=== PATIENT | female | born 1945 | race Asian ===

== ENCOUNTER 2016-09-10 16:55 | Emergency (ER) | payer OTHER, MEDICARE ==
[2016-09-10] MEDS ORDERED: ACETAMINOPHEN 325 MG TABLET PO STA (17:27)
[2016-09-10] MEDS ORDERED: ACETAMINOPHEN 325 MG TABLET PO ONE (17:28)
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
[2016-09-10] MEDS ORDERED: BACITRACIN OINT TOP ONE (18:09)
--- NOTE | 2016-09-10 18:31 | XRAY Preliminary Report ---
Exam: XR Shoulder 3 View LT IMPRESSION: No acute fracture or dislocation. [id number] degenerative joint disease as above. [facility] SITE ID: [id number]
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
--- NOTE | 2016-09-10 18:39 | CT Preliminary Report ---
Exam: CT Cervical Spine W/O IMPRESSION: 1. No evidence for acute fracture. 2. Degenerative changes mild to severe. See above. [facility] SITE ID: [id number]
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
[2016-09-10 19:05] VITALS: BP 119/68
== END 2016-09-10 19:05 | disposition home or self-care (01) ==
LOC: ED 16:55
DX: S16.1XXA Strain of muscle, fascia and tendon at neck level, initial encounter (principal); V43.62XA Car passenger injured in collision with other type car in traffic accident, initial encounter; Y92.411 Interstate highway as the place of occurrence of the external cause; S40.012A Contusion of left shoulder, initial encounter; I10 Essential (primary) hypertension; E11.9 Type 2 diabetes mellitus without complications; Z79.84 Long term (current) use of oral hypoglycemic drugs
CPT/HCPCS: 72125; 73030; 99283; A9270

== ENCOUNTER 2016-11-21 14:53 | Outpatient (CLI) | payer MEDICARE, OTHER ==
[2016-11-21 19:15] LABS: BASOPHILS % (AUTO) 0.7 %; EOSINOPHILS # (AUTO) 0.1 10^3/uL (0.0-0.7); EOSINOPHILS % (AUTO) 1.3 %; HCT - HEMATOCRIT 39.8 % (37.0-47.0); HGB - HEMOGLOBIN 13.6 g/dL (12.0-16.0); LYMPHOCYTES # (AUTO) 2.3 10^3/uL (1.5-3.5); MEAN CORPUSCULAR HEMOGLOBIN 31.1 pg (27.0-31.0); MEAN CORPUSCULAR HGB CONC 34.1 g/dL (32.0-36.0); MEAN CORPUSCULAR VOLUME 91.4 fL (81.0-99.0); MONOCYTES # (AUTO) 0.4 10^3/uL (0.0-1.0); NEUTROPHILS # (AUTO) 2.3 10^3/uL (1.5-6.6); RED BLOOD COUNT 4.36 10^6/uL (4.20-5.40); UNCORRECTED WHITE BLOOD COUNT 5.2 x10^3/uL; WHITE BLOOD COUNT 5.2 x10^3/uL (4.8-10.8)
[2016-11-21 19:30] LABS: ALBUMIN/GLOBULIN RATIO 1.4 (1.0-2.2); BILIRUBIN,TOTAL 0.9 mg/dL (0.2-1.0); BUN - BLOOD UREA NITROGEN 16 mg/dL (6-20); CALCIUM 9.4 mg/dL (8.5-10.3); CARBON DIOXIDE - CO2 29 mmol/L (21-32); CHLORIDE 102 mmol/L (101-111); CHOL/HDL RATIO 3.6 (<4.4); CHOLESTEROL 214 mg/dL; CREATININE 0.9 mg/dL (0.4-1.0); GFR - MDRD 61 (>89); GLUCOSE 274 mg/dL (70-100); HDL CHOLESTEROL 59 mg/dL; SODIUM 137 mmol/L (135-145); TOTAL PROTEIN 6.6 g/dL (6.7-8.2); TRIGLYCERIDES 173 mg/dL; VLDL CHOLESTEROL 35 mg/dL
[2016-11-21 19:41] LABS: POTASSIUM 3.9 mmol/L (3.5-5.0)
[2016-11-21 20:03] LABS: HEMOGLOBIN A1C 1.11 g/dL
== END 2016-11-21 14:54 | disposition home or self-care (01) ==
LOC: LAB.N 14:53
PROVIDERS: ATTEND Nurse Practitioner Gerontology
DX: E11.9 Type 2 diabetes mellitus without complications (principal); I10 Essential (primary) hypertension
CPT/HCPCS: 36415; 80053; 80061; 83036; 85025

== ENCOUNTER 2018-01-30 15:45 | Outpatient (CLI) | payer OTHER, MEDICARE | END 2018-01-30 15:46 | disposition critical access hospital (66) | LOC: EMS 15:45 | PROVIDERS: ATTEND Surgery | DX: S09.90XA Unspecified injury of head, initial encounter (principal); M54.2 Cervicalgia; V48.5XXA Car driver injured in noncollision transport accident in traffic accident, initial encounter; Y92.410 Unspecified street and highway as the place of occurrence of the external cause | CPT/HCPCS: A0425; A0429 ==

== ENCOUNTER 2018-01-30 16:19 | Emergency (ER) | payer OTHER, MEDICARE ==
[2018-01-30] MEDS ORDERED: ACETAMINOPHEN 325 MG TABLET PO STA (16:26)
[2018-01-30] MEDS ORDERED: IBUPROFEN 600 MG TABLET PO STA (16:26)
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
[2018-01-30 17:59] VITALS: BP 135/74
== END 2018-01-30 17:58 | disposition home or self-care (01) ==
LOC: EDUNIT# → ED 16:19
DX: S00.03XA Contusion of scalp, initial encounter (principal); S16.1XXA Strain of muscle, fascia and tendon at neck level, initial encounter; V49.9XXA Car occupant (driver) (passenger) injured in unspecified traffic accident, initial encounter; I10 Essential (primary) hypertension; E11.9 Type 2 diabetes mellitus without complications; Z79.84 Long term (current) use of oral hypoglycemic drugs
CPT/HCPCS: 70450; 72125; 99283; A9270

== ENCOUNTER 2018-03-11 08:00 | Outpatient (CLI) | payer MEDICARE ==
[2018-03-11 20:19] LABS: HB2 TOTAL 16.5 g/dL; HEMOGLOBIN A1C 1.46 g/dL; HEMOGLOBIN A1C % 10.2 % (4.6-6.2)
== END 2018-03-11 23:59 | disposition home or self-care (01) ==
LOC: LAB.N 08:00
PROVIDERS: ATTEND Nurse Practitioner Gerontology
DX: E11.9 Type 2 diabetes mellitus without complications (principal)
CPT/HCPCS: 36415; 83036

== ENCOUNTER 2018-09-25 13:59 | Inpatient (IN) | payer MEDICARE ==
[2018-09-25] MEDS ORDERED: SODIUM CHLORIDE 0.9% 1,000 ML IV ONE ×3 (14:35→15:52)
[2018-09-25] MEDS ORDERED: NALOXONE 0.4 MG/ML VIAL IVP STA (14:38)
[2018-09-25 14:46] LABS: BASOPHILS % (AUTO) 0.3 %; HGB - HEMOGLOBIN 15.2 g/dL (12.0-16.0); LYMPHOCYTES % (AUTO) 35.9 %; MEAN CORPUSCULAR HEMOGLOBIN 29.5 pg (27.0-31.0); MEAN CORPUSCULAR VOLUME 92.2 fL (81.0-99.0); MEAN PLATELET VOLUME 9.3 fL (7.9-10.8); MONOCYTES % (AUTO) 5.9 %; NEUTROPHILS % (AUTO) 57.2 %; PLT - PLATELET COUNT 236 10^3/uL (130-450); RED BLOOD COUNT 5.15 10^6/uL (4.20-5.40); RED CELL DISTRIBUTION WIDTH 13.8 % (12.0-15.0); WHITE BLOOD COUNT 2.9 x10^3/uL (4.8-10.8)
[2018-09-25] MEDS ORDERED: NALOXONE 0.4 MG/ML VIAL ONE (14:47)
[2018-09-25 14:55] LABS: ABNORMAL LYMPHS % (MANUAL) 0 %
[2018-09-25 15:03] LABS: ALBUMIN 3.4 g/dL (3.2-5.5); ALBUMIN/GLOBULIN RATIO 1.1 (1.0-2.2); BILIRUBIN,TOTAL 2.8 mg/dL (0.2-1.0); CALCIUM 7.6 mg/dL (8.5-10.3); CREATININE 3.4 mg/dL (0.4-1.0); TOTAL PROTEIN 6.5 g/dL (6.7-8.2)
[2018-09-25] MEDS ORDERED: IOVERSOL 320 100 ML VIAL IVP ONE (15:10)
[2018-09-25 15:22] LABS: BILIRUBIN,URINE NEGATIVE (NEGATIVE); GLUCOSE, URINE (UA) 100 mg/dL (NEGATIVE); KETONES,URINE (UA) 15 mg/dL (NEGATIVE); LEUKOCYTE ESTERASE, URINE SMALL (NEGATIVE); NITRITE,URINE POSITIVE (NEGATIVE); OCCULT BLOOD,URINE MODERATE (NEGATIVE); PH,URINE 5.5 PH (5.0-7.5); PROTEIN,URINE 30 mg/dL (NEGATIVE); UROBILINOGEN,URINE 0.2 (NORMAL) E.U./dL (NORMAL)
[2018-09-25 15:25] LABS: BACTERIA,URINE Many /HPF (None Seen); CLARITY,URINE SL. CLOUDY (CLEAR); RBC,URINE 0-5 /HPF (0-5); SQUAMOUS EPITHELIAL CELL,UR RARE Squamous (<= Few)
[2018-09-25] MEDS ORDERED: VANCOMYCIN INJ 1 GM in SODIUM CHLORIDE 0.9% 500 ML IV STA (15:38)
[2018-09-25] MEDS ORDERED: cefOXitin 2 GM in SODIUM CHLORIDE 0.9% MINIBAG 100 ML IV STA (15:39)
--- NOTE | 2018-09-25 15:40 | ED Physician Documentation ---
PD HPI ABD PAIN - Stated complaint Stated Complaint: ABD PX - Chief complaint Chief Complaint: Abd Pain - History obtained from History obtained from: Patient - History of Present Illness Timing - onset: Yesterday Timing - details: Gradual onset Quality: Pain Location: All over / everywhere Similar symptoms before: Has not had sx before Recently seen: Emergency Dept (at [facility] yesterday.) - Treatment prior to arrival Treatment prior to arrival: [place] - Additional information Additional information: The patient is a 73-year-old female with history of diabetes, who presents with generalized abdominal pain that started yesterday and has become significantly worse today. She was seen at [facility] emergency department yesterday with abdominal pain. Her laboratory results were unremarkable except for elevated blood sugar of 244. She underwent ultrasound of the right upper quadrant which was unremarkable. She was discharged with a diagnosis of probable gastritis versus esophagitis. Her pain has become worse today and she has taken 8 Vicodin tablets since yesterday. She denies vomiting today, but states that she did vomit once yesterday. She denies fever, cough, chest pain, or shortness of breath. She reports difficulty with urination. She denies history of similar symptoms in the past. Review of Systems Constitutional: denies: Fever Nose: denies: Congestion Cardiac: denies: Chest pain / pressure Respiratory: denies: Dyspnea, Cough GI: reports: Abdominal Pain, Nausea, Vomiting (yesterday but not today), Constipation. denies: Diarrhea : reports: Unable to Void Musculoskeletal: denies: Back pain Neurologic: reports: Generalized weakness PD PAST MEDICAL HISTORY - Past Medical History Cardiovascular: Hypertension Endocrine/Autoimmune: Type 2 diabetes - Past Surgical History Past Surgical History: No - Present Medications Home Medications: Ambulatory Orders Medication Instructions Recorded Confirmed Amlodipine Besylate [Norvasc] 10 mg PO DAILY 09/25/18 09/25/18 Canagliflozin [Invokana] 100 mg PO DAILY 09/25/18 09/25/18 Glipizide [Glucotrol] 10 mg PO DAILYWM 09/25/18 09/25/18 HYDROcod/ACETAM 5/325 [[place] 5/325] 1 - 2 tab PO Q6H PRN 09/25/18 09/25/18 Metformin HCl [Glucophage] 1,000 mg PO BIDWM 09/25/18 09/25/18 Omeprazole 20 mg PO QDAC 09/25/18 09/25/18 Ondansetron Odt [Zofran Odt] 4 mg PO Q6H PRN 09/25/18 09/25/18 - Allergies Allergies/Adverse Reactions: Allergies Allergy/AdvReac Type Severity Reaction Status Date / Time Penicillins Allergy Rash Verified 09/25/18 14:12 - Social History Does the pt smoke?: No Smoking Status: Never smoker Does the pt drink ETOH?: No Does the pt have substance abuse?: No - Immunizations Immunizations are current?: Yes - POLST Patient has POLST: No PD ED PE NORMAL - Vitals Vital signs reviewed: Yes (tachycardic) - General General: Well developed/nourished, Other (Drowsy [place] female who appears ill, moaning.) - HEENT HEENT: Atraumatic, Pharynx benign, Other (Pupils are 3 mm and equal bilaterally. Oropharynx is nonerythematous, buccal mucosa dry.) - Neck Neck: Supple, no meningeal sign, No JVD - Cardiac Cardiac: Other (Rapid rate, regular rhythm.) - Respiratory Respiratory: Clear bilaterally - Abdomen Abdomen: Other (Abdomen is distended and diffusely tender to palpation, with diffuse guarding.) - Back Back: No CVA TTP - Derm Derm: No rash - Extremities Extremities: No edema, No calf tenderness / cord - Neuro Neuro: Alert and oriented X 3, No motor deficit, No sensory deficit Results - Vitals Vitals: Vital Signs - 24 hr 09/25/18 09/25/18 09/25/18 14:07 14:30 15:00 Temperature 36.2 C L Heart Rate 118 H 93 97 Respiratory 18 23 26 H Rate Blood Pressure 99/45 L 80/57 L 91/50 L O2 Saturation 92 85 L 90 L 09/25/18 09/25/18 15:30 16:00 Temperature Heart Rate 96 Respiratory 25 H Rate Blood Pressure 88/63 L 113/63 O2 Saturation 92 Oxygen O2 Source Simple Mask - EKG (time done) 14:42 Rate: Rate (enter#) (100) Rhythm: Sinus tachycardia [place]: Normal Intervals: Normal IN QRS: Normal Ischemia: Normal ST segments Computer interpretation: Agree with computer - Labs Labs: Laboratory Tests 09/25/18 09/25/18 09/25/18 14:37 14:37 14:37 WBC 2.9 L RBC 5.15 Hgb 15.2 Hct 47.5 H MCV 92.2 MCH 29.5 MCHC 32.0 RDW 13.8 Plt Count 236 MPV 9.3 Neut # (Auto) Not Reportable Lymph # (Auto) Not Reportable [place] # (Auto) Not Reportable Eos # (Auto) Not Reportable Baso # (Auto) Not Reportable Absolute Nucleated RBC Not Reportable Total Counted 100 Band Neuts % (Manual) 14 H Abnorm Lymph % (Manual) 0 Metamyelocytes % 5 H Myelocytes % 3 H Nucleated RBC % Not Reportable Neutrophils # (Manual) 1.2 L Lymphocytes # (Manual) 1.2 L Monocytes # (Manual) 0.2 Eosinophils # (Manual) 0.0 Basophils # (Manual) 0.0 Differential Comment MANUAL DIFFERENTIAL WBC Morphology 1+ SMUDGE CELLS Platelet Estimate NORMAL (130-450,000) Platelet Morphology RARE GIANT PLATELETS RBC Morph Micro Appear NORMAL APPEARANCE Sodium 130 L Potassium 4.2 Chloride 94 L Carbon Dioxide 19 L Anion Gap 17.0 H BUN 38 H Creatinine 3.4 H Estimated GFR (MDRD) 13 L Glucose 269 H Lactic Acid Calcium 7.6 L Total Bilirubin 2.8 H AST 29 ALT 16 Alkaline Phosphatase 37 L Troponin I < 0.04 Total Protein 6.5 L Albumin 3.4 Globulin 3.1 Albumin/Globulin Ratio 1.1 Lipase 384 H 09/25/18 14:58 WBC RBC Hgb Hct MCV MCH MCHC RDW Plt Count MPV Neut # (Auto) Lymph # (Auto) [place] # (Auto) Eos # (Auto) Baso # (Auto) Absolute Nucleated RBC Total Counted Band Neuts % (Manual) Abnorm Lymph % (Manual) Metamyelocytes % Myelocytes % Nucleated RBC % Neutrophils # (Manual) Lymphocytes # (Manual) Monocytes # (Manual) Eosinophils # (Manual) Basophils # (Manual) Differential Comment WBC Morphology Platelet Estimate Platelet Morphology RBC Morph Micro Appear Sodium Potassium Chloride Carbon Dioxide Anion Gap BUN Creatinine Estimated GFR (MDRD) Glucose Lactic Acid 4.4 H* Calcium Total Bilirubin AST ALT Alkaline Phosphatase Troponin I Total Protein Albumin Globulin Albumin/Globulin Ratio Lipase - Rads (name of study) CT abd/pelvis Radiology: Prelim report reviewed, EMP read contemporaneously, See rad report (Gross free air and free fluid, appearance of surgical abdomen concerning for hollow viscus perforation. Location of perforation is potentially in the proximal jejunum based on the above observed) PD MEDICAL DECISION MAKING - ED course Complexity details: reviewed old records, reviewed results, re-evaluated patient, considered differential, d/w patient, d/w family, d/w exchange consultant ED course: The patient's presentation is significant for acute surgical abdomen with perforated bowel. The location of the perforation is not clear at this time. She appears septic with hypotension, with a blood pressure of 80/57 at its lowest. Her lactate level is elevated at 4.4. White count is low at 2.9. Her BUN and creatinine are elevated at 38 and 3.4. Lipase is elevated at 384, and bilirubin is 2.8. Blood cultures x2 were drawn and are pending. Because of the patient's drowsiness on initial presentation, with pinpoint pupils, and history of having taken 8 Vicodin since yesterday, Narcan 0.4 mg was administered IV. She did become more alert after Narcan administration. Subsequently, due to her abdominal pain, fentanyl 50 g was administered IV. Further treatment in the emergency department included administration of normal saline 3 L IV. A Baires catheter was inserted and there was only about 100 mL urine output. Vancomycin 1 g was administered IV and cefoxitin 2 g IV. Anesthesia was consulted for placement of central line. I discussed her condition with Dr. Urbina, on-call for general surgery, and she evaluated the patient in the emergency department and plans operative intervention. - Critical Care Time(min): 45 Time Includes: Direct patient care, Review records, Reassess patient, Document care, Coordinate care Data interpretation: Labs, Pulse ox - Sepsis Event Current Stage of Sepsis: Sepsis Initial Hypotension: SBP less than 90 mmHg Possible source of Sepsis: GI tract/intra-abdominal Mental/Cognitive Status: Alert/Oriented X3 Capillary refill: Less than 2 seconds Peripheral Pulse Strength: 2+ Slightly Diminished Peripheral Pulse Location: Radial Bedside ultrasound performed: Yes Departure - Departure Disposition: 66 [facility] DC/Xfer Clinical Impression: Perforated bowel Sepsis Qualifiers: Sepsis type: sepsis due to unspecified organism Qualified Code(s): A41.9 - Se psis, unspecified organism Condition: Critical Discharge Date/Time: 09/25/18 17:38
[2018-09-25 15:44] LABS: BAND NEUTROPHILS % (MANUAL) 14 %; BASOPHILS % (MANUAL) 1 %; LYMPHOCYTES # (MANUAL) 1.2 10^3/uL (1.5-3.5); LYMPHOCYTES % (MANUAL) 43 %; METAMYELOCYTES % (MANUAL) 5 %; MONOCYTES # (MANUAL) 0.2 10^3/uL (0.0-1.0); MYELOCYTES % (MANUAL) 3 %; NEUTROPHILS # (MANUAL) 1.2 10^3/uL (1.5-6.6); NEUTROPHILS % (MANUAL) 27 %
--- NOTE | 2018-09-25 15:44 | CT Report ---
Reason: ABDOMINAL PAIN Procedure Date: 09/25/2018 Accession Number: [id number] / [id number] Procedure: CT - Abdomen/Pelvis WO CPT Code: FULL RESULT: EXAM: CT ABDOMEN AND PELVIS (CT KUB) WITHOUT CONTRAST. EXAM DATE: 09/25/2018 03:30 PM. CLINICAL HISTORY: Abdominal pain. COMPARISONS: ABDOMEN/PELVIS W/O 03/09/2018 10:59 AM. TECHNIQUE: Routine axial helical CT imaging was performed through the abdomen and pelvis without IV contrast. Reconstructions: Coronal and sagittal. In accordance with CT protocol optimization, one or more of the following dose reduction techniques were utilized for this exam: automated exposure control, adjustment of mA and/or KV based on patient size, or use of iterative reconstructive technique. FINDINGS: Lung bases demonstrate bibasilar consolidation, small to moderate. There is large volume free air with moderate to large volume free fluid in abdomen and pelvis. Small locules of gas are seen tracking along fluid is subjectively thickened proximal jejunum. See image 117 series 3, image 67 series 6 and associated nearby bowel loops with thickening as seen on image 97 series 3, approximately 20 cm distal to the ligament of Treitz. Frothy appearance of fluid is seen in the pelvis in dependent and nondependent areas, presumed bowel content. Additional free air is trapped in the region of the gallbladder fossa and near the stomach as well as alongside the inferior margin of the left lobe of the liver. The liver, gallbladder, spleen, kidneys and adrenal glands as well as pancreas are grossly intact on noncontrast examination. No aggressive osseous lesion is detected. Prominent lymph nodes are seen throughout the mesentery. IMPRESSION: Gross free air and free fluid, appearance of surgical abdomen concerning for hollow viscus perforation. Location of perforation is potentially in the proximal jejunum based on the above observations. DON The call report notification system was initiated by Dr. Piotr Freedman at 03:43 PM on 09/25/2018. The above call report findings were discussed with Lance Cedeno by Dr. Piotr Freedman at 03:45 PM on 09/25/2018.
[2018-09-25 15:45] LABS: DIFFERENTIAL COMMENT MANUAL DIFFERENTIAL; PLATELET ESTIMATE, MANUAL NORMAL (130-450,000) (NORMAL); PLATELET MORPHOLOGY RARE GIANT PLATELETS (NORMAL); RBC MORPHOLOGY (MULTIPLE) NORMAL APPEARANCE (NORMAL)
[2018-09-25] MEDS ORDERED: fentaNYL 100 MCG/2 ML VIAL IVP STA (16:05)
--- NOTE | 2018-09-25 16:49 | ANESTHESIA ---
Pre-Anesthesia VS, & Labs - Diagnosis perforated bowel - Procedure exploratory laparotomy Vital Signs: Temp Pulse Resp BP Pulse Ox 36.2 C L 118 H 18 99/45 L 92 09/25/18 14:07 09/25/18 14:07 09/25/18 14:07 09/25/18 14:07 09/25/18 14:07 Height 5 ft 2 in Weight (kg) 72.575 kg Body Mass Index 29.2 - NPO Last Food Intake: 1500 she had rice - Is Patient ?: No - Lab Results Current Lab Results: Laboratory Tests 09/25/18 14:58: Lactic Acid 4.4 H* 09/25/18 14:37: Troponin I < 0.04 09/25/18 14:37: Sodium 130 L, Potassium 4.2, Chloride 94 L, Carbon Dioxide 19 L, Anion Gap 17.0 H, BUN 38 H, Creatinine 3.4 H, Estimated GFR (MDRD) 13 L, Glucose 269 H, Calcium 7.6 L, Total Bilirubin 2.8 H, AST 29, ALT 16, Alkaline Phosphatase 37 L, Total Protein 6.5 L, Albumin 3.4, Globulin 3.1, Albumin/Globulin Ratio 1.1, Lipase 384 H 09/25/18 14:37: WBC 2.9 L, RBC 5.15, Hgb 15.2, Hct 47.5 H, MCV 92.2, MCH 29.5, MCHC 32.0, RDW 13.8, Plt Count 236, MPV 9.3, Neut # (Auto) Not Reportable, Lymph # (Auto) Not Reportable, [facility] # (Auto) Not Reportable, Eos # (Auto) Not Reportable, Baso # (Auto) Not Reportable, Absolute Nucleated RBC Not Reportable, Total Counted 100, Band Neuts % (Manual) 14 H, Abnorm Lymph % (Manual) 0, Metamyelocytes % 5 H, Myelocytes % 3 H, Nucleated RBC % Not Reportable, Neutrophils # (Manual) 1.2 L, Lymphocytes # (Manual) 1.2 L, Monocytes # (Manual) 0.2, Eosinophils # (Manual) 0.0, Basophils # (Manual) 0.0, Differential Comment MANUAL DIFFERENTIAL, WBC Morphology 1+ SMUDGE CELLS, Platelet Estimate NORMAL (1 30-450,000), Platelet Morphology RARE GIANT PLATELETS, RBC Morph Micro Appear NORMAL APPEARANCE Fish Bones: 09/25/18 14:37 09/25/18 14:37 Home Medications and Allergies Active Medications Vancomycin HCl 1 gm/ Sodium (Chloride) 500 mls @ 250 mls/hr IV ONCE STA Stop: 09/25/18 17:37 Last Admin: 09/25/18 16:16 Dose: 250 mls/hr metFORMIN [Glucophage] 05/08/14 Allergies/Adverse Reactions: Allergies Allergy/AdvReac Type Severity Reaction Status Date / Time Penicillins Allergy Rash Verified 09/25/18 14:12 Anes History & Medical History - Anesthetic History Anesthesia Complications: reports: No previous complications - Medical History Cardiovascular: reports: Hypertension Pulmonary: reports: None Gastrointestinal: reports: Other (perforated bowel) Urinary: reports: None Neuro: reports: None Musculoskeletal: reports: None Endocrine/Autoimmune: reports: Type 2 diabetes Blood Disorders: reports: None Skin: reports: None Smoking Status: Never smoker Psychosocial: reports: No issues indicated Exam General: Severe distress Dental: WNL Mouth Openin Fingerbreadth Neck Mobility: Normal Mallampati classification: II Thyromental Distance: greater than 6 cm Respiratory: Lungs clear, Normal breath sounds, No respiratory distress, No accessory muscle use Cardiovascular: Regular rate (tachy), Normal S1, Normal S2, No murmurs Mental/Cognitive Status: Lethargic Plan Anesthesia Type: General, Other (Central line and arterial line) Consent for Procedure(s) Verified and Reviewed: Yes Code Status: Attempt Resuscitation ASA classification: 4-Incapacitating disease Is this case an emergency?: Yes
--- NOTE | 2018-09-25 16:57 | HISTORY & PHYSICAL EXAMINATION ---
Chief Complaint - Chief Complaint Chief Complaint: Severe abdominal pain History of Present Illness - Admitted From Admitted From:: Emergency Department - History Obtained From Records Reviewed: ED Record History obtained from: and Friend Exam Limitations: Patient in severe distress - History of Present Illness HPI Comment/Other: Marah is a 73 year old lady employed by a local [employer]. Family reports that she was taken to the [facility] emergency room yesterday afternoon at approximately 1:00 with severe abdominal pain.She was seen and evaluated there and found to have a normal ultrasound and essentially normal and reassuring labs. She was discharged from that facility with some pain medication and other medications which will be identified later. The family reports that she was in severe pain all evening and only slept about 2 hours.The pain has gotten progressively more severe over the day.She is accompanied by both a close friend and her .The friend reports that they gave her her medication as they were directed to but when her pain became too severe to handle, they decided to bring her to the emergency room.In the emergency department here she was found to be hypotensive and tachycardic consistent with sepsis.A CT scan of the abdomen and pelvis revealed free air and free fluid. The radiologist felt that the perforation was somewhere in the region of the pr oximal jejunum. History - Past Medical History Cardiovascular: reports: Hypertension Respiratory: reports: None Endocrine/Autoimmune: reports: Type 2 diabetes GI: reports: Other (perforated bowel) PIE BAKER: reports: Other (Denies) MRSA Hx?: No - Family & Social History Family History: Other family: Alive and Well (Daughter is alive and well.) Living arrangement: At home Living Situation: With spouse/s.o. - POLST Patient has POLST: No Meds/Allgy - Home Medications Home Medications: Ambulatory Orders Medication Instructions Recorded Confirmed metFORMIN [Glucophage] 05/08/14 05/08/14 Ibuprofen [Motrin] 600 mg PO TID #30 tab 01/30/18 Methocarbamol [Robaxin] 500 mg PO Q6H PRN #25 tablet 01/30/18 Hydrocodone/Acetaminophen 1 - 2 each PO Q6H PRN #14 tablet 03/09/18 [Hydrocodon-Acetaminophen 5-325] - Allergies Allergies/Adverse Reactions: Allergies Allergy/AdvReac Type Severity Reaction Status Date / Time Penicillins Allergy Rash Verified 06/26/19 14:12 Review of Systems - Constitutional Constitutional: reports: Fatigue, Chills, Malaise, Weakness, Poor appetite, Diaphoresis, Night sweats - Eyes Eyes: denies: Pain - Ears, Nose & Throat Ears, Nose & Throat: reports: Vertigo. denies: Ear pain, Tinnitus, Hoarseness - Cardiovascular Cariovascular: reports: Palpitations, Lightheadedness. denies: Irregular heart rate - Respiratory Respiratory: reports: SOB at rest - Gastrointestinal Gastrointestinal: reports: Abdominal pain, Abdominal distention, Nausea - Musculoskeletal Musculoskeletal: reports: Back pain Exam - Vital Signs Vital Signs: Vital Signs x48h Temp Pulse Resp BP Pulse Ox 09/25/18 14:07 36.2 C L 118 H 18 99/45 L 92 - Physical Exam General Appearance: positive: Severe distress Eyes Bilateral: positive: Normal inspection, PERRL, EOMI ENT: positive: ENT inspection nml Neck: positive: Nml inspection, No JVD, Trachea midline Respiratory: positive: Chest non-tender, Breath sounds nml Cardiovascular: positive: Regular rate & rhythm, Tachycardia Abdomen: positive: Tenderness, Guarding, Rebound, Abnml bowel sounds, Other (No bowel sounds) Back: positive: Nml inspection Skin: positive: Diaphoresis, Pallor Neurologic/Psychiatric: positive: Oriented x3, CN's nml (2-12) Sepsis Event Note (H) - Evaluation Current Stage of Sepsis: Septic shock Possible source of Sepsis: positive: GI tract/intra-abdominal Sepsis Associated Organ Dysfunction: Acute renal injury - Sepsis Criteria Sepsis Criteria: Recorded Heart Rate greater than 90 bpm, Recorded Respiratory Rate greater than 20, WBC count greater than 12,000 or less than 4000, MAP less than 65 mmHg, Metabolic: lactate > 2 mmol/L, Hepatic: Bilirubin greater than 2mg/dl Conclusion/Plan - Problem List (1) Perforated bowel Conclusion/Plan: Go directly to the operating room for exploratory laparotomy with likely bowel resection and possible ostomy.I discussed with the patient, her , her friend, and her daughter that she is gravely ill.She will require admission to the intensive care unit in the postoperative period and careful management of her septic state.I have discussed the risks and benefits of exploratory laparotomy with indicated procedures in the patient, her , her daughter, and her friend have all expressed a desire to have this procedure. (2) Sepsis Qualifiers: Sepsis type: sepsis due to unspecified organism Qualified Code(s): A41.9 - Sepsis, unspecified organism - Lab Results Fish Bones: 09/25/18 14:37 09/25/18 14:37 - Diagnostic Imaging Results Diagnostic Imaging Results: positive: Final report reviewed, Read contemporaneously Diagnostic Imaging Results Comments: IMPRESSION: Gross free air and free fluid, appearance of surgical abdomen concerning for hollow viscus perforation. Location of perforation is potentially in the proximal jejunum based on the above observations.
--- NOTE | 2018-09-25 17:02 | XRAY Report ---
Reason: Central line placement Procedure Date: 09/25/2018 Accession Number: [id number] / [id number] Procedure: XR - Chest for Line Placement CPT Code: FULL RESULT: EXAM: CHEST RADIOGRAPHY EXAM DATE: 09/25/2018 04:50 PM. CLINICAL HISTORY: Central line placement. COMPARISON: XR CHEST PA AND LAT 04/24/2011 4:09 PM. TECHNIQUE: 1 view. FINDINGS: Lungs/Pleura: Suboptimal degree of inspiration. Elevation of right hemidiaphragm. Extensive streaky atelectasis versus infiltrate in both lungs. No consolidation, definite effusion, or pneumothorax. Mediastinum: Mild cardiomegaly. Tortuous and ectatic aorta. Other: Right central line tip near cavoatrial junction about 5.7 cm below level of jude. IMPRESSION: Central line tip near cavoatrial junction. RADIA
[2018-09-25] MEDS ORDERED: LACTATED RINGERS 1,000 ML IV ONE ×2 (17:52→19:30)
[2018-09-25] MEDS ORDERED: fentaNYL 100 MCG/2 ML VIAL IVP ONE (18:00)
[2018-09-25] MEDS ORDERED: SUCCINYLCHOLINE 200 MG/10 ML VIAL IVP ONE (18:00)
[2018-09-25] MEDS ORDERED: PROPOFOL 200 MG/20 ML VIAL IVP ONE (18:00)
[2018-09-25] MEDS ORDERED: LIDOCAINE-MPF 2% 5 ML VIAL IM ONE (18:00)
[2018-09-25] MEDS ORDERED: ROCURONIUM 50 MG/5 ML VIAL IVP ONE (18:00)
[2018-09-25] MEDS ORDERED: PHENYLEPHRINE 50 MG/5 ML VIAL IV ONE (18:00)
[2018-09-25] MEDS ORDERED: VASOPRESSIN 20 UNIT/ML VIAL IVP ONE (18:00)
[2018-09-25] MEDS ORDERED: ONDANSETRON 4 MG/2 ML VIAL IVP PRN (19:16)
--- NOTE | 2018-09-25 19:49 | OPERATIVE REPORT ---
Operative Report - General Admit Date: 09/25/18 Procedure Date: 09/25/18 Planned Procedure: Exploratory laparotomy with possible bowel resection or ostomy Pre-Op Diagnosis: Perforated viscus with sepsis Procedure Performed: Exploratory laparotomyWith repair of pyloric channel ulcer and Venkat patch Post Op Diagnosis: Same - Procedure Note Primary Surgeon: Carlitos Anesthesia Provider: KIERAN Singh Anesthesia Technique: General ET tube Estimated Blood Loss (mL): 150 Drain/Tube Type: Demetrius Anne drain (1 in the gallbladder fossa on the right and a second in the sub-phrenic space on the left) Findings: 1. 1 to 1.5 cm perforated pyloric channel ulcer. 2. 3 L of succus entericus within the abdominal cavity Complications: None apparent - Other Other Information/Narrative: After obtaining informed consent, the patient is brought to the operating room and placed in the supine position on the operating table. Following successful induction of general endotracheal anesthesia, appropriate padding of all bony prominences, and placement of appropriate monitors, the abdomen is prepped and draped in the standard surgical fashion. A timeout was held per SCOAP protocol. We began by making a midline incision and carrying it down through the skin and subcutaneous tissue to reveal the fascia below. The fascia was entered under direct vision and we immediately encountered a large volume of succus entericus. This was aspirated from the abdominal cavity and was determined to be approximately 3 L in total volume.We began examination of the abdominal cavity. The jejunum was felt to be the most likely site of perforation based on the CT scan. The entire small bowel was examined from the ligament of Treitz to the ileocecal valve with no significant abnormality appreciated. We extended our incision proximally and immediately identified a anteriorly perforated pyloric channel ulcer. The ulcer was approximately0.5 cm in greatest dimension.A portio n of the mucosa was trimmed and retained for specimen.The ulcer itself was then addressed by opening the pylorus longitudinallyAnd closing it vertically.The muscle fibers of the pylorus itself were carefully divided.It was then closed in 2 layers with 2-0 silk suture.A patch of omentum was carefully mobilized from the gastrocolic ligament and placed over the repair.This was sewn into place as a Venkat patch.The abdomen was then irrigated with 4 L of warm saline solution and aspirated free of all fluid and particulate matter.A 20 [place] ZULAY drain was brought out through the right lateral abdominal wall and placed in the subhepatic space posterior and anterior to the repair. The drain was not placed directly over the repair.A second ZULAY drain was brought out through the left abdominal wall and placed in the left subphrenic space as there has been a large volume of succus and fibrinous exudate in this region.The wound was checked once again for hemostasis.A small piece of Surgicel was placed over a 0.5 cm liver laceration to ensure hemostasis.I believe this occurred at the time of retraction.The wound was checked once again for hemostasis. The fascia was closed with a running 0 looped PDS sutureThe wound was checked once again for hemostasis. The fascia was closed with a running oh looped PDS sutureAll sponge, needle, and instrument counts were correct at the conclusion of the ca se. The patient was taken directly from the operating room to the intensive care unit for continued recovery and support.
[2018-09-25] MEDS ORDERED: SODIUM CHLORIDE 0.9% 1,000 ML IV SCH (20:00)
--- NOTE | 2018-09-25 20:19 | CONSULTATION NOTE ---
Referring Provider Name of Referring Provider:: Dr. Urbina Consult Date: 09/25/18 Chief Complaint - Chief Complaint Chief Complaint: Severe abdominal pain History of Present Illness - Admitted From Admitted From:: ED - History Obtained From Records Reviewed: Yes History obtained from: OR/ICU staff and Primary referring gen surgeon Exam Limitations: Patient sedated and ventilated - History of Present Illness HPI Comment/Other: Marah is a 73 year old femle with PMhx significant for type 2 DM (NIDDM) who is on MFM, Invokana and glipizide, GERD/PUD on PPI, HTN on Norvasc, she is employed by a local [employer]. Family reports that she was t orestes to the [facility] emergency room yesterday afternoon at approximately 1:00 with severe abdominal pain.She was seen and evaluated there and found to have a normal ultrasound and essentially normal and reassuring labs. She was discharged from that facility with some pain medication and other medications which will be identified later. The family reports that she was in severe pain all evening and only slept about 2 hours.The pain has gotten progressively more severe over the day.She is accompanied by both a close friend and her .The friend reports that they gave her her medication as they were directed to but when her pain became too severe to handle, they decided to bring her to the emergency room.In the emergency department here she was found to be hypotensive and tachycardic consistent with sepsis. A CT scan of the abdomen and pelvis revealed free air and free fluid. The radiologist felt that the perforation was somewhere in the region of the proximal jejunum. Hospitalist service was consulted for critical care management of septic/distributive shock secondary to perforated pyloric ulcer s/p exploratory laparotomy with pyloric channel repair and plcmt of lisa patch POD#0, now has ZULAY drains and has received approximately almost 5L of aggressive IVF resuscitat ion, on pressor support with weaning levophed from 18 mcg/hr to 8 mcg now, UO steadily improving from 100 cc>160 cc in last couple hrs, has PCN allergy and is on IV merrem from anaerobic and broad coverage. Currently MAP>90 with BP 100/[facility] with settings of PEEP 5, 80% Fio2, RR 20, and PS 10, RT to draw an ABG. TONEY seen in the setting of septic shock with baseline range 0.7-0.9, Cr 3.4 with LA 4.4 on admission. Bandemia of 14% seen with no drops in H/H, WBC 2.9, Tbili 2.8, lipase 384, w/ no transaminases elevation, on LR and NS to switch to PPN with D5NS with ISS on NPO/TPN protocol and will implement sedation protocol with propofol gtt. Ucx, blood cultures drawn, CVP and a-line present and appear C/D/I as well as surgical site, ZULAY drain with blood serous fluid. Lung exam with bilteral rhonchi no rales or wheezing, and abd appears non-tense with no distention but absent BS. 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 - POLST Patient has POLST: No Meds/Allgy - Home Medications Home Medications: Ambulatory Orders Medication Instructions Recorded Confirmed Amlodipine Besylate [Norvasc] 10 mg PO DAILY 09/25/18 09/25/18 Canagliflozin [Invokana] 100 mg PO DAILY 09/25/18 09/25/18 Glipizide [Glucotrol] 10 mg PO DAILYWM 09/25/18 09/25/18 HYDROcod/ACETAM 5/325 [[place] 5/325] 1 - 2 tab PO Q6H PRN 09/25/18 09/25/18 Metformin HCl [Glucophage] 1,000 mg PO BIDWM 09/25/18 09/25/18 Omeprazole 20 mg PO QDAC 09/25/18 09/25/18 Ondansetron Odt [Zofran Odt] 4 mg PO Q6H PRN 09/25/18 09/25/18 - Allergies Allergies/Adverse Reactions: Allergies Allergy/AdvReac Type Severity Reaction Status Date / Time Penicillins Allergy Rash Verified 09/25/18 14:12 Review of Systems - All Other Systems All Other Systems: reports: Reviewed and negative Exam - Vital Signs Reviewed Vital Signs: Yes Vital Signs: Vital Signs x48h Temp Pulse Resp BP Pulse Ox 09/25/18 17:00 36.6 C 103 H 25 H 111/69 92 09/25/18 16:30 98 27 H 121/63 93 09/25/18 16:00 96 25 H 113/63 92 09/25/18 15:30 88/63 L 09/25/18 15:00 97 26 H 91/50 L 90 L 09/25/18 14:30 93 23 80/57 L 85 L 09/25/18 14:07 36.2 C L 118 H 18 99/45 L 92 - Physical Exam General Appearance: positive: No acute distress, Other (Currently inbtubated, seadted and MV) Eyes Bilateral: positive: Conjunctivae nml ENT: positive: No signs of dehydration Neck: positive: Nml inspection, Thyroid nml, No JVD, Trachea midline. negative: Carotid bruit Respiratory: positive: Chest non-tender, No respiratory distress, Breath sounds nml, Rhonchi. negative: Wheezes, Rales Cardiovascular: positive: Regular rate & rhythm, No murmur, No gallop, T achycardia. negative: JVD present Peripheral Pulses: positive: 2+ Abdomen: positive: No distention, Abnml bowel sounds. negative: Bruit Skin: positive: Color nml, No rash, Warm Extremities: positive: Nml appearance, No pedal edema Neurologic/Psychiatric: positive: Other (Unable to assess due to intubated, sedated and MV status) Babinski Reflex: Right: Absent, Left: Absent Conclusion/Plan - Diagnosis Diagnosis: 1. Acute perforated pyloric ulcer s/p exploratory Lap with repair PO D#0. 2. Acute hypoxemic Resp failure with associated Left basilar pleural effusion sec to septic shock. 3. Septic Shock with early distributive shock and MODS secondary to #1. 4. Acute kidney Injury sec to septic/distributive shock. 5. Metabolic acidosis sec to TONEY from septic shock with associated oliguria. 6. Hyperglycemia in NIDDM, type 2 DM. 7. Electrolyte disturbance; hypocalcemia, hypontremia. 8. Bandemia secondary to septic shock. 9. hx GERD/PUD on IV PPI. 10. Hx HTN, currently hypotensive sec to septic shock. 11. Advanced care planning. Code Status: FULL code - Plan Plan: Hospitalist service was consulted for critical care management of septic/distributive shock secondary to perforated pyloric ulcer s/p exploratory laparotomy with pyloric channel repair and plcmt of lisa patch POD#0, now has ZULAY drains and has received approximately almost 5L of aggressive IVF resuscitation, on pressor support with weaning levophed from 18 mcg/hr to 8 mcg now, UO steadily improving from 100 cc>160 cc in last couple hrs, has PCN allergy and is on IV merrem from anaerobic and broad coverage. Currently MAP>90 with BP 100/50 tachy at [address] [facility] Vent with settings of PEEP 5, 80% Fio2, RR 20, and PS 10, RT to draw an ABG. TONEY seen in the setting of septic shock with baseline range 0.7-0.9, Cr 3.4 with LA 4.4 on admission. Bandemia of 14% seen with no drops in H/H, WBC 2.9, Tbili 2.8, lipase 384, w/ no transaminases elevation, on LR and NS to switch to PPN with D5NS with ISS on NPO/TPN protocol and will implement sedation protocol with propofol gtt. Ucx, blood cultures drawn, CVP and a-line present and appear C/D/I as well as surgical site, ZULAY drain with blood serous fluid. Lung exam with bilateral rhonchi no rales or wheezing, and abd appears non-tense with no distention but absent BS. Would continue with critical care mgmt with "early goal directed Tx" with levophed gtt to maintain MAP>65, Sedation with propofol due to its shorter half life and RASS assessment, cover empirically with Merrem as she has PCN allergy, mitigate and mminimize post-op complications, CXR to eval for atelectasis, draw blood cultures, UA with reflex cx if T>100.4, current cultures pending. Perfuse kidneys with IVF's, avoid nephrotoxic agents, renal adjust meds in TONEY seco to septic shock, as well as shock type biliary evidence with hyperbilirubinemia and elevated lipase to continue monitoring with daily CMP/CBC, bandemia marked see in septic shock. LA trending to prognosticate severity of septic/early distributive shock, correct underlying electrolytes. PPN for now with NIDDM utilizing ISS NPO/TPN protocol, bowel rest, NPO, pain mgmt with IV dilaudid. MV parameters with wean as deemed appropriate with serial ABG's. Patient's ABG shows metabolic acidosis, serum ketones neg, However ph reflecting persistent acidemia, with bicarb 17 (on ABGx3), s/p 1 dose of 50 meq bicarb, would initiate a bicarb gtt. Hyponatremia was corrected however hypocalcemia present with low corrected calcium level as well as ionized calcium levels; PTH and Vit D ordered, on ICU replacement protocol. Will increase FiO2 100% and increase PEEP as well as decrease RR per respiratory in the setting of persistent acidemia and hypoxemia. Concern for ARDS in the setting of septic shock and possible alveolar infiltration with left side pleural effusion albeit it small was not seen on initial post-op CXR. BNP elevated, CXR in am, ECHO ordered to eval EF, cardiac tamponade, pericardial effusion, MWA or RVD or strain. Total CC time: 35 min. - Lab Results Fish Bones: 09/26/18 04:00 09/26/18 04:00 - Diagnostic Imaging Results Diagnostic Imaging Results: positive: Final report reviewed (CXR ET above clavicle (prelim read)) - EKG Results EKG Interpreted Independently: No - Other Other Results/Comments: Total CC time 35 min
[2018-09-25] MEDS: PROPOFOL 1000 MG/100 ML 100 ML IV SCH (20:30)
[2018-09-25] MEDS: MEROPENEM 500 MG in SODIUM CHLORIDE 0.9% MINIBAG 100 ML IV SCH (20:33)
[2018-09-25 21:01] LABS: VBG PH 7.166 (7.31-7.41)
[2018-09-25 21:11] LABS: HB2 TOTAL 13.6 g/dL; HEMOGLOBIN A1C 0.76 g/dL; HEMOGLOBIN A1C % 7.3 % (4.6-6.2)
[2018-09-25] MEDS: INSULIN REGULAR HUMAN 100 UNIT/1 ML 10 ML MDV SUBQ SCH (21:45)
[2018-09-25] MEDS: DEXTROSE 5%-0.9% NACL 1,000 ML IV SCH (21:45)
[2018-09-25] MEDS: PANTOPRAZOLE 40 MG VIAL IVP SCH (21:46)
[2018-09-25] MEDS: SODIUM CHLORIDE FLUSH 0.9% 10 ML SYRINGE IVP SCH (21:46)
[2018-09-25] MEDS: SODIUM CHLORIDE FLUSH 0.9% 10 ML SYRINGE IVP PRN (21:46)
[2018-09-25 22:22] LABS: ABG BASE EXCESS -10.3 mmol/L (-2.0-3.0); ABG HCO3 16.7 mmol/L (22.0-26.0); ABG OXYGEN SATURATION 91 % (94-98); ABG PCO2 40 mmHg (34-45); ABG PH 7.23 (7.35-7.45); ABG PO2 61 mmHg (80-100); ABG TCO2 17.9 MMOL/L (21.0-29.0); ALLEN TEST POSITIVE
--- NOTE | 2018-09-25 22:22 | XRAY Report ---
Reason: ET tube placement Procedure Date: 09/25/2018 Accession Number: [id number] / [id number] Procedure: XR - Chest 1 View X-Ray CPT Code: 85177 FULL RESULT: EXAM: CHEST RADIOGRAPHY EXAM DATE: 09/25/2018 08:13 PM. CLINICAL HISTORY: ET tube placement. COMPARISON: CHEST FOR LINE PLACEMENT 09/25/2018 4:35 PM. TECHNIQUE: 1 view. FINDINGS: Lungs/Pleura: Small left effusion. Bibasilar lung opacification as before. No pneumothorax. Mediastinum: Contours are stable Other: Right IJ line tip terminates at the cavoatrial junction. Endotracheal tube 4.1 cm above the jude. Enteric tube curled within the stomach fundus. IMPRESSION: Endotracheal tube 4.1 as of the jude. Bibasilar lung opacification and small left effusion as before. RADIA
[2018-09-25 23:08] LABS: ABG BASE EXCESS -10.4 mmol/L (-2.0-3.0); ABG PCO2 43 mmHg (34-45); ABG PH 7.22 (7.35-7.45); ABG PO2 69 mmHg (80-100); ABG TCO2 18.3 MMOL/L (21.0-29.0)
[2018-09-25 23:09] LABS: ABG OXYGEN SATURATION 93 % (94-98); ALLEN TEST POSITIVE
[2018-09-25] MEDS: SODIUM CHLORIDE 0.9% 1,000 ML IV PRN (23:12)
--- NOTE | 2018-09-25 23:19 | XRAY Report ---
Reason: Post adjustment ET tube placement Procedure Date: 09/25/2018 Accession Number: [id number] / [id number] Procedure: XR - Chest for Line Placement CPT Code: FULL RESULT: EXAM: CHEST RADIOGRAPHY EXAM DATE: 09/25/2018 09:35 PM. CLINICAL HISTORY: Post adjustment ET tube placement. COMPARISON: CHEST 1 VIEW 09/25/2018 7:57 PM. TECHNIQUE: 1 view. FINDINGS IMPRESSION: Endotracheal tube is now 2.3 cm above the jude. Other support lines and tubes are stable. Lung aeration is unchanged. RADIA
[2018-09-26] MEDS: INSULIN REGULAR HUMAN 100 UNIT/1 ML 10 ML MDV SUBQ SCH ×4 (00:10→18:38)
[2018-09-26] MEDS ORDERED: SODIUM BICARBONATE ABBOJECT 50 MEQ/50 ML SYRINGE IVP SCH ×2 (00:15→00:30)
[2018-09-26] MEDS ORDERED: DEXTROSE 5% 250 ML IV ONE (00:49)
[2018-09-26] MEDS: SODIUM CHLORIDE 0.9% 1,000 ML IV PRN (02:50)
[2018-09-26 04:20] LABS: ABG PCO2 41 mmHg (34-45); ABG PH 7.24 (7.35-7.45); ABG PO2 98 mmHg (80-100); ABG TCO2 18.3 MMOL/L (21.0-29.0)
[2018-09-26 04:21] LABS: ABG BASE EXCESS -9.8 mmol/L (-2.0-3.0); ABG OXYGEN SATURATION 97 % (94-98); ALLEN TEST POSITIVE
[2018-09-26 04:23] LABS: BASOPHILS % (AUTO) 0.3 %; HGB - HEMOGLOBIN 13.1 g/dL (12.0-16.0); LYMPHOCYTES % (AUTO) 22.6 %; MEAN CORPUSCULAR HEMOGLOBIN 30.2 pg (27.0-31.0); MEAN CORPUSCULAR HGB CONC 32.6 g/dL (32.0-36.0); MEAN CORPUSCULAR VOLUME 92.6 fL (81.0-99.0); MEAN PLATELET VOLUME 9.8 fL (7.9-10.8); MONOCYTES % (AUTO) 5.2 %; NEUTROPHILS % (AUTO) 66.7 %; PLT - PLATELET COUNT 193 10^3/uL (130-450); RED BLOOD COUNT 4.34 10^6/uL (4.20-5.40); RED CELL DISTRIBUTION WIDTH 14.3 % (12.0-15.0); WHITE BLOOD COUNT 2.9 x10^3/uL (4.8-10.8)
[2018-09-26 04:27] LABS: ABNORMAL LYMPHS % (MANUAL) 0 %
[2018-09-26] MEDS: MEROPENEM 500 MG in SODIUM CHLORIDE 0.9% MINIBAG 100 ML IV SCH ×3 (04:28→20:13)
[2018-09-26 04:41] LABS: ALBUMIN/GLOBULIN RATIO 0.9 (1.0-2.2); CREATININE 2.2 mg/dL (0.4-1.0); MAGNESIUM 2.4 mg/dL (1.7-2.8); TOTAL PROTEIN 4.3 g/dL (6.7-8.2)
[2018-09-26 04:42] LABS: CALCIUM 6.1 mg/dL (8.5-10.3)
[2018-09-26 04:44] LABS: BAND NEUTROPHILS % (MANUAL) 28 %; DIFFERENTIAL COMMENT MANUAL DIFFERENTIAL; LYMPHOCYTES # (MANUAL) 0.9 10^3/uL (1.5-3.5); LYMPHOCYTES % (MANUAL) 32 %; METAMYELOCYTES % (MANUAL) 3 %; MONOCYTES # (MANUAL) 0.2 10^3/uL (0.0-1.0); MYELOCYTES % (MANUAL) 1 %; NEUTROPHILS # (MANUAL) 1.7 10^3/uL (1.5-6.6); NEUTROPHILS % (MANUAL) 29 %; PLATELET ESTIMATE, MANUAL NORMAL (130-450,000) (NORMAL); RBC MORPHOLOGY (MULTIPLE) NORMAL APPEARANCE (NORMAL)
[2018-09-26 05:22] LABS: VBG PH 7.22 (7.31-7.41)
[2018-09-26] MEDS ORDERED: SODIUM BICARBONATE 8.4% 50 MEQ/50 ML VIAL ONE (05:22)
[2018-09-26] MEDS: SODIUM CHLORIDE FLUSH 0.9% 10 ML SYRINGE IVP PRN ×4 (05:22→21:44)
[2018-09-26] MEDS: SODIUM BICARBONATE 150 MEQ in DEXTROSE 5% 1,000 ML IV SCH ×2 (05:33→17:19)
[2018-09-26] MEDS ORDERED: DEXTROSE 5% 1,000 ML IV ONE (05:37)
[2018-09-26] MEDS: PROPOFOL 1000 MG/100 ML 100 ML IV SCH ×3 (05:45→22:27)
--- NOTE | 2018-09-26 08:00 | PROVIDER PROGRESS NOTE ---
Subjective - Prog Note Date Prog Note Date: 09/26/18 Prog Note Time: 16:33 - Subjective Subjective: Overnight, since being out of the OR, she is required a Levophed drip, and 1500 cc boluses. She is also been placed on a bicarb drip. Echocardiogram is cu rrently being done to evaluate for right ventricular strain in the face of the patient who is developed ARDS. Current Medications - Current Medications Current Medications: Active Medications Enoxaparin Sodium (Lovenox) 30 mg SUBQ DAILY ZULLY Hydromorphone HCl (Dilaudid Rivet [employer] Gas 20mg/100ml) 20 mg IV PRN PRN; Protocol PRN Reason: Abdominal Pain Meropenem 500 mg/ Sodium (Chloride) 100 mls @ 200 mls/hr IV Q8H ZULLY Last Infusion: 09/26/18 05:00 Dose: Infused Propofol (Diprivan) 100 mls @ 4.355 mls/hr IV .[id number] ZULLY; Protocol Last Titration: 09/26/18 07:30 Dose: 25 mcg/kg/min, 10.886 mls/hr Dextrose/Sodium Chloride (D5ns) 1,000 mls @ 100 mls/hr IV .Q10H ZULLY Last Infusion: 09/26/18 07:33 Dose: 100 mls/hr Sodium Chloride (Normal Saline 0.9%) 1,000 mls @ 500 mls/hr IV .Q2H PRN PRN Reason: MAINTAIN MAP>65 Last Infusion: 09/26/18 05:00 Dose: Infused Norepinephrine Bitartrate 8 mg (/ Dextrose) 250 mls @ 15 mls/hr IV .[id number] ZULLY; Protocol Last Titration: 09/26/18 07:45 Dose: 25.5 mcg/min, 47.81 mls/hr Sodium Bicarbonate 150 meq/ (Dextrose) 1,150 mls @ 100 mls/hr IV .[id number] ZULLY Last Infusion: 09/26/18 07:00 Dose: 100 mls/hr Calcium Gluconate 2,000 mg/ (Sodium Chloride) 120 mls @ 480 mls/hr IV ONCE ONE; Protocol Stop: 09/26/18 09:08 Insulin Human Regular (Novolin R) 1 - 9 unit SUBQ Q6HR ZULLY; Protocol Last Admin: 09/26/18 05:47 Dose: 3 unit Lorazepam (Ativan Inj (Vial)) 0.5 mg IVP Q2H PRN PRN Reason: Anxiety Ondansetron HCl (Zofran Inj) 4 mg IVP Q6HR PRN PRN Reason: Nausea / Vomiting Pantoprazole Sodium (Protonix) 40 mg IVP BID [facility] Last Admin: 09/25/18 21:46 Dose: 40 mg Sodium Bicarbonate () 50 meq IVP ONCE ZULLY Stop: 09/28/18 00:31 Last Admin: 09/26/18 00:48 Dose: 50 meq Sodium Chloride (Normal Saline Flush 0.9%) 10 ml IVP 0100,0900,1700 ZULLY Last Admin: 09/25/18 21:46 Dose: 10 ml Sodium Chloride (Normal Saline Flush 0.9%) 10 ml IVP PRN PRN PRN Reason: NEEDED PER PROVIDER ORDERS Last Admin: 09/26/18 06:58 Dose: 30 ml Amlodipine Besylate [Norvasc] 10 mg PO DAILY 09/25/18 Canagliflozin [Invokana] 100 mg PO DAILY 09/25/18 Glipizide [Glucotrol] 10 mg PO DAILYWM 09/25/18 HYDROcod/ACETAM 5/325 [Nichols 5/325] 1 - 2 tab PO Q6H PRN 09/25/18 Metformin HCl [Glucophage] 1,000 mg PO BIDWM 09/25/18 Omeprazole 20 mg PO QDAC 09/25/18 Ondansetron Odt [Zofran Odt] 4 mg PO Q6H PRN 09/25/18 Objective - Vital Signs/Intake & Output Reviewed Vital Signs: Yes Vital Signs: Vital Signs Pulse Pulse Resp BP Pulse Ox 09/26/18 07:00 113 H 23 80/55 L 99 09/26/18 06:00 114 H 22 85/61 L 99 09/26/18 05:40 111 H 09/26/18 05:00 109 H 19 98/65 99 Intake & Output: Intake & Output 09/23/18 09/24/18 09/25/18 09/26/18 23:59 23:59 23:59 23:59 Intake Total 3405.676 3583.383 Output Total 206 310 Balance 3199.676 3273.383 - Objective General Appearance: positive: No acute distress, Other (5'2" , 86.5 kg [place] female, intubated, on propofol, dialudid [employer], using her abdominal muscles and acessory chest wall to breathe) Eyes Bilateral: positive: PERRL (pinpoint, reactive) Neck: negative: Stiff neck, Carotid bruit Respiratory: positive: Chest non-tender, Rales, Rhonchi, Other (Is on SIMV, rate of 20. Tidal volume 450. Pressure support 10, PEEP of 10 now reduced to 5. Pulmonary pressures 19-21). negative: Wheezes Cardiovascular: positive: Regular rate & rhythm, Tachycardia. negative: Gallop/S4, Friction rub Abdomen: positive: Other (Distended after surgery, no bowel sounds) Skin: positive: Other (Cool arms and legs to touch) Extremities: positive: Pedal edema (Anasarca) Neurologic/Psychiatric: positive: Other (Opens eyes to voice, has spontaneous for limb movement on her own and withdrawal to pain, not able to verbalize. [place] Coma Scale 8) - Lab Results Fish Bones: 09/26/18 04:00 09/26/18 16:03 Other Labs: Lab Results x24hrs 09/26/18 09/26/18 09/26/18 Range/Units 05:27 05:15 05:15 WBC (4.8-10.8) x10^3/uL RBC (4.20-5.40) 10^6/uL Hgb (12.0-16.0) g/dL Hct (37.0-47.0) % MCV (81.0-99.0) fL MCH (27.0-31.0) pg MCHC (32.0-36.0) g/dL RDW (12.0-15.0) % Plt Count (130-450) 10^3/uL MPV (7.9-10.8) fL Neut # (Auto) Lymph # (Auto) Shannon # (Auto) Eos # (Auto) Baso # (Auto) Absolute Nucleated RBC Total Counted Band Neuts % (Manual) (0 - 10) % Abnorm Lymph % (Manual) % Metamyelocytes % ( - 0) % Myelocytes % ( - 0) % Nucleated RBC % Neutrophils # (Manual) (1.5-6.6) 10^3/uL Lymphocytes # (Manual) (1.5-3.5) 10^3/uL Monocytes # (Manual) (0.0-1.0) 10^3/uL Eosinophils # (Manual) (0-0.7) 10^3/uL Basophils # (Manual) (0-0.1) 10^3/uL Differential Comment WBC Morphology (NORMAL) Platelet Estimate (NORMAL) Platelet Morphology (NORMAL) RBC Morph Micro Appear (NORMAL) Bld Gas Analysis Time Sample Site ABG pH (7.35-7.45) ABG pCO2 (34-45) mmHg ABG pO2 (80-100) mmHg ABG HCO3 (22.0-26.0) mmol/L ABG Total CO2 (21.0-29.0) MMOL/L ABG O2 Saturation (94-98) % ABG Base Excess (-2.0-3.0) mmol/L Karlo Test VBG pH 7.220 L (7.31-7.41) Ionized Calcium 0.90 L (1.15-1.33) mmol/L Respiration Rate b/min O2 Delivery Device Vent Mode FiO2 Tidal Volume mL PEEP cmH2O Pressure Support Vent cmH2O Sodium (135-145) mmol/L Potassium (3.5-5.0) mmol/L Chloride (101-111) mmol/L Carbon Dioxide (21-32) mmol/L Anion Gap (6-13) BUN (6-20) mg/dL Creatinine (0.4-1.0) mg/dL Estimated GFR (MDRD) (>89) Glucose (70-100) mg/dL POC Whole Bld Glucose 193 H (70 - 100) mg/dL Glycated Hemoglobin (4.6-6.2) % Estim Average Glucose (70-100) Lactic Acid (0.5-2.2) mmol/L Calcium (8.5-10.3) mg/dL Magnesium (1.7-2.8) mg/dL Total Bilirubin (0.2-1.0) mg/dL AST (10-42) IU/L ALT (10-60) IU/L Alkaline Phosphatase (42-121) IU/L Troponin I (<0.49) ng/mL B-Natriuretic Peptide (5-100) pg/mL Total Protein (6.7-8.2) g/dL Albumin (3.2-5.5) g/dL Globulin (2.1-4.2) g/dL Albumin/Globulin Ratio (1.0-2.2) Lipase (22-51) U/L PTH Intact 644 H (12-88) pg/mL Urine Color Urine Clarity (CLEAR) Urine pH (5.0-7.5) PH Ur Specific Sullivan (1.002-1.030) Urine Protein (NEGATIVE) mg/dL Urine Glucose (UA) (NEGATIVE) mg/dL Urine Ketones (NEGATIVE) mg/dL Urine Occult Blood (NEGATIVE) Urine Nitrite (NEGATIVE) Urine Bilirubin (NEGATIVE) Urine Urobilinogen (NORMAL) E.U./dL Ur Leukocyte Esterase (NEGATIVE) Urine RBC (0-5) /HPF Urine WBC (0-5) /HPF Ur Squamous Epith Cells (<= Few) Urine Bacteria (None Seen) /HPF Ur Microscopic Review Urine Culture Comments Nasal Screen MRSA (PCR) (NEGATIVE) Serum Ketones (NEGATIVE) 09/26/18 09/26/18 09/26/18 Range/Units 04:07 04:00 04:00 WBC (4.8-10.8) x10^3/uL RBC (4.20-5.40) 10^6/uL Hgb (12.0-16.0) g/dL Hct (37.0-47.0) % MCV (81.0-99.0) fL MCH (27.0-31.0) pg MCHC (32.0-36.0) g/dL RDW (12.0-15.0) % Plt Count (130-450) 10^3/uL MPV (7.9-10.8) fL Neut # (Auto) Lymph # (Auto) Shannon # (Auto) Eos # (Auto) Baso # (Auto) Absolute Nucleated RBC Total Counted Band Neuts % (Manual) (0 - 10) % Abnorm Lymph % (Manual) % Metamyelocytes % ( - 0) % Myelocytes % ( - 0) % Nucleated RBC % Neutrophils # (Manual) (1.5-6.6) 10^3/uL Lymphocytes # (Manual) (1.5-3.5) 10^3/uL Monocytes # (Manual) (0.0-1.0) 10^3/uL Eosinophils # (Manual) (0-0.7) 10^3/uL Basophils # (Manual) (0-0.1) 10^3/uL Differential Comment WBC Morphology (NORMAL) Platelet Estimate (NORMAL) Platelet Morphology (NORMAL) RBC Morph Micro Appear (NORMAL) Bld Gas Analysis Time 0415 Sample Site LEFT RADIAL ABG pH 7.24 L (7.35-7.45) ABG pCO2 41 (34-45) mmHg ABG pO2 98 (80-100) mmHg ABG HCO3 17.0 L (22.0-26.0) mmol/L ABG Total CO2 18.3 L (21.0-29.0) MMOL/L ABG O2 Saturation 97 (94-98) % ABG Base Excess -9.8 L (-2.0-3.0) mmol/L Karlo Test POSITIVE VBG pH (7.31-7.41) Ionized Calcium (1.15-1.33) mmol/L Respiration Rate 16 b/min O2 Delivery Device VENTILATOR Vent Mode SIMV FiO2 100.00 Tidal Volume 400 mL PEEP 8 cmH2O Pressure Support Vent 10 cmH2O Sodium (135-145) mmol/L Potassium (3.5-5.0) mmol/L Chloride (101-111) mmol/L Carbon Dioxide (21-32) mmol/L Anion Gap (6-13) BUN (6-20) mg/dL Creatinine (0.4-1.0) mg/dL Estimated GFR (MDRD) (>89) Glucose (70-100) mg/dL POC Whole Bld Glucose (70 - 100) mg/dL Glycated Hemoglobin (4.6-6.2) % Estim Average Glucose (70-100) Lactic Acid 3.0 H* (0.5-2.2) mmol/L Calcium (8.5-10.3) mg/dL Magnesium (1.7-2.8) mg/dL Total Bilirubin (0.2-1.0) mg/dL AST (10-42) IU/L ALT (10-60) IU/L Alkaline Phosphatase (42-121) IU/L Troponin I (<0.49) ng/mL B-Natriuretic Peptide 1149 H (5-100) pg/mL Total Protein (6.7-8.2) g/dL Albumin (3.2-5.5) g/dL Globulin (2.1-4.2) g/dL Albumin/Globulin Ratio (1.0-2.2) Lipase (22-51) U/L PTH Intact (12-88) pg/mL Urine Color Urine Clarity (CLEAR) Urine pH (5.0-7.5) PH Ur Specific Sullivan (1.002-1.030) Urine Protein (NEGATIVE) mg/dL Urine Glucose (UA) (NEGATIVE) mg/dL Urine Ketones (NEGATIVE) mg/dL Urine Occult Blood (NEGATIVE) Urine Nitrite (NEGATIVE) Urine Bilirubin (NEGATIVE) Urine Urobilinogen (NORMAL) E.U./dL Ur Leukocyte Esterase (NEGATIVE) Urine RBC (0-5) /HPF Urine WBC (0-5) /HPF Ur Squamous Epith Cells (<= Few) Urine Bacteria (None Seen) /HPF Ur Microscopic Review Urine Culture Comments Nasal Screen MRSA (PCR) (NEGATIVE) Serum Ketones (NEGATIVE) 09/26/18 09/26/18 09/26/18 Range/Units 04:00 04:00 00:00 WBC 2.9 L (4.8-10.8) x10^3/uL RBC 4.34 (4.20-5.40) 10^6/uL Hgb 13.1 (12.0-16.0) g/dL Hct 40.2 (37.0-47.0) % MCV 92.6 (81.0-99.0) fL MCH 30.2 (27.0-31.0) pg MCHC 32.6 (32.0-36.0) g/dL RDW 14.3 (12.0-15.0) % Plt Count 193 (130-450) 10^3/uL MPV 9.8 (7.9-10.8) fL Neut # (Auto) Not Reportable Lymph # (Auto) Not Reportable Shannon # (Auto) Not Reportable Eos # (Auto) Not Reportable Baso # (Auto) Not Reportable Absolute Nucleated RBC Not Reportable Total Counted 100 Band Neuts % (Manual) 28 H (0 - 10) % Abnorm Lymph % (Manual) 0 % Metamyelocytes % 3 H ( - 0) % Myelocytes % 1 H ( - 0) % Nucleated RBC % Not Reportable Neutrophils # (Manual) 1.7 (1.5-6.6) 10^3/uL Lymphocytes # (Manual) 0.9 L (1.5-3.5) 10^3/uL Monocytes # (Manual) 0.2 (0.0-1.0) 10^3/uL Eosinophils # (Manual) 0.0 (0-0.7) 10^3/uL Basophils # (Manual) 0.0 (0-0.1) 10^3/uL Differential Comment MANUAL DIFFERENTIAL WBC Morphology (NORMAL) Platelet Estimate NORMAL (130-450,000) (NORMAL) Platelet Morphology (NORMAL) RBC Morph Micro Appear NORMAL APPEARANCE (NORMAL) Bld Gas Analysis Time Sample Site ABG pH (7.35-7.45) ABG pCO2 (34-45) mmHg ABG pO2 (80-100) mmHg ABG HCO3 (22.0-26.0) mmol/L ABG Total CO2 (21.0-29.0) MMOL/L ABG O2 Saturation (94-98) % ABG Base Excess (-2.0-3.0) mmol/L Karlo Test VBG pH (7.31-7.41) Ionized Calcium (1.15-1.33) mmol/L Respiration Rate b/min O2 Delivery Device Vent Mode FiO2 Tidal Volume mL PEEP cmH2O Pressure Support Vent cmH2O Sodium 136 (135-145) mmol/L Potassium 4.8 (3.5-5.0) mmol/L Chloride 110 (101-111) mmol/L Carbon Dioxide 17 L (21-32) mmol/L Anion Gap 9.0 (6-13) BUN 38 H (6-20) mg/dL Creatinine 2.2 H (0.4-1.0) mg/dL Estimated GFR (MDRD) 22 L (>89) Glucose 239 H (70-100) mg/dL POC Whole Bld Glucose 227 H (70 - 100) mg/dL Glycated Hemoglobin (4.6-6.2) % Estim Average Glucose (70-100) Lactic Acid (0.5-2.2) mmol/L Calcium 6.1 L* (8.5-10.3) mg/dL Magnesium 2.4 (1.7-2.8) mg/dL Total Bilirubin 2.0 H (0.2-1.0) mg/dL AST 42 (10-42) IU/L ALT 25 (10-60) IU/L Alkaline Phosphatase 32 L (42-121) IU/L Troponin I (<0.49) ng/mL B-Natriuretic Peptide (5-100) pg/mL Total Protein 4.3 L (6.7-8.2) g/dL Albumin 2.0 L (3.2-5.5) g/dL Globulin 2.3 (2.1-4.2) g/dL Albumin/Globulin Ratio 0.9 L (1.0-2.2) Lipase (22-51) U/L PTH Intact (12-88) pg/mL Urine Color Urine Clarity (CLEAR) Urine pH (5.0-7.5) PH Ur Specific Sullivan (1.002-1.030) Urine Protein (NEGATIVE) mg/dL Urine Glucose (UA) (NEGATIVE) mg/dL Urine Ketones (NEGATIVE) mg/dL Urine Occult Blood (NEGATIVE) Urine Nitrite (NEGATIVE) Urine Bilirubin (NEGATIVE) Urine Urobilinogen (NORMAL) E.U./dL Ur Leukocyte Esterase (NEGATIVE) Urine RBC (0-5) /HPF Urine WBC (0-5) /HPF Ur Squamous Epith Cells (<= Few) Urine Bacteria (None Seen) /HPF Ur Microscopic Review Urine Culture Comments Nasal Screen MRSA (PCR) (NEGATIVE) Serum Ketones (NEGATIVE) 09/25/18 09/25/18 09/25/18 Range/Units Unknown 23:00 22:15 WBC (4.8-10.8) x10^3/uL RBC (4.20-5.40) 10^6/uL Hgb (12.0-16.0) g/dL Hct (37.0-47.0) % MCV (81.0-99.0) fL MCH (27.0-31.0) pg MCHC (32.0-36.0) g/dL RDW (12.0-15.0) % Plt Count (130-450) 10^3/uL MPV (7.9-10.8) fL Neut # (Auto) Lymph # (Auto) Shannon # (Auto) Eos # (Auto) Baso # (Auto) Absolute Nucleated RBC Total Counted Band Neuts % (Manual) (0 - 10) % Abnorm Lymph % (Manual) % Metamyelocytes % ( - 0) % Myelocytes % ( - 0) % Nucleated RBC % Neutrophils # (Manual) (1.5-6.6) 10^3/uL Lymphocytes # (Manual) (1.5-3.5) 10^3/uL Monocytes # (Manual) (0.0-1.0) 10^3/uL Eosinophils # (Manual) (0-0.7) 10^3/uL Basophils # (Manual) (0-0.1) 10^3/uL Differential Comment WBC Morphology (NORMAL) Platelet Estimate (NORMAL) Platelet Morphology (NORMAL) RBC Morph Micro Appear (NORMAL) Bld Gas Analysis Time 2307 2223 Sample Site LEFT RADIAL LEFT RADIAL ABG pH 7.22 L 7.23 L (7.35-7.45) ABG pCO2 43 40 (34-45) mmHg ABG pO2 69 L 61 L (80-100) mmHg ABG HCO3 17.0 L 16.7 L (22.0-26.0) mmol/L ABG Total CO2 18.3 L 17.9 L (21.0-29.0) MMOL/L ABG O2 Saturation 93 L 91 L (94-98) % ABG Base Excess -10.4 L -10.3 L (-2.0-3.0) mmol/L Karlo Test POSITIVE POSITIVE VBG pH (7.31-7.41) Ionized Calcium (1.15-1.33) mmol/L Respiration Rate 16 20 b/min O2 Delivery Device VENTILATOR VENTILATOR Vent Mode SIMV SIMV FiO2 100.00 80.00 Tidal Volume 400 400 mL PEEP 5 5 cmH2O Pressure Support Vent 10 10 cmH2O Sodium (135-145) mmol/L Potassium (3.5-5.0) mmol/L Chloride (101-111) mmol/L Carbon Dioxide (21-32) mmol/L Anion Gap (6-13) BUN (6-20) mg/dL Creatinine (0.4-1.0) mg/dL Estimated GFR (MDRD) (>89) Glucose (70-100) mg/dL POC Whole Bld Glucose (70 - 100) mg/dL Glycated Hemoglobin (4.6-6.2) % Estim Average Glucose (70-100) Lactic Acid (0.5-2.2) mmol/L Calcium (8.5-10.3) mg/dL Magnesium (1.7-2.8) mg/dL Total Bilirubin (0.2-1.0) mg/dL AST (10-42) IU/L ALT (10-60) IU/L Alkaline Phosphatase (42-121) IU/L Troponin I (<0.49) ng/mL B-Natriuretic Peptide (5-100) pg/mL Total Protein (6.7-8.2) g/dL Albumin (3.2-5.5) g/dL Globulin (2.1-4.2) g/dL Albumin/Globulin Ratio (1.0-2.2) Lipase (22-51) U/L PTH Intact (12-88) pg/mL Urine Color LT. YELLOW Urine Clarity SL. CLOUDY (CLEAR) Urine pH 5.5 (5.0-7.5) PH Ur Specific Sullivan 1.025 (1.002-1.030) Urine Protein 30 H (NEGATIVE) mg/dL Urine Glucose (UA) 100 H (NEGATIVE) mg/dL Urine Ketones 15 H (NEGATIVE) mg/dL Urine Occult Blood MODERATE H (NEGATIVE) Urine Nitrite POSITIVE H (NEGATIVE) Urine Bilirubin NEGATIVE (NEGATIVE) Urine Urobilinogen 0.2 (NORMAL) (NORMAL) E.U./dL Ur Leukocyte Esterase SMALL H (NEGATIVE) Urine RBC 0-5 (0-5) /HPF Urine WBC 4-5 (0-5) /HPF Ur Squamous Epith Cells RARE Squamous (<= Few) Urine Bacteria Many H (None Seen) /HPF Ur Microscopic Review INDICATED Urine Culture Comments INDICATED Nasal Screen MRSA (PCR) (NEGATIVE) Serum Ketones (NEGATIVE) 09/25/18 09/25/18 09/25/18 Range/Units 21:05 20:43 20:25 WBC (4.8-10.8) x10^3/uL RBC (4.20-5.40) 10^6/uL Hgb (12.0-16.0) g/dL Hct (37.0-47.0) % MCV (81.0-99.0) fL MCH (27.0-31.0) pg MCHC (32.0-36.0) g/dL RDW (12.0-15.0) % Plt Count (130-450) 10^3/uL MPV (7.9-10.8) fL Neut # (Auto) Lymph # (Auto) Shannon # (Auto) Eos # (Auto) Baso # (Auto) Absolute Nucleated RBC Total Counted Band Neuts % (Manual) (0 - 10) % Abnorm Lymph % (Manual) % Metamyelocytes % ( - 0) % Myelocytes % ( - 0) % Nucleated RBC % Neutrophils # (Manual) (1.5-6.6) 10^3/uL Lymphocytes # (Manual) (1.5-3.5) 10^3/uL Monocytes # (Manual) (0.0-1.0) 10^3/uL Eosinophils # (Manual) (0-0.7) 10^3/uL Basophils # (Manual) (0-0.1) 10^3/uL Differential Comment WBC Morphology (NORMAL) Platelet Estimate (NORMAL) Platelet Morphology (NORMAL) RBC Morph Micro Appear (NORMAL) Bld Gas Analysis Time Sample Site ABG pH (7.35-7.45) ABG pCO2 (34-45) mmHg ABG pO2 (80-100) mmHg ABG HCO3 (22.0-26.0) mmol/L ABG Total CO2 (21.0-29.0) MMOL/L ABG O2 Saturation (94-98) % ABG Base Excess (-2.0-3.0) mmol/L Karlo Test VBG pH 7.166 L (7.31-7.41) Ionized Calcium 0.94 L (1.15-1.33) mmol/L Respiration Rate b/min O2 Delivery Device Vent Mode FiO2 Tidal Volume mL PEEP cmH2O Pressure Support Vent cmH2O Sodium (135-145) mmol/L Potassium (3.5-5.0) mmol/L Chloride (101-111) mmol/L Carbon Dioxide (21-32) mmol/L Anion Gap (6-13) BUN (6-20) mg/dL Creatinine (0.4-1.0) mg/dL Estimated GFR (MDRD) (>89) Glucose (70-100) mg/dL POC Whole Bld Glucose 183 H (70 - 100) mg/dL Glycated Hemoglobin (4.6-6.2) % Estim Average Glucose (70-100) Lactic Acid (0.5-2.2) mmol/L Calcium (8.5-10.3) mg/dL Magnesium (1.7-2.8) mg/dL Total Bilirubin (0.2-1.0) mg/dL AST (10-42) IU/L ALT (10-60) IU/L Alkaline Phosphatase (42-121) IU/L Troponin I (<0.49) ng/mL B-Natriuretic Peptide (5-100) pg/mL Total Protein (6.7-8.2) g/dL Albumin (3.2-5.5) g/dL Globulin (2.1-4.2) g/dL Albumin/Globulin Ratio (1.0-2.2) Lipase (22-51) U/L PTH Intact (12-88) pg/mL Urine Color Urine Clarity (CLEAR) Urine pH (5.0-7.5) PH Ur Specific Sullivan (1.002-1.030) Urine Protein (NEGATIVE) mg/dL Urine Glucose (UA) (NEGATIVE) mg/dL Urine Ketones (NEGATIVE) mg/dL Urine Occult Blood (NEGATIVE) Urine Nitrite (NEGATIVE) Urine Bilirubin (NEGATIVE) Urine Urobilinogen (NORMAL) E.U./dL Ur Leukocyte Esterase (NEGATIVE) Urine RBC (0-5) /HPF Urine WBC (0-5) /HPF Ur Squamous Epith Cells (<= Few) Urine Bacteria (None Seen) /HPF Ur Microscopic Review Urine Culture Comments Nasal Screen MRSA (PCR) (NEGATIVE) Serum Ketones NEGATIVE (NEGATIVE) 09/25/18 09/25/18 09/25/18 Range/Units 20:25 20:25 20:17 WBC (4.8-10.8) x10^3/uL RBC (4.20-5.40) 10^6/uL Hgb (12.0-16.0) g/dL Hct (37.0-47.0) % MCV (81.0-99.0) fL MCH (27.0-31.0) pg MCHC (32.0-36.0) g/dL RDW (12.0-15.0) % Plt Count (130-450) 10^3/uL MPV (7.9-10.8) fL Neut # (Auto) Lymph # (Auto) Shannon # (Auto) Eos # (Auto) Baso # (Auto) Absolute Nucleated RBC Total Counted Band Neuts % (Manual) (0 - 10) % Abnorm Lymph % (Manual) % Metamyelocytes % ( - 0) % Myelocytes % ( - 0) % Nucleated RBC % Neutrophils # (Manual) (1.5-6.6) 10^3/uL Lymphocytes # (Manual) (1.5-3.5) 10^3/uL Monocytes # (Manual) (0.0-1.0) 10^3/uL Eosinophils # (Manual) (0-0.7) 10^3/uL Basophils # (Manual) (0-0.1) 10^3/uL Differential Comment WBC Morphology (NORMAL) Platelet Estimate (NORMAL) Platelet Morphology (NORMAL) RBC Morph Micro Appear (NORMAL) Bld Gas Analysis Time Sample Site ABG pH (7.35-7.45) ABG pCO2 (34-45) mmHg ABG pO2 (80-100) mmHg ABG HCO3 (22.0-26.0) mmol/L ABG Total CO2 (21.0-29.0) MMOL/L ABG O2 Saturation (94-98) % ABG Base Excess (-2.0-3.0) mmol/L Karlo Test VBG pH (7.31-7.41) Ionized Calcium (1.15-1.33) mmol/L Respiration Rate b/min O2 Delivery Device Vent Mode FiO2 Tidal Volume mL PEEP cmH2O Pressure Support Vent cmH2O Sodium (135-145) mmol/L Potassium (3.5-5.0) mmol/L Chloride (101-111) mmol/L Carbon Dioxide (21-32) mmol/L Anion Gap (6-13) BUN (6-20) mg/dL Creatinine (0.4-1.0) mg/dL Estimated GFR (MDRD) (>89) Glucose (70-100) mg/dL POC Whole Bld Glucose (70 - 100) mg/dL Glycated Hemoglobin 7.3 H (4.6-6.2) % Estim Average Glucose 163 H (70-100) Lactic Acid 2.4 H (0.5-2.2) mmol/L Calcium (8.5-10.3) mg/dL Magnesium (1.7-2.8) mg/dL Total Bilirubin (0.2-1.0) mg/dL AST (10-42) IU/L ALT (10-60) IU/L Alkaline Phosphatase (42-121) IU/L Troponin I (<0.49) ng/mL B-Natriuretic Peptide (5-100) pg/mL Total Protein (6.7-8.2) g/dL Albumin (3.2-5.5) g/dL Globulin (2.1-4.2) g/dL Albumin/Globulin Ratio (1.0-2.2) Lipase (22-51) U/L PTH Intact (12-88) pg/mL Urine Color Urine Clarity (CLEAR) Urine pH (5.0-7.5) PH Ur Specific Sullivan (1.002-1.030) Urine Protein (NEGATIVE) mg/dL Urine Glucose (UA) (NEGATIVE) mg/dL Urine Ketones (NEGATIVE) mg/dL Urine Occult Blood (NEGATIVE) Urine Nitrite (NEGATIVE) Urine Bilirubin (NEGATIVE) Urine Urobilinogen (NORMAL) E.U./dL Ur Leukocyte Esterase (NEGATIVE) Urine RBC (0-5) /HPF Urine WBC (0-5) /HPF Ur Squamous Epith Cells (<= Few) Urine Bacteria (None Seen) /HPF Ur Microscopic Review Urine Culture Comments Nasal Screen MRSA (PCR) NEGATIVE (NEGATIVE) Serum Ketones (NEGATIVE) 09/25/18 09/25/18 09/25/18 Range/Units 14:58 14:37 14:37 WBC (4.8-10.8) x10^3/uL RBC (4.20-5.40) 10^6/uL Hgb (12.0-16.0) g/dL Hct (37.0-47.0) % MCV (81.0-99.0) fL MCH (27.0-31.0) pg MCHC (32.0-36.0) g/dL RDW (12.0-15.0) % Plt Count (130-450) 10^3/uL MPV (7.9-10.8) fL Neut # (Auto) Lymph # (Auto) Shannon # (Auto) Eos # (Auto) Baso # (Auto) Absolute Nucleated RBC Total Counted Band Neuts % (Manual) (0 - 10) % Abnorm Lymph % (Manual) % Metamyelocytes % ( - 0) % Myelocytes % ( - 0) % Nucleated RBC % Neutrophils # (Manual) (1.5-6.6) 10^3/uL Lymphocytes # (Manual) (1.5-3.5) 10^3/uL Monocytes # (Manual) (0.0-1.0) 10^3/uL Eosinophils # (Manual) (0-0.7) 10^3/uL Basophils # (Manual) (0-0.1) 10^3/uL Differential Comment WBC Morphology (NORMAL) Platelet Estimate (NORMAL) Platelet Morphology (NORMAL) RBC Morph Micro Appear (NORMAL) Bld Gas Analysis Time Sample Site ABG pH (7.35-7.45) ABG pCO2 (34-45) mmHg ABG pO2 (80-100) mmHg ABG HCO3 (22.0-26.0) mmol/L ABG Total CO2 (21.0-29.0) MMOL/L ABG O2 Saturation (94-98) % ABG Base Excess (-2.0-3.0) mmol/L Karlo Test VBG pH (7.31-7.41) Ionized Calcium (1.15-1.33) mmol/L Respiration Rate b/min O2 Delivery Device Vent Mode FiO2 Tidal Volume mL PEEP cmH2O Pressure Support Vent cmH2O Sodium 130 L (135-145) mmol/L Potassium 4.2 (3.5-5.0) mmol/L Chloride 94 L (101-111) mmol/L Carbon Dioxide 19 L (21-32) mmol/L Anion Gap 17.0 H (6-13) BUN 38 H (6-20) mg/dL Creatinine 3.4 H (0.4-1.0) mg/dL Estimated GFR (MDRD) 13 L (>89) Glucose 269 H (70-100) mg/dL POC Whole Bld Glucose (70 - 100) mg/dL Glycated Hemoglobin (4.6-6.2) % Estim Average Glucose (70-100) Lactic Acid 4.4 H* (0.5-2.2) mmol/L Calcium 7.6 L (8.5-10.3) mg/dL Magnesium (1.7-2.8) mg/dL Total Bilirubin 2.8 H (0.2-1.0) mg/dL AST 29 (10-42) IU/L ALT 16 (10-60) IU/L Alkaline Phosphatase 37 L (42-121) IU/L Troponin I < 0.04 (<0.49) ng/mL B-Natriuretic Peptide (5-100) pg/mL Total Protein 6.5 L (6.7-8.2) g/dL Albumin 3.4 (3.2-5.5) g/dL Globulin 3.1 (2.1-4.2) g/dL Albumin/Globulin Ratio 1.1 (1.0-2.2) Lipase 384 H (22-51) U/L PTH Intact (12-88) pg/mL Urine Color Urine Clarity (CLEAR) Urine pH (5.0-7.5) PH Ur Specific Sullivan (1.002-1.030) Urine Protein (NEGATIVE) mg/dL Urine Glucose (UA) (NEGATIVE) mg/dL Urine Ketones (NEGATIVE) mg/dL Urine Occult Blood (NEGATIVE) Urine Nitrite (NEGATIVE) Urine Bilirubin (NEGATIVE) Urine Urobilinogen (NORMAL) E.U./dL Ur Leukocyte Esterase (NEGATIVE) Urine RBC (0-5) /HPF Urine WBC (0-5) /HPF Ur Squamous Epith Cells (<= Few) Urine Bacteria (None Seen) /HPF Ur Microscopic Review Urine Culture Comments Nasal Screen MRSA (PCR) (NEGATIVE) Serum Ketones (NEGATIVE) 09/25/18 Range/Units 14:37 WBC 2.9 L (4.8-10.8) x10^3/uL RBC 5.15 (4.20-5.40) 10^6/uL Hgb 15.2 (12.0-16.0) g/dL Hct 47.5 H (37.0-47.0) % MCV 92.2 (81.0-99.0) fL MCH 29.5 (27.0-31.0) pg MCHC 32.0 (32.0-36.0) g/dL RDW 13.8 (12.0-15.0) % Plt Count 236 (130-450) 10^3/uL MPV 9.3 (7.9-10.8) fL Neut # (Auto) Not Reportable Lymph # (Auto) Not Reportable Shannon # (Auto) Not Reportable Eos # (Auto) Not Reportable Baso # (Auto) Not Reportable Absolute Nucleated RBC Not Reportable Total Counted 100 Band Neuts % (Manual) 14 H (0 - 10) % Abnorm Lymph % (Manual) 0 % Metamyelocytes % 5 H ( - 0) % Myelocytes % 3 H ( - 0) % Nucleated RBC % Not Reportable Neutrophils # (Manual) 1.2 L (1.5-6.6) 10^3/uL Lymphocytes # (Manual) 1.2 L (1.5-3.5) 10^3/uL Monocytes # (Manual) 0.2 (0.0-1.0) 10^3/uL Eosinophils # (Manual) 0.0 (0-0.7) 10^3/uL Basophils # (Manual) 0.0 (0-0.1) 10^3/uL Differential Comment MANUAL DIFFERENTIAL WBC Morphology 1+ SMUDGE CELLS (NORMAL) Platelet Estimate NORMAL (130-450,000) (NORMAL) Platelet Morphology RARE GIANT PLATELETS (NORMAL) RBC Morph Micro Appear NORMAL APPEARANCE (NORMAL) Bld Gas Analysis Time Sample Site ABG pH (7.35-7.45) ABG pCO2 (34-45) mmHg ABG pO2 (80-100) mmHg ABG HCO3 (22.0-26.0) mmol/L ABG Total CO2 (21.0-29.0) MMOL/L ABG O2 Saturation (94-98) % ABG Base Excess (-2.0-3.0) mmol/L Karlo Test VBG pH (7.31-7.41) Ionized Calcium (1.15-1.33) mmol/L Respiration Rate b/min O2 Delivery Device Vent Mode FiO2 Tidal Volume mL PEEP cmH2O Pressure Support Vent cmH2O Sodium (135-145) mmol/L Potassium (3.5-5.0) mmol/L Chloride (101-111) mmol/L Carbon Dioxide (21-32) mmol/L Anion Gap (6-13) BUN (6-20) mg/dL Creatinine (0.4-1.0) mg/dL Estimated GFR (MDRD) (>89) Glucose (70-100) mg/dL POC Whole Bld Glucose (70 - 100) mg/dL Glycated Hemoglobin (4.6-6.2) % Estim Average Glucose (70-100) Lactic Acid (0.5-2.2) mmol/L Calcium (8.5-10.3) mg/dL Magnesium (1.7-2.8) mg/dL Total Bilirubin (0.2-1.0) mg/dL AST (10-42) IU/L ALT (10-60) IU/L Alkaline Phosphatase (42-121) IU/L Troponin I (<0.49) ng/mL B-Natriuretic Peptide (5-100) pg/mL Total Protein (6.7-8.2) g/dL Albumin (3.2-5.5) g/dL Globulin (2.1-4.2) g/dL Albumin/Globulin Ratio (1.0-2.2) Lipase (22-51) U/L PTH Intact (12-88) pg/mL Urine Color Urine Clarity (CLEAR) Urine pH (5.0-7.5) PH Ur Specific Sullivan (1.002-1.030) Urine Protein (NEGATIVE) mg/dL Urine Glucose (UA) (NEGATIVE) mg/dL Urine Ketones (NEGATIVE) mg/dL Urine Occult Blood (NEGATIVE) Urine Nitrite (NEGATIVE) Urine Bilirubin (NEGATIVE) Urine Urobilinogen (NORMAL) E.U./dL Ur Leukocyte Esterase (NEGATIVE) Urine RBC (0-5) /HPF Urine WBC (0-5) /HPF Ur Squamous Epith Cells (<= Few) Urine Bacteria (None Seen) /HPF Ur Microscopic Review Urine Culture Comments Nasal Screen MRSA (PCR) (NEGATIVE) Serum Ketones (NEGATIVE) Sepsis Event Note (H) - Evaluation Current Stage of Sepsis: Septic shock Possible source of Sepsis: positive: GI tract/intra-abdominal - Sepsis Criteria Sepsis Criteria: Recorded Heart Rate greater than 90 bpm, Recorded Respiratory Rate greater than 20, WBC count greater than 12,000 or less than 4000, MAP less than 65 mmHg, Metabolic: lactate > 2 mmol/L, Hepatic: Bilirubin greater than 2mg/dl Assessment/Plan - Problem List (1) Septic shock Impression: hypotension, acute kidney failure, oliguria> requiring pressors. Source of shock is perforated viscus on 09/25 of several hours duration before having to go to the OR. Plan: I have consulted with [facility] air grinder service. They would like us to reduce her propofol to help with the hypotension. They would also like us to add vasopressin to her Levophed Continue antibiotics but broaden them to antifungal coverage (2) Acute respiratory failure with hypoxemia Impression: Vent settings and pressure settings reviewed. Again, he would like us to broaden her antibiotics to include antifungal therapy. He would like us to switch her to assist control or volume control. In the morning try a pressure support PEEP trial and try extubation. (3) Gastric ulcer with perforation Impression: Present on admission. Patient presented with 1 day of abdominal pain. Seen in outside facility where ultrasound was negative. Sent home. Return to our emergency room and identified as having an acute abdomen. Taken emergently to the operating room with a repair of a Venkat patch. Purulent material found in belly with washout. Plan: Protein pump inhibitor to continue at 40 mg twice daily Protonix Postoperative surgical management per surgery Because of site of perforation, air grinder recommends addition of caspofungin in addition to meropenem. He also recommends adding vancomycin. That will be done. Qualifiers: Gastric ulcer chronicity: acute Qualified Code(s): K25.1 - Acute gastric ulcer with perforation (4) Type 2 diabetes mellitus with hyperglycemia, without long-term current use of insulin Impression: Glucose September 25: 183 Today 227, 193, 287 Plan:On sliding scale Novolin R. Will add 5 of Lantus at night to make sure glucose stays close to below 150 as possible. (5) Lactic acidosis Impression: Due to sepsis. Patient is also on metformin. This may be contributing to her metabolic derangement. Lactic acid 3 this morning. She has been placed on a bicarb drip. Plan: Trending lactic levels (6) Hypocalcemia Impression: still low at 16:00. Will give more calcium gluconate (7) Oliguria Impression: due to renal failure from sepsis and organ failure. Creatine has improved. Will continue to follow. Right now expect large amoutns of 3rd spacing from the fluid boluses and the IVF we are giving to her.
--- NOTE | 2018-09-26 08:16 | ANESTHESIA PROCEDURE NOTE ---
Anesth Central Line Template - Central Line Central Line Preparation: Consent Obtained, Time out completed, Ultrasound used, Sterile prep and drape Central line location: Right IJ Central line type: Triple lumen Central line catheter tip site resides: Cavoatrial junction Central line aftercare: Chlorhexidine disc placed, Secured, Placement confirmed, No pneumothorax, No complications, Pt tolerated well Other Info/Details: Procedure note from 09/25/18 [id number]: Called to ED for placement of central line for septic patient with visceral perforation. Informed consent obtained. Patient was placed in trendelenburg and right neck was prepped with chlorohexadine. Timeout completed. Sterile gown, gloves and mask were utilized. Patient was draped with full body drape. 1% lidocaine was used to localize the skin. A 17G needle was used to access the right IJ under ultrasound guidance. The wire was advanced with ease, dilated and a triple lumen catheter was placed over the wire. The wire was removed. Line was sutured in place and chest xray obtained. Patient tolerated the procedure and remains in critical condition.
[2018-09-26] MEDS ORDERED: CALCIUM GLUCONATE 2,000 MG in SODIUM CHLORIDE 0.9% 100ML 100 ML IV ONE ×5 (08:54→22:32)
[2018-09-26] MEDS: DEXTROSE 5%-0.9% NACL 1,000 ML IV SCH ×2 (09:16→23:24)
[2018-09-26] MEDS: ENOXAPARIN 30 MG/0.3 ML SYRINGE SUBQ SCH (09:39)
[2018-09-26] MEDS: PANTOPRAZOLE 40 MG VIAL IVP SCH ×2 (09:40→20:53)
--- NOTE | 2018-09-26 09:40 | XRAY Report ---
Reason: ARDS with septic shock Procedure Date: 09/26/2018 Accession Number: [id number] / [id number] Procedure: XR - Chest 1 View X-Ray CPT Code: 67489 FULL RESULT: EXAM: CHEST RADIOGRAPHY EXAM DATE: 09/26/2018 08:25 AM. CLINICAL HISTORY: ARDS with septic shock. COMPARISON: CHEST FOR LINE PLACEMENT 09/25/2018 8:27 PM. TECHNIQUE: 1 view. FINDINGS: Lungs/Pleura: Increasing dense opacification of the left lower hemithorax presumably due to a combination of pleural effusion and consolidation. Linear density in the mid right lung likely represents a combination of subsegmental atelectasis and a small quantity of fluid in the fissure. Hazy opacification at the right lung base is felt to represent a combination of volume loss and pleural fluid given elevation of the diaphragm. Mediastinum: Apparent cardiomegaly, exacerbated by AP portable technique. Mild calcifications of the aortic arch with apparent leftward shift of the mediastinum felt to be at least partially due to rotation. Other: A right IJ approach central venous catheter with its tip in the region of the superior cavoatrial junction based on AP projection. Enteric tube is with sidehole and tip below the diaphragm, appropriate position. Endotracheal tube is below the thoracic inlet and above the jude by approximately 3.7 cm, appropriate position. IMPRESSION: Interval increase in pleural effusions. Interval volume loss with suggestion of potential component of atelectasis, possibly low tidal volume strategy. RADIA
--- NOTE | 2018-09-26 10:01 | PROVIDER PROGRESS NOTE ---
Subjective - Prog Note Date Prog Note Date: 09/26/18 Prog Note Time: 09:56 - Subjective Subjective: POD 1: Patient still ventilated (SIMV, 100% O2), acidotic, requiring pressors and aggressive fluid management to maintain BP. Urine output adequate per ICU nurse. Survived surgery which required IV levophed and boluses of phenylephrine and vasopressin. Now being assessed for possible ARDS.Hospitalists managing patient closely. Will continue to follow and provide input if asked. Objective - Vital Signs/Intake & Output Vital Signs: Vital Signs x48h Temp Pulse Pulse Resp BP Pulse Ox 09/26/18 09:00 111 H 21 103/70 99 09/26/18 08:22 113 H 09/26/18 08:00 36.7 C 114 H 18 90/75 100 09/26/18 07:00 113 H 23 80/55 L 99 09/26/18 06:00 114 H 22 85/61 L 99 09/26/18 05:40 111 H 09/26/18 05:00 109 H 19 98/65 99 09/26/18 04:00 36.8 C 105 H 19 96/64 99 09/26/18 03:30 105 H 09/26/18 03:00 101 H 21 86/64 L 100 09/26/18 02:00 105 H 21 87/63 L 98 Intake & Output: Intake & Output 09/23/18 09/24/18 09/25/18 09/26/18 23:59 23:59 23:59 23:59 Intake Total 3405.676 3696.749 Output Total 206 365 Balance 3199.676 3331.749 - Lab Results Fish Bones: 09/26/18 04:00 09/26/18 04:00 Other Labs: Lab Results x24hrs 09/26/18 09/26/18 09/26/18 Range/Units 05:27 05:15 05:15 WBC (4.8-10.8) x10^3/uL RBC (4.20-5.40) 10^6/uL Hgb (12.0-16.0) g/dL Hct (37.0-47.0) % MCV (81.0-99.0) fL MCH (27.0-31.0) pg MCHC (32.0-36.0) g/dL RDW (12.0-15.0) % Plt Count (130-450) 10^3/uL MPV (7.9-10.8) fL Neut # (Auto) Lymph # (Auto) Merrick # (Auto) Eos # (Auto) Baso # (Auto) Absolute Nucleated RBC Total Counted Band Neuts % (Manual) (0 - 10) % Abnorm Lymph % (Manual) % Metamyelocytes % ( - 0) % Myelocytes % ( - 0) % Nucleated RBC % Neutrophils # (Manual) (1.5-6.6) 10^3/uL Lymphocytes # (Manual) (1.5-3.5) 10^3/uL Monocytes # (Manual) (0.0-1.0) 10^3/uL Eosinophils # (Manual) (0-0.7) 10^3/uL Basophils # (Manual) (0-0.1) 10^3/uL Differential Comment WBC Morphology (NORMAL) Platelet Estimate (NORMAL) Platelet Morphology (NORMAL) RBC Morph Micro Appear (NORMAL) Bld Gas Analysis Time Sample Site ABG pH (7.35-7.45) ABG pCO2 (34-45) mmHg ABG pO2 (80-100) mmHg ABG HCO3 (22.0-26.0) mmol/L ABG Total CO2 (21.0-29.0) MMOL/L ABG O2 Saturation (94-98) % ABG Base Excess (-2.0-3.0) mmol/L Karol Test VBG pH 7.220 L (7.31-7.41) Ionized Calcium 0.90 L (1.15-1.33) mmol/L Respiration Rate b/min O2 Delivery Device Vent Mode FiO2 Tidal Volume mL PEEP cmH2O Pressure Support Vent cmH2O Sodium (135-145) mmol/L Potassium (3.5-5.0) mmol/L Chloride (101-111) mmol/L Carbon Dioxide (21-32) mmol/L Anion Gap (6-13) BUN (6-20) mg/dL Creatinine (0.4-1.0) mg/dL Estimated GFR (MDRD) (>89) Glucose (70-100) mg/dL POC Whole Bld Glucose 193 H (70 - 100) mg/dL Glycated Hemoglobin (4.6-6.2) % Estim Average Glucose (70-100) Lactic Acid (0.5-2.2) mmol/L Calcium (8.5-10.3) mg/dL Magnesium (1.7-2.8) mg/dL Total Bilirubin (0.2-1.0) mg/dL AST (10-42) IU/L ALT (10-60) IU/L Alkaline Phosphatase (42-121) IU/L Troponin I (<0.49) ng/mL B-Natriuretic Peptide (5-100) pg/mL Total Protein (6.7-8.2) g/dL Albumin (3.2-5.5) g/dL Globulin (2.1-4.2) g/dL Albumin/Globulin Ratio (1.0-2.2) Lipase (22-51) U/L PTH Intact 644 H (12-88) pg/mL Urine Color Urine Clarity (CLEAR) Urine pH (5.0-7.5) PH Ur Specific [place] (1.002-1.030) Urine Protein (NEGATIVE) mg/dL Urine Glucose (UA) (NEGATIVE) mg/dL Urine Ketones (NEGATIVE) mg/dL Urine Occult Blood (NEGATIVE) Urine Nitrite (NEGATIVE) Urine Bilirubin (NEGATIVE) Urine Urobilinogen (NORMAL) E.U./dL Ur Leukocyte Esterase (NEGATIVE) Urine RBC (0-5) /HPF Urine WBC (0-5) /HPF Ur Squamous Epith Cells (<= Few) Urine Bacteria (None Seen) /HPF Ur Microscopic Review Urine Culture Comments Nasal Screen MRSA (PCR) (NEGATIVE) Serum Ketones (NEGATIVE) 09/26/18 09/26/18 09/26/18 Range/Units 04:07 04:00 04:00 WBC (4.8-10.8) x10^3/uL RBC (4.20-5.40) 10^6/uL Hgb (12.0-16.0) g/dL Hct (37.0-47.0) % MCV (81.0-99.0) fL MCH (27.0-31.0) pg MCHC (32.0-36.0) g/dL RDW (12.0-15.0) % Plt Count (130-450) 10^3/uL MPV (7.9-10.8) fL Neut # (Auto) Lymph # (Auto) Merrick # (Auto) Eos # (Auto) Baso # (Auto) Absolute Nucleated RBC Total Counted Band Neuts % (Manual) (0 - 10) % Abnorm Lymph % (Manual) % Metamyelocytes % ( - 0) % Myelocytes % ( - 0) % Nucleated RBC % Neutrophils # (Manual) (1.5-6.6) 10^3/uL Lymphocytes # (Manual) (1.5-3.5) 10^3/uL Monocytes # (Manual) (0.0-1.0) 10^3/uL Eosinophils # (Manual) (0-0.7) 10^3/uL Basophils # (Manual) (0-0.1) 10^3/uL Differential Comment WBC Morphology (NORMAL) Platelet Estimate (NORMAL) Platelet Morphology (NORMAL) RBC Morph Micro Appear (NORMAL) Bld Gas Analysis Time 0415 Sample Site LEFT RADIAL ABG pH 7.24 L (7.35-7.45) ABG pCO2 41 (34-45) mmHg ABG pO2 98 (80-100) mmHg ABG HCO3 17.0 L (22.0-26.0) mmol/L ABG Total CO2 18.3 L (21.0-29.0) MMOL/L ABG O2 Saturation 97 (94-98) % ABG Base Excess -9.8 L (-2.0-3.0) mmol/L Karlo Test POSITIVE VBG pH (7.31-7.41) Ionized Calcium (1.15-1.33) mmol/L Respiration Rate 16 b/min O2 Delivery Device VENTILATOR Vent Mode SIMV FiO2 100.00 Tidal Volume 400 mL PEEP 8 cmH2O Pressure Support Vent 10 cmH2O Sodium (135-145) mmol/L Potassium (3.5-5.0) mmol/L Chloride (101-111) mmol/L Carbon Dioxide (21-32) mmol/L Anion Gap (6-13) BUN (6-20) mg/dL Creatinine (0.4-1.0) mg/dL Estimated GFR (MDRD) (>89) Glucose (70-100) mg/dL POC Whole Bld Glucose (70 - 100) mg/dL Glycated Hemoglobin (4.6-6.2) % Estim Average Glucose (70-100) Lactic Acid 3.0 H* (0.5-2.2) mmol/L Calcium (8.5-10.3) mg/dL Magnesium (1.7-2.8) mg/dL Total Bilirubin (0.2-1.0) mg/dL AST (10-42) IU/L ALT (10-60) IU/L Alkaline Phosphatase (42-121) IU/L Troponin I (<0.49) ng/mL B-Natriuretic Peptide 1149 H (5-100) pg/mL Total Protein (6.7-8.2) g/dL Albumin (3.2-5.5) g/dL Globulin (2.1-4.2) g/dL Albumin/Globulin Ratio (1.0-2.2) Lipase (22-51) U/L PTH Intact (12-88) pg/mL Urine Color Urine Clarity (CLEAR) Urine pH (5.0-7.5) PH Ur Specific [place] (1.002-1.030) Urine Protein (NEGATIVE) mg/dL Urine Glucose (UA) (NEGATIVE) mg/dL Urine Ketones (NEGATIVE) mg/dL Urine Occult Blood (NEGATIVE) Urine Nitrite (NEGATIVE) Urine Bilirubin (NEGATIVE) Urine Urobilinogen (NORMAL) E.U./dL Ur Leukocyte Esterase (NEGATIVE) Urine RBC (0-5) /HPF Urine WBC (0-5) /HPF Ur Squamous Epith Cells (<= Few) Urine Bacteria (None Seen) /HPF Ur Microscopic Review Urine Culture Comments Nasal Screen MRSA (PCR) (NEGATIVE) Serum Ketones (NEGATIVE) 09/26/18 09/26/18 09/26/18 Range/Units 04:00 04:00 00:00 WBC 2.9 L (4.8-10.8) x10^3/uL RBC 4.34 (4.20-5.40) 10^6/uL Hgb 13.1 (12.0-16.0) g/dL Hct 40.2 (37.0-47.0) % MCV 92.6 (81.0-99.0) fL MCH 30.2 (27.0-31.0) pg MCHC 32.6 (32.0-36.0) g/dL RDW 14.3 (12.0-15.0) % Plt Count 193 (130-450) 10^3/uL MPV 9.8 (7.9-10.8) fL Neut # (Auto) Not Reportable Lymph # (Auto) Not Reportable Merrick # (Auto) Not Reportable Eos # (Auto) Not Reportable Baso # (Auto) Not Reportable Absolute Nucleated RBC Not Reportable Total Counted 100 Band Neuts % (Manual) 28 H (0 - 10) % Abnorm Lymph % (Manual) 0 % Metamyelocytes % 3 H ( - 0) % Myelocytes % 1 H ( - 0) % Nucleated RBC % Not Reportable Neutrophils # (Manual) 1.7 (1.5-6.6) 10^3/uL Lymphocytes # (Manual) 0.9 L (1.5-3.5) 10^3/uL Monocytes # (Manual) 0.2 (0.0-1.0) 10^3/uL Eosinophils # (Manual) 0.0 (0-0.7) 10^3/uL Basophils # (Manual) 0.0 (0-0.1) 10^3/uL Differential Comment MANUAL DIFFERENTIAL WBC Morphology (NORMAL) Platelet Estimate NORMAL (130-450,000) (NORMAL) Platelet Morphology (NORMAL) RBC Morph Micro Appear NORMAL APPEARANCE (NORMAL) Bld Gas Analysis Time Sample Site ABG pH (7.35-7.45) ABG pCO2 (34-45) mmHg ABG pO2 (80-100) mmHg ABG HCO3 (22.0-26.0) mmol/L ABG Total CO2 (21.0-29.0) MMOL/L ABG O2 Saturation (94-98) % ABG Base Excess (-2.0-3.0) mmol/L Karlo Test VBG pH (7.31-7.41) Ionized Calcium (1.15-1.33) mmol/L Respiration Rate b/min O2 Delivery Device Vent Mode FiO2 Tidal Volume mL PEEP cmH2O Pressure Support Vent cmH2O Sodium 136 (135-145) mmol/L Potassium 4.8 (3.5-5.0) mmol/L Chloride 110 (101-111) mmol/L Carbon Dioxide 17 L (21-32) mmol/L Anion Gap 9.0 (6-13) BUN 38 H (6-20) mg/dL Creatinine 2.2 H (0.4-1.0) mg/dL Estimated GFR (MDRD) 22 L (>89) Glucose 239 H (70-100) mg/dL POC Whole Bld Glucose 227 H (70 - 100) mg/dL Glycated Hemoglobin (4.6-6.2) % Estim Average Glucose (70-100) Lactic Acid (0.5-2.2) mmol/L Calcium 6.1 L* (8.5-10.3) mg/dL Magnesium 2.4 (1.7-2.8) mg/dL Total Bilirubin 2.0 H (0.2-1.0) mg/dL AST 42 (10-42) IU/L ALT 25 (10-60) IU/L Alkaline Phosphatase 32 L (42-121) IU/L Troponin I (<0.49) ng/mL B-Natriuretic Peptide (5-100) pg/mL Total Protein 4.3 L (6.7-8.2) g/dL Albumin 2.0 L (3.2-5.5) g/dL Globulin 2.3 (2.1-4.2) g/dL Albumin/Globulin Ratio 0.9 L (1.0-2.2) Lipase (22-51) U/L PTH Intact (12-88) pg/mL Urine Color Urine Clarity (CLEAR) Urine pH (5.0-7.5) PH Ur Specific [place] (1.002-1.030) Urine Protein (NEGATIVE) mg/dL Urine Glucose (UA) (NEGATIVE) mg/dL Urine Ketones (NEGATIVE) mg/dL Urine Occult Blood (NEGATIVE) Urine Nitrite (NEGATIVE) Urine Bilirubin (NEGATIVE) Urine Urobilinogen (NORMAL) E.U./dL Ur Leukocyte Esterase (NEGATIVE) Urine RBC (0-5) /HPF Urine WBC (0-5) /HPF Ur Squamous Epith Cells (<= Few) Urine Bacteria (None Seen) /HPF Ur Microscopic Review Urine Culture Comments Nasal Screen MRSA (PCR) (NEGATIVE) Serum Ketones (NEGATIVE) 09/25/18 09/25/18 09/25/18 Range/Units Unknown 23:00 22:15 WBC (4.8-10.8) x10^3/uL RBC (4.20-5.40) 10^6/uL Hgb (12.0-16.0) g/dL Hct (37.0-47.0) % MCV (81.0-99.0) fL MCH (27.0-31.0) pg MCHC (32.0-36.0) g/dL RDW (12.0-15.0) % Plt Count (130-450) 10^3/uL MPV (7.9-10.8) fL Neut # (Auto) Lymph # (Auto) Merrick # (Auto) Eos # (Auto) Baso # (Auto) Absolute Nucleated RBC Total Counted Band Neuts % (Manual) (0 - 10) % Abnorm Lymph % (Manual) % Metamyelocytes % ( - 0) % Myelocytes % ( - 0) % Nucleated RBC % Neutrophils # (Manual) (1.5-6.6) 10^3/uL Lymphocytes # (Manual) (1.5-3.5) 10^3/uL Monocytes # (Manual) (0.0-1.0) 10^3/uL Eosinophils # (Manual) (0-0.7) 10^3/uL Basophils # (Manual) (0-0.1) 10^3/uL Differential Comment WBC Morphology (NORMAL) Platelet Estimate (NORMAL) Platelet Morphology (NORMAL) RBC Morph Micro Appear (NORMAL) Bld Gas Analysis Time 7039 0088 Sample Site LEFT RADIAL LEFT RADIAL ABG pH 7.22 L 7.23 L (7.35-7.45) ABG pCO2 43 40 (34-45) mmHg ABG pO2 69 L 61 L (80-100) mmHg ABG HCO3 17.0 L 16.7 L (22.0-26.0) mmol/L ABG Total CO2 18.3 L 17.9 L (21.0-29.0) MMOL/L ABG O2 Saturation 93 L 91 L (94-98) % ABG Base Excess -10.4 L -10.3 L (-2.0-3.0) mmol/L Karlo Test POSITIVE POSITIVE VBG pH (7.31-7.41) Ionized Calcium (1.15-1.33) mmol/L Respiration Rate 16 20 b/min O2 Delivery Device VENTILATOR VENTILATOR Vent Mode SIMV SIMV FiO2 100.00 80.00 Tidal Volume 400 400 mL PEEP 5 5 cmH2O Pressure Support Vent 10 10 cmH2O Sodium (135-145) mmol/L Potassium (3.5-5.0) mmol/L Chloride (101-111) mmol/L Carbon Dioxide (21-32) mmol/L Anion Gap (6-13) BUN (6-20) mg/dL Creatinine (0.4-1.0) mg/dL Estimated GFR (MDRD) (>89) Glucose (70-100) mg/dL POC Whole Bld Glucose (70 - 100) mg/dL Glycated Hemoglobin (4.6-6.2) % Estim Average Glucose (70-100) Lactic Acid (0.5-2.2) mmol/L Calcium (8.5-10.3) mg/dL Magnesium (1.7-2.8) mg/dL Total Bilirubin (0.2-1.0) mg/dL AST (10-42) IU/L ALT (10-60) IU/L Alkaline Phosphatase (42-121) IU/L Troponin I (<0.49) ng/mL B-Natriuretic Peptide (5-100) pg/mL Total Protein (6.7-8.2) g/dL Albumin (3.2-5.5) g/dL Globulin (2.1-4.2) g/dL Albumin/Globulin Ratio (1.0-2.2) Lipase (22-51) U/L PTH Intact (12-88) pg/mL Urine Color LT. YELLOW Urine Clarity SL. CLOUDY (CLEAR) Urine pH 5.5 (5.0-7.5) PH Ur Specific [place] 1.025 (1.002-1.030) Urine Protein 30 H (NEGATIVE) mg/dL Urine Glucose (UA) 100 H (NEGATIVE) mg/dL Urine Ketones 15 H (NEGATIVE) mg/dL Urine Occult Blood MODERATE H (NEGATIVE) Urine Nitrite POSITIVE H (NEGATIVE) Urine Bilirubin NEGATIVE (NEGATIVE) Urine Urobilinogen 0.2 (NORMAL) (NORMAL) E.U./dL Ur Leukocyte Esterase SMALL H (NEGATIVE) Urine RBC 0-5 (0-5) /HPF Urine WBC 4-5 (0-5) /HPF Ur Squamous Epith Cells RARE Squamous (<= Few) Urine Bacteria Many H (None Seen) /HPF Ur Microscopic Review INDICATED Urine Culture Comments INDICATED Nasal Screen MRSA (PCR) (NEGATIVE) Serum Ketones (NEGATIVE) 09/25/18 09/25/18 09/25/18 Range/Units 21:05 20:43 20:25 WBC (4.8-10.8) x10^3/uL RBC (4.20-5.40) 10^6/uL Hgb (12.0-16.0) g/dL Hct (37.0-47.0) % MCV (81.0-99.0) fL MCH (27.0-31.0) pg MCHC (32.0-36.0) g/dL RDW (12.0-15.0) % Plt Count (130-450) 10^3/uL MPV (7.9-10.8) fL Neut # (Auto) Lymph # (Auto) Merrick # (Auto) Eos # (Auto) Baso # (Auto) Absolute Nucleated RBC Total Counted Band Neuts % (Manual) (0 - 10) % Abnorm Lymph % (Manual) % Metamyelocytes % ( - 0) % Myelocytes % ( - 0) % Nucleated RBC % Neutrophils # (Manual) (1.5-6.6) 10^3/uL Lymphocytes # (Manual) (1.5-3.5) 10^3/uL Monocytes # (Manual) (0.0-1.0) 10^3/uL Eosinophils # (Manual) (0-0.7) 10^3/uL Basophils # (Manual) (0-0.1) 10^3/uL Differential Comment WBC Morphology (NORMAL) Platelet Estimate (NORMAL) Platelet Morphology (NORMAL) RBC Morph Micro Appear (NORMAL) Bld Gas Analysis Time Sample Site ABG pH (7.35-7.45) ABG pCO2 (34-45) mmHg ABG pO2 (80-100) mmHg ABG HCO3 (22.0-26.0) mmol/L ABG Total CO2 (21.0-29.0) MMOL/L ABG O2 Saturation (94-98) % ABG Base Excess (-2.0-3.0) mmol/L Karlo Test VBG pH 7.166 L (7.31-7.41) Ionized Calcium 0.94 L (1.15-1.33) mmol/L Respiration Rate b/min O2 Delivery Device Vent Mode FiO2 Tidal Volume mL PEEP cmH2O Pressure Support Vent cmH2O Sodium (135-145) mmol/L Potassium (3.5-5.0) mmol/L Chloride (101-111) mmol/L Carbon Dioxide (21-32) mmol/L Anion Gap (6-13) BUN (6-20) mg/dL Creatinine (0.4-1.0) mg/dL Estimated GFR (MDRD) (>89) Glucose (70-100) mg/dL POC Whole Bld Glucose 183 H (70 - 100) mg/dL Glycated Hemoglobin (4.6-6.2) % Estim Average Glucose (70-100) Lactic Acid (0.5-2.2) mmol/L Calcium (8.5-10.3) mg/dL Magnesium (1.7-2.8) mg/dL Total Bilirubin (0.2-1.0) mg/dL AST (10-42) IU/L ALT (10-60) IU/L Alkaline Phosphatase (42-121) IU/L Troponin I (<0.49) ng/mL B-Natriuretic Peptide (5-100) pg/mL Total Protein (6.7-8.2) g/dL Albumin (3.2-5.5) g/dL Globulin (2.1-4.2) g/dL Albumin/Globulin Ratio (1.0-2.2) Lipase (22-51) U/L PTH Intact (12-88) pg/mL Urine Color Urine Clarity (CLEAR) Urine pH (5.0-7.5) PH Ur Specific [place] (1.002-1.030) Urine Protein (NEGATIVE) mg/dL Urine Glucose (UA) (NEGATIVE) mg/dL Urine Ketones (NEGATIVE) mg/dL Urine Occult Blood (NEGATIVE) Urine Nitrite (NEGATIVE) Urine Bilirubin (NEGATIVE) Urine Urobilinogen (NORMAL) E.U./dL Ur Leukocyte Esterase (NEGATIVE) Urine RBC (0-5) /HPF Urine WBC (0-5) /HPF Ur Squamous Epith Cells (<= Few) Urine Bacteria (None Seen) /HPF Ur Microscopic Review Urine Culture Comments Nasal Screen MRSA (PCR) (NEGATIVE) Serum Ketones NEGATIVE (NEGATIVE) 09/25/18 09/25/18 09/25/18 Range/Units 20:25 20:25 20:17 WBC (4.8-10.8) x10^3/uL RBC (4.20-5.40) 10^6/uL Hgb (12.0-16.0) g/dL Hct (37.0-47.0) % MCV (81.0-99.0) fL MCH (27.0-31.0) pg MCHC (32.0-36.0) g/dL RDW (12.0-15.0) % Plt Count (130-450) 10^3/uL MPV (7.9-10.8) fL Neut # (Auto) Lymph # (Auto) Merrick # (Auto) Eos # (Auto) Baso # (Auto) Absolute Nucleated RBC Total Counted Band Neuts % (Manual) (0 - 10) % Abnorm Lymph % (Manual) % Metamyelocytes % ( - 0) % Myelocytes % ( - 0) % Nucleated RBC % Neutrophils # (Manual) (1.5-6.6) 10^3/uL Lymphocytes # (Manual) (1.5-3.5) 10^3/uL Monocytes # (Manual) (0.0-1.0) 10^3/uL Eosinophils # (Manual) (0-0.7) 10^3/uL Basophils # (Manual) (0-0.1) 10^3/uL Differential Comment WBC Morphology (NORMAL) Platelet Estimate (NORMAL) Platelet Morphology (NORMAL) RBC Morph Micro Appear (NORMAL) Bld Gas Analysis Time Sample Site ABG pH (7.35-7.45) ABG pCO2 (34-45) mmHg ABG pO2 (80-100) mmHg ABG HCO3 (22.0-26.0) mmol/L ABG Total CO2 (21.0-29.0) MMOL/L ABG O2 Saturation (94-98) % ABG Base Excess (-2.0-3.0) mmol/L Karlo Test VBG pH (7.31-7.41) Ionized Calcium (1.15-1.33) mmol/L Respiration Rate b/min O2 Delivery Device Vent Mode FiO2 Tidal Volume mL PEEP cmH2O Pressure Support Vent cmH2O Sodium (135-145) mmol/L Potassium (3.5-5.0) mmol/L Chloride (101-111) mmol/L Carbon Dioxide (21-32) mmol/L Anion Gap (6-13) BUN (6-20) mg/dL Creatinine (0.4-1.0) mg/dL Estimated GFR (MDRD) (>89) Glucose (70-100) mg/dL POC Whole Bld Glucose (70 - 100) mg/dL Glycated Hemoglobin 7.3 H (4.6-6.2) % Estim Average Glucose 163 H (70-100) Lactic Acid 2.4 H (0.5-2.2) mmol/L Calcium (8.5-10.3) mg/dL Magnesium (1.7-2.8) mg/dL Total Bilirubin (0.2-1.0) mg/dL AST (10-42) IU/L ALT (10-60) IU/L Alkaline Phosphatase (42-121) IU/L Troponin I (<0.49) ng/mL B-Natriuretic Peptide (5-100) pg/mL Total Protein (6.7-8.2) g/dL Albumin (3.2-5.5) g/dL Globulin (2.1-4.2) g/dL Albumin/Globulin Ratio (1.0-2.2) Lipase (22-51) U/L PTH Intact (12-88) pg/mL Urine Color Urine Clarity (CLEAR) Urine pH (5.0-7.5) PH Ur Specific [place] (1.002-1.030) Urine Protein (NEGATIVE) mg/dL Urine Glucose (UA) (NEGATIVE) mg/dL Urine Ketones (NEGATIVE) mg/dL Urine Occult Blood (NEGATIVE) Urine Nitrite (NEGATIVE) Urine Bilirubin (NEGATIVE) Urine Urobilinogen (NORMAL) E.U./dL Ur Leukocyte Esterase (NEGATIVE) Urine RBC (0-5) /HPF Urine WBC (0-5) /HPF Ur Squamous Epith Cells (<= Few) Urine Bacteria (None Seen) /HPF Ur Microscopic Review Urine Culture Comments Nasal Screen MRSA (PCR) NEGATIVE (NEGATIVE) Serum Ketones (NEGATIVE) 09/25/18 09/25/18 09/25/18 Range/Units 14:58 14:37 14:37 WBC (4.8-10.8) x10^3/uL RBC (4.20-5.40) 10^6/uL Hgb (12.0-16.0) g/dL Hct (37.0-47.0) % MCV (81.0-99.0) fL MCH (27.0-31.0) pg MCHC (32.0-36.0) g/dL RDW (12.0-15.0) % Plt Count (130-450) 10^3/uL MPV (7.9-10.8) fL Neut # (Auto) Lymph # (Auto) Merrick # (Auto) Eos # (Auto) Baso # (Auto) Absolute Nucleated RBC Total Counted Band Neuts % (Manual) (0 - 10) % Abnorm Lymph % (Manual) % Metamyelocytes % ( - 0) % Myelocytes % ( - 0) % Nucleated RBC % Neutrophils # (Manual) (1.5-6.6) 10^3/uL Lymphocytes # (Manual) (1.5-3.5) 10^3/uL Monocytes # (Manual) (0.0-1.0) 10^3/uL Eosinophils # (Manual) (0-0.7) 10^3/uL Basophils # (Manual) (0-0.1) 10^3/uL Differential Comment WBC Morphology (NORMAL) Platelet Estimate (NORMAL) Platelet Morphology (NORMAL) RBC Morph Micro Appear (NORMAL) Bld Gas Analysis Time Sample Site ABG pH (7.35-7.45) ABG pCO2 (34-45) mmHg ABG pO2 (80-100) mmHg ABG HCO3 (22.0-26.0) mmol/L ABG Total CO2 (21.0-29.0) MMOL/L ABG O2 Saturation (94-98) % ABG Base Excess (-2.0-3.0) mmol/L Karlo Test VBG pH (7.31-7.41) Ionized Calcium (1.15-1.33) mmol/L Respiration Rate b/min O2 Delivery Device Vent Mode FiO2 Tidal Volume mL PEEP cmH2O Pressure Support Vent cmH2O Sodium 130 L (135-145) mmol/L Potassium 4.2 (3.5-5.0) mmol/L Chloride 94 L (101-111) mmol/L Carbon Dioxide 19 L (21-32) mmol/L Anion Gap 17.0 H (6-13) BUN 38 H (6-20) mg/dL Creatinine 3.4 H (0.4-1.0) mg/dL Estimated GFR (MDRD) 13 L (>89) Glucose 269 H (70-100) mg/dL POC Whole Bld Glucose (70 - 100) mg/dL Glycated Hemoglobin (4.6-6.2) % Estim Average Glucose (70-100) Lactic Acid 4.4 H* (0.5-2.2) mmol/L Calcium 7.6 L (8.5-10.3) mg/dL Magnesium (1.7-2.8) mg/dL Total Bilirubin 2.8 H (0.2-1.0) mg/dL AST 29 (10-42) IU/L ALT 16 (10-60) IU/L Alkaline Phosphatase 37 L (42-121) IU/L Troponin I < 0.04 (<0.49) ng/mL B-Natriuretic Peptide (5-100) pg/mL Total Protein 6.5 L (6.7-8.2) g/dL Albumin 3.4 (3.2-5.5) g/dL Globulin 3.1 (2.1-4.2) g/dL Albumin/Globulin Ratio 1.1 (1.0-2.2) Lipase 384 H (22-51) U/L PTH Intact (12-88) pg/mL Urine Color Urine Clarity (CLEAR) Urine pH (5.0-7.5) PH Ur Specific [place] (1.002-1.030) Urine Protein (NEGATIVE) mg/dL Urine Glucose (UA) (NEGATIVE) mg/dL Urine Ketones (NEGATIVE) mg/dL Urine Occult Blood (NEGATIVE) Urine Nitrite (NEGATIVE) Urine Bilirubin (NEGATIVE) Urine Urobilinogen (NORMAL) E.U./dL Ur Leukocyte Esterase (NEGATIVE) Urine RBC (0-5) /HPF Urine WBC (0-5) /HPF Ur Squamous Epith Cells (<= Few) Urine Bacteria (None Seen) /HPF Ur Microscopic Review Urine Culture Comments Nasal Screen MRSA (PCR) (NEGATIVE) Serum Ketones (NEGATIVE) 09/25/18 Range/Units 14:37 WBC 2.9 L (4.8-10.8) x10^3/uL RBC 5.15 (4.20-5.40) 10^6/uL Hgb 15.2 (12.0-16.0) g/dL Hct 47.5 H (37.0-47.0) % MCV 92.2 (81.0-99.0) fL MCH 29.5 (27.0-31.0) pg MCHC 32.0 (32.0-36.0) g/dL RDW 13.8 (12.0-15.0) % Plt Count 236 (130-450) 10^3/uL MPV 9.3 (7.9-10.8) fL Neut # (Auto) Not Reportable Lymph # (Auto) Not Reportable Merrick # (Auto) Not Reportable Eos # (Auto) Not Reportable Baso # (Auto) Not Reportable Absolute Nucleated RBC Not Reportable Total Counted 100 Band Neuts % (Manual) 14 H (0 - 10) % Abnorm Lymph % (Manual) 0 % Metamyelocytes % 5 H ( - 0) % Myelocytes % 3 H ( - 0) % Nucleated RBC % Not Reportable Neutrophils # (Manual) 1.2 L (1.5-6.6) 10^3/uL Lymphocytes # (Manual) 1.2 L (1.5-3.5) 10^3/uL Monocytes # (Manual) 0.2 (0.0-1.0) 10^3/uL Eosinophils # (Manual) 0.0 (0-0.7) 10^3/uL Basophils # (Manual) 0.0 (0-0.1) 10^3/uL Differential Comment MANUAL DIFFERENTIAL WBC Morphology 1+ SMUDGE CELLS (NORMAL) Platelet Estimate NORMAL (130-450,000) (NORMAL) Platelet Morphology RARE GIANT PLATELETS (NORMAL) RBC Morph Micro Appear NORMAL APPEARANCE (NORMAL) Bld Gas Analysis Time Sample Site ABG pH (7.35-7.45) ABG pCO2 (34-45) mmHg ABG pO2 (80-100) mmHg ABG HCO3 (22.0-26.0) mmol/L ABG Total CO2 (21.0-29.0) MMOL/L ABG O2 Saturation (94-98) % ABG Base Excess (-2.0-3.0) mmol/L Karlo Test VBG pH (7.31-7.41) Ionized Calcium (1.15-1.33) mmol/L Respiration Rate b/min O2 Delivery Device Vent Mode FiO2 Tidal Volume mL PEEP cmH2O Pressure Support Vent cmH2O Sodium (135-145) mmol/L Potassium (3.5-5.0) mmol/L Chloride (101-111) mmol/L Carbon Dioxide (21-32) mmol/L Anion Gap (6-13) BUN (6-20) mg/dL Creatinine (0.4-1.0) mg/dL Estimated GFR (MDRD) (>89) Glucose (70-100) mg/dL POC Whole Bld Glucose (70 - 100) mg/dL Glycated Hemoglobin (4.6-6.2) % Estim Average Glucose (70-100) Lactic Acid (0.5-2.2) mmol/L Calcium (8.5-10.3) mg/dL Magnesium (1.7-2.8) mg/dL Total Bilirubin (0.2-1.0) mg/dL AST (10-42) IU/L ALT (10-60) IU/L Alkaline Phosphatase (42-121) IU/L Troponin I (<0.49) ng/mL B-Natriuretic Peptide (5-100) pg/mL Total Protein (6.7-8.2) g/dL Albumin (3.2-5.5) g/dL Globulin (2.1-4.2) g/dL Albumin/Globulin Ratio (1.0-2.2) Lipase (22-51) U/L PTH Intact (12-88) pg/mL Urine Color Urine Clarity (CLEAR) Urine pH (5.0-7.5) PH Ur Specific [place] (1.002-1.030) Urine Protein (NEGATIVE) mg/dL Urine Glucose (UA) (NEGATIVE) mg/dL Urine Ketones (NEGATIVE) mg/dL Urine Occult Blood (NEGATIVE) Urine Nitrite (NEGATIVE) Urine Bilirubin (NEGATIVE) Urine Urobilinogen (NORMAL) E.U./dL Ur Leukocyte Esterase (NEGATIVE) Urine RBC (0-5) /HPF Urine WBC (0-5) /HPF Ur Squamous Epith Cells (<= Few) Urine Bacteria (None Seen) /HPF Ur Microscopic Review Urine Culture Comments Nasal Screen MRSA (PCR) (NEGATIVE) Serum Ketones (NEGATIVE) Sepsis Event Note (H) - Evaluation Current Stage of Sepsis: Septic shock Possible source of Sepsis: positive: GI tract/intra-abdominal - Sepsis Criteria Sepsis Criteria: Recorded Heart Rate greater than 90 bpm, Recorded Respiratory Rate greater than 20, WBC count greater than 12,000 or less than 4000, MAP less than 65 mmHg, Metabolic: lactate > 2 mmol/L, Hepatic: Bilirubin greater than 2mg/dl
[2018-09-26] MEDS: SODIUM CHLORIDE FLUSH 0.9% 10 ML SYRINGE IVP SCH ×2 (10:34→20:08)
[2018-09-26] MEDS: HYDROmorphone PCA 20MG/100ML IV PRN (10:59)
[2018-09-26] MEDS ORDERED: fentaNYL 100 MCG/2 ML VIAL IVP PRN (12:15)
[2018-09-26] MEDS ORDERED: VANCOMYCIN PER PHARMACY 100 GM in SODIUM CHLORIDE 0.9% 250 ML IV SCH ×4 (16:00)
[2018-09-26 16:27] LABS: CALCIUM 6.4 mg/dL (8.5-10.3); CREATININE 2.4 mg/dL (0.4-1.0)
[2018-09-26] MEDS ORDERED: VANCOMYCIN INJ 1.75 GM in SODIUM CHLORIDE 0.9% 500 ML IV SCH (17:00)
--- NOTE | 2018-09-26 17:11 | PROVIDER PROGRESS NOTE ---
Subjective - Prog Note Date Prog Note Date: 09/26/18 Prog Note Time: 17:09 - Subjective Pt reports feeling: Worse (Requiring increasing doses of pressors over the last 24 hours) Subjective: Patient intubated and chemically sedated. The hospitalist is managing ventilatory settings. PIP is 26.4 currently. Some concern for ARDS. Creatinine is down slightly and UOP has improved. Abdomen is distended. Drains are scant. Dressing changed today. Appreciate hospitalist help. She is gravely ill and prognosis is guarded. Objective - Vital Signs/Intake & Output Vital Signs: Vital Signs x48h Temp Pulse Pulse Resp BP Pulse Ox 09/26/18 16:29 118 H 09/26/18 16:00 36.0 C L 117 H 16 93/60 99 09/26/18 15:29 117 H 09/26/18 15:00 116 H 16 90/58 L 99 09/26/18 14:20 117 H 09/26/18 14:00 118 H 16 89/61 L 100 09/26/18 13:00 116 H 16 87/66 L 09/26/18 12:00 36.9 C 117 H 17 91/67 09/26/18 11:21 116 H 09/26/18 11:00 115 H 18 102/66 99 09/26/18 10:00 117 H 20 102/63 98 Intake & Output: Intake & Output 09/23/18 09/24/18 09/25/18 09/26/18 23:59 23:59 23:59 23:59 Intake Total 4005.676 4131.206 Output Total 206 530 Balance 3799.676 3601.206 - Lab Results Fish Bones: 09/26/18 04:00 09/26/18 16:03 Other Labs: Lab Results x24hrs 09/26/18 09/26/18 09/26/18 Range/Units 16:03 16:03 12:05 WBC (4.8-10.8) x10^3/uL RBC (4.20-5.40) 10^6/uL Hgb (12.0-16.0) g/dL Hct (37.0-47.0) % MCV (81.0-99.0) fL MCH (27.0-31.0) pg MCHC (32.0-36.0) g/dL RDW (12.0-15.0) % Plt Count (130-450) 10^3/uL MPV (7.9-10.8) fL Neut # (Auto) Lymph # (Auto) [place] # (Auto) Eos # (Auto) Baso # (Auto) Absolute Nucleated RBC Total Counted Band Neuts % (Manual) (0 - 10) % Abnorm Lymph % (Manual) % Metamyelocytes % ( - 0) % Myelocytes % ( - 0) % Nucleated RBC % Neutrophils # (Manual) (1.5-6.6) 10^3/uL Lymphocytes # (Manual) (1.5-3.5) 10^3/uL Monocytes # (Manual) (0.0-1.0) 10^3/uL Eosinophils # (Manual) (0-0.7) 10^3/uL Basophils # (Manual) (0-0.1) 10^3/uL Differential Comment Platelet Estimate (NORMAL) RBC Morph Micro Appear (NORMAL) Bld Gas Analysis Time Sample Site ABG pH (7.35-7.45) ABG pCO2 (34-45) mmHg ABG pO2 (80-100) mmHg ABG HCO3 (22.0-26.0) mmol/L ABG Total CO2 (21.0-29.0) MMOL/L ABG O2 Saturation (94-98) % ABG Base Excess (-2.0-3.0) mmol/L Karlo Test VBG pH (7.31-7.41) Ionized Calcium (1.15-1.33) mmol/L Respiration Rate b/min O2 Delivery Device Vent Mode FiO2 Tidal Volume mL PEEP cmH2O Pressure Support Vent cmH2O Sodium 134 L (135-145) mmol/L Potassium 4.4 (3.5-5.0) mmol/L Chloride 106 (101-111) mmol/L Carbon Dioxide 19 L (21-32) mmol/L Anion Gap 9.0 (6-13) BUN 41 H (6-20) mg/dL Creatinine 2.4 H (0.4-1.0) mg/dL Estimated GFR (MDRD) 20 L (>89) Glucose 261 H (70-100) mg/dL POC Whole Bld Glucose 287 H (70 - 100) mg/dL Glycated Hemoglobin (4.6-6.2) % Estim Average Glucose (70-100) Lactic Acid 2.9 H (0.5-2.2) mmol/L Calcium 6.4 L* (8.5-10.3) mg/dL Magnesium (1.7-2.8) mg/dL Total Bilirubin (0.2-1.0) mg/dL AST (10-42) IU/L ALT (10-60) IU/L Alkaline Phosphatase (42-121) IU/L B-Natriuretic Peptide (5-100) pg/mL Total Protein (6.7-8.2) g/dL Albumin (3.2-5.5) g/dL Globulin (2.1-4.2) g/dL Albumin/Globulin Ratio (1.0-2.2) PTH Intact (12-88) pg/mL Nasal Screen MRSA (PCR) (NEGATIVE) Serum Ketones (NEGATIVE) 09/26/18 09/26/18 09/26/18 Range/Units 05:27 05:15 05:15 WBC (4.8-10.8) x10^3/uL RBC (4.20-5.40) 10^6/uL Hgb (12.0-16.0) g/dL Hct (37.0-47.0) % MCV (81.0-99.0) fL MCH (27.0-31.0) pg MCHC (32.0-36.0) g/dL RDW (12.0-15.0) % Plt Count (130-450) 10^3/uL MPV (7.9-10.8) fL Neut # (Auto) Lymph # (Auto) [place] # (Auto) Eos # (Auto) Baso # (Auto) Absolute Nucleated RBC Total Counted Band Neuts % (Manual) (0 - 10) % Abnorm Lymph % (Manual) % Metamyelocytes % ( - 0) % Myelocytes % ( - 0) % Nucleated RBC % Neutrophils # (Manual) (1.5-6.6) 10^3/uL Lymphocytes # (Manual) (1.5-3.5) 10^3/uL Monocytes # (Manual) (0.0-1.0) 10^3/uL Eosinophils # (Manual) (0-0.7) 10^3/uL Basophils # (Manual) (0-0.1) 10^3/uL Differential Comment Platelet Estimate (NORMAL) RBC Morph Micro Appear (NORMAL) Bld Gas Analysis Time Sample Site ABG pH (7.35-7.45) ABG pCO2 (34-45) mmHg ABG pO2 (80-100) mmHg ABG HCO3 (22.0-26.0) mmol/L ABG Total CO2 (21.0-29.0) MMOL/L ABG O2 Saturation (94-98) % ABG Base Excess (-2.0-3.0) mmol/L Karlo Test VBG pH 7.220 L (7.31-7.41) Ionized Calcium 0.90 L (1.15-1.33) mmol/L Respiration Rate b/min O2 Delivery Device Vent Mode FiO2 Tidal Volume mL PEEP cmH2O Pressure Support Vent cmH2O Sodium (135-145) mmol/L Potassium (3.5-5.0) mmol/L Chloride (101-111) mmol/L Carbon Dioxide (21-32) mmol/L Anion Gap (6-13) BUN (6-20) mg/dL Creatinine (0.4-1.0) mg/dL Estimated GFR (MDRD) (>89) Glucose (70-100) mg/dL POC Whole Bld Glucose 193 H (70 - 100) mg/dL Glycated Hemoglobin (4.6-6.2) % Estim Average Glucose (70-100) Lactic Acid (0.5-2.2) mmol/L Calcium (8.5-10.3) mg/dL Magnesium (1.7-2.8) mg/dL Total Bilirubin (0.2-1.0) mg/dL AST (10-42) IU/L ALT (10-60) IU/L Alkaline Phosphatase (42-121) IU/L B-Natriuretic Peptide (5-100) pg/mL Total Protein (6.7-8.2) g/dL Albumin (3.2-5.5) g/dL Globulin (2.1-4.2) g/dL Albumin/Globulin Ratio (1.0-2.2) PTH Intact 644 H (12-88) pg/mL Nasal Screen MRSA (PCR) (NEGATIVE) Serum Ketones (NEGATIVE) 09/26/18 09/26/18 09/26/18 Range/Units 04:07 04:00 04:00 WBC (4.8-10.8) x10^3/uL RBC (4.20-5.40) 10^6/uL Hgb (12.0-16.0) g/dL Hct (37.0-47.0) % MCV (81.0-99.0) fL MCH (27.0-31.0) pg MCHC (32.0-36.0) g/dL RDW (12.0-15.0) % Plt Count (130-450) 10^3/uL MPV (7.9-10.8) fL Neut # (Auto) Lymph # (Auto) [place] # (Auto) Eos # (Auto) Baso # (Auto) Absolute Nucleated RBC Total Counted Band Neuts % (Manual) (0 - 10) % Abnorm Lymph % (Manual) % Metamyelocytes % ( - 0) % Myelocytes % ( - 0) % Nucleated RBC % Neutrophils # (Manual) (1.5-6.6) 10^3/uL Lymphocytes # (Manual) (1.5-3.5) 10^3/uL Monocytes # (Manual) (0.0-1.0) 10^3/uL Eosinophils # (Manual) (0-0.7) 10^3/uL Basophils # (Manual) (0-0.1) 10^3/uL Differential Comment Platelet Estimate (NORMAL) RBC Morph Micro Appear (NORMAL) Bld Gas Analysis Time 0415 Sample Site LEFT RADIAL ABG pH 7.24 L (7.35-7.45) ABG pCO2 41 (34-45) mmHg ABG pO2 98 (80-100) mmHg ABG HCO3 17.0 L (22.0-26.0) mmol/L ABG Total CO2 18.3 L (21.0-29.0) MMOL/L ABG O2 Saturation 97 (94-98) % ABG Base Excess -9.8 L (-2.0-3.0) mmol/L Karlo Test POSITIVE VBG pH (7.31-7.41) Ionized Calcium (1.15-1.33) mmol/L Respiration Rate 16 b/min O2 Delivery Device VENTILATOR Vent Mode SIMV FiO2 100.00 Tidal Volume 400 mL PEEP 8 cmH2O Pressure Support Vent 10 cmH2O Sodium (135-145) mmol/L Potassium (3.5-5.0) mmol/L Chloride (101-111) mmol/L Carbon Dioxide (21-32) mmol/L Anion Gap (6-13) BUN (6-20) mg/dL Creatinine (0.4-1.0) mg/dL Estimated GFR (MDRD) (>89) Glucose (70-100) mg/dL POC Whole Bld Glucose (70 - 100) mg/dL Glycated Hemoglobin (4.6-6.2) % Estim Average Glucose (70-100) Lactic Acid 3.0 H* (0.5-2.2) mmol/L Calcium (8.5-10.3) mg/dL Magnesium (1.7-2.8) mg/dL Total Bilirubin (0.2-1.0) mg/dL AST (10-42) IU/L ALT (10-60) IU/L Alkaline Phosphatase (42-121) IU/L B-Natriuretic Peptide 1149 H (5-100) pg/mL Total Protein (6.7-8.2) g/dL Albumin (3.2-5.5) g/dL Globulin (2.1-4.2) g/dL Albumin/Globulin Ratio (1.0-2.2) PTH Intact (12-88) pg/mL Nasal Screen MRSA (PCR) (NEGATIVE) Serum Ketones (NEGATIVE) 09/26/18 09/26/18 09/26/18 Range/Units 04:00 04:00 00:00 WBC 2.9 L (4.8-10.8) x10^3/uL RBC 4.34 (4.20-5.40) 10^6/uL Hgb 13.1 (12.0-16.0) g/dL Hct 40.2 (37.0-47.0) % MCV 92.6 (81.0-99.0) fL MCH 30.2 (27.0-31.0) pg MCHC 32.6 (32.0-36.0) g/dL RDW 14.3 (12.0-15.0) % Plt Count 193 (130-450) 10^3/uL MPV 9.8 (7.9-10.8) fL Neut # (Auto) Not Reportable Lymph # (Auto) Not Reportable [place] # (Auto) Not Reportable Eos # (Auto) Not Reportable Baso # (Auto) Not Reportable Absolute Nucleated RBC Not Reportable Total Counted 100 Band Neuts % (Manual) 28 H (0 - 10) % Abnorm Lymph % (Manual) 0 % Metamyelocytes % 3 H ( - 0) % Myelocytes % 1 H ( - 0) % Nucleated RBC % Not Reportable Neutrophils # (Manual) 1.7 (1.5-6.6) 10^3/uL Lymphocytes # (Manual) 0.9 L (1.5-3.5) 10^3/uL Monocytes # (Manual) 0.2 (0.0-1.0) 10^3/uL Eosinophils # (Manual) 0.0 (0-0.7) 10^3/uL Basophils # (Manual) 0.0 (0-0.1) 10^3/uL Differential Comment MANUAL DIFFERENTIAL Platelet Estimate NORMAL (130-450,000) (NORMAL) RBC Morph Micro Appear NORMAL APPEARANCE (NORMAL) Bld Gas Analysis Time Sample Site ABG pH (7.35-7.45) ABG pCO2 (34-45) mmHg ABG pO2 (80-100) mmHg ABG HCO3 (22.0-26.0) mmol/L ABG Total CO2 (21.0-29.0) MMOL/L ABG O2 Saturation (94-98) % ABG Base Excess (-2.0-3.0) mmol/L Karlo Test VBG pH (7.31-7.41) Ionized Calcium (1.15-1.33) mmol/L Respiration Rate b/min O2 Delivery Device Vent Mode FiO2 Tidal Volume mL PEEP cmH2O Pressure Support Vent cmH2O Sodium 136 (135-145) mmol/L Potassium 4.8 (3.5-5.0) mmol/L Chloride 110 (101-111) mmol/L Carbon Dioxide 17 L (21-32) mmol/L Anion Gap 9.0 (6-13) BUN 38 H (6-20) mg/dL Creatinine 2.2 H (0.4-1.0) mg/dL Estimated GFR (MDRD) 22 L (>89) Glucose 239 H (70-100) mg/dL POC Whole Bld Glucose 227 H (70 - 100) mg/dL Glycated Hemoglobin (4.6-6.2) % Estim Average Glucose (70-100) Lactic Acid (0.5-2.2) mmol/L Calcium 6.1 L* (8.5-10.3) mg/dL Magnesium 2.4 (1.7-2.8) mg/dL Total Bilirubin 2.0 H (0.2-1.0) mg/dL AST 42 (10-42) IU/L ALT 25 (10-60) IU/L Alkaline Phosphatase 32 L (42-121) IU/L B-Natriuretic Peptide (5-100) pg/mL Total Protein 4.3 L (6.7-8.2) g/dL Albumin 2.0 L (3.2-5.5) g/dL Globulin 2.3 (2.1-4.2) g/dL Albumin/Globulin Ratio 0.9 L (1.0-2.2) PTH Intact (12-88) pg/mL Nasal Screen MRSA (PCR) (NEGATIVE) Serum Ketones (NEGATIVE) 09/25/18 09/25/18 09/25/18 Range/Units 23:00 22:15 21:05 WBC (4.8-10.8) x10^3/uL RBC (4.20-5.40) 10^6/uL Hgb (12.0-16.0) g/dL Hct (37.0-47.0) % MCV (81.0-99.0) fL MCH (27.0-31.0) pg MCHC (32.0-36.0) g/dL RDW (12.0-15.0) % Plt Count (130-450) 10^3/uL MPV (7.9-10.8) fL Neut # (Auto) Lymph # (Auto) [place] # (Auto) Eos # (Auto) Baso # (Auto) Absolute Nucleated RBC Total Counted Band Neuts % (Manual) (0 - 10) % Abnorm Lymph % (Manual) % Metamyelocytes % ( - 0) % Myelocytes % ( - 0) % Nucleated RBC % Neutrophils # (Manual) (1.5-6.6) 10^3/uL Lymphocytes # (Manual) (1.5-3.5) 10^3/uL Monocytes # (Manual) (0.0-1.0) 10^3/uL Eosinophils # (Manual) (0-0.7) 10^3/uL Basophils # (Manual) (0-0.1) 10^3/uL Differential Comment Platelet Estimate (NORMAL) RBC Morph Micro Appear (NORMAL) Bld Gas Analysis Time 2309 2223 Sample Site LEFT RADIAL LEFT RADIAL ABG pH 7.22 L 7.23 L (7.35-7.45) ABG pCO2 43 40 (34-45) mmHg ABG pO2 69 L 61 L (80-100) mmHg ABG HCO3 17.0 L 16.7 L (22.0-26.0) mmol/L ABG Total CO2 18.3 L 17.9 L (21.0-29.0) MMOL/L ABG O2 Saturation 93 L 91 L (94-98) % ABG Base Excess -10.4 L -10.3 L (-2.0-3.0) mmol/L Karlo Test POSITIVE POSITIVE VBG pH (7.31-7.41) Ionized Calcium (1.15-1.33) mmol/L Respiration Rate 16 20 b/min O2 Delivery Device VENTILATOR VENTILATOR Vent Mode SIMV SIMV FiO2 100.00 80.00 Tidal Volume 400 400 mL PEEP 5 5 cmH2O Pressure Support Vent 10 10 cmH2O Sodium (135-145) mmol/L Potassium (3.5-5.0) mmol/L Chloride (101-111) mmol/L Carbon Dioxide (21-32) mmol/L Anion Gap (6-13) BUN (6-20) mg/dL Creatinine (0.4-1.0) mg/dL Estimated GFR (MDRD) (>89) Glucose (70-100) mg/dL POC Whole Bld Glucose 183 H (70 - 100) mg/dL Glycated Hemoglobin (4.6-6.2) % Estim Average Glucose (70-100) Lactic Acid (0.5-2.2) mmol/L Calcium (8.5-10.3) mg/dL Magnesium (1.7-2.8) mg/dL Total Bilirubin (0.2-1.0) mg/dL AST (10-42) IU/L ALT (10-60) IU/L Alkaline Phosphatase (42-121) IU/L B-Natriuretic Peptide (5-100) pg/mL Total Protein (6.7-8.2) g/dL Albumin (3.2-5.5) g/dL Globulin (2.1-4.2) g/dL Albumin/Globulin Ratio (1.0-2.2) PTH Intact (12-88) pg/mL Nasal Screen MRSA (PCR) (NEGATIVE) Serum Ketones (NEGATIVE) 09/25/18 09/25/18 09/25/18 Range/Units 20:43 20:25 20:25 WBC (4.8-10.8) x10^3/uL RBC (4.20-5.40) 10^6/uL Hgb (12.0-16.0) g/dL Hct (37.0-47.0) % MCV (81.0-99.0) fL MCH (27.0-31.0) pg MCHC (32.0-36.0) g/dL RDW (12.0-15.0) % Plt Count (130-450) 10^3/uL MPV (7.9-10.8) fL Neut # (Auto) Lymph # (Auto) [place] # (Auto) Eos # (Auto) Baso # (Auto) Absolute Nucleated RBC Total Counted Band Neuts % (Manual) (0 - 10) % Abnorm Lymph % (Manual) % Metamyelocytes % ( - 0) % Myelocytes % ( - 0) % Nucleated RBC % Neutrophils # (Manual) (1.5-6.6) 10^3/uL Lymphocytes # (Manual) (1.5-3.5) 10^3/uL Monocytes # (Manual) (0.0-1.0) 10^3/uL Eosinophils # (Manual) (0-0.7) 10^3/uL Basophils # (Manual) (0-0.1) 10^3/uL Differential Comment Platelet Estimate (NORMAL) RBC Morph Micro Appear (NORMAL) Bld Gas Analysis Time Sample Site ABG pH (7.35-7.45) ABG pCO2 (34-45) mmHg ABG pO2 (80-100) mmHg ABG HCO3 (22.0-26.0) mmol/L ABG Total CO2 (21.0-29.0) MMOL/L ABG O2 Saturation (94-98) % ABG Base Excess (-2.0-3.0) mmol/L Karlo Test VBG pH 7.166 L (7.31-7.41) Ionized Calcium 0.94 L (1.15-1.33) mmol/L Respiration Rate b/min O2 Delivery Device Vent Mode FiO2 Tidal Volume mL PEEP cmH2O Pressure Support Vent cmH2O Sodium (135-145) mmol/L Potassium (3.5-5.0) mmol/L Chloride (101-111) mmol/L Carbon Dioxide (21-32) mmol/L Anion Gap (6-13) BUN (6-20) mg/dL Creatinine (0.4-1.0) mg/dL Estimated GFR (MDRD) (>89) Glucose (70-100) mg/dL POC Whole Bld Glucose (70 - 100) mg/dL Glycated Hemoglobin 7.3 H (4.6-6.2) % Estim Average Glucose 163 H (70-100) Lactic Acid (0.5-2.2) mmol/L Calcium (8.5-10.3) mg/dL Magnesium (1.7-2.8) mg/dL Total Bilirubin (0.2-1.0) mg/dL AST (10-42) IU/L ALT (10-60) IU/L Alkaline Phosphatase (42-121) IU/L B-Natriuretic Peptide (5-100) pg/mL Total Protein (6.7-8.2) g/dL Albumin (3.2-5.5) g/dL Globulin (2.1-4.2) g/dL Albumin/Globulin Ratio (1.0-2.2) PTH Intact (12-88) pg/mL Nasal Screen MRSA (PCR) (NEGATIVE) Serum Ketones NEGATIVE (NEGATIVE) 09/25/18 09/25/18 Range/Units 20:25 20:17 WBC (4.8-10.8) x10^3/uL RBC (4.20-5.40) 10^6/uL Hgb (12.0-16.0) g/dL Hct (37.0-47.0) % MCV (81.0-99.0) fL MCH (27.0-31.0) pg MCHC (32.0-36.0) g/dL RDW (12.0-15.0) % Plt Count (130-450) 10^3/uL MPV (7.9-10.8) fL Neut # (Auto) Lymph # (Auto) [place] # (Auto) Eos # (Auto) Baso # (Auto) Absolute Nucleated RBC Total Counted Band Neuts % (Manual) (0 - 10) % Abnorm Lymph % (Manual) % Metamyelocytes % ( - 0) % Myelocytes % ( - 0) % Nucleated RBC % Neutrophils # (Manual) (1.5-6.6) 10^3/uL Lymphocytes # (Manual) (1.5-3.5) 10^3/uL Monocytes # (Manual) (0.0-1.0) 10^3/uL Eosinophils # (Manual) (0-0.7) 10^3/uL Basophils # (Manual) (0-0.1) 10^3/uL Differential Comment Platelet Estimate (NORMAL) RBC Morph Micro Appear (NORMAL) Bld Gas Analysis Time Sample Site ABG pH (7.35-7.45) ABG pCO2 (34-45) mmHg ABG pO2 (80-100) mmHg ABG HCO3 (22.0-26.0) mmol/L ABG Total CO2 (21.0-29.0) MMOL/L ABG O2 Saturation (94-98) % ABG Base Excess (-2.0-3.0) mmol/L Karlo Test VBG pH (7.31-7.41) Ionized Calcium (1.15-1.33) mmol/L Respiration Rate b/min O2 Delivery Device Vent Mode FiO2 Tidal Volume mL PEEP cmH2O Pressure Support Vent cmH2O Sodium (135-145) mmol/L Potassium (3.5-5.0) mmol/L Chloride (101-111) mmol/L Carbon Dioxide (21-32) mmol/L Anion Gap (6-13) BUN (6-20) mg/dL Creatinine (0.4-1.0) mg/dL Estimated GFR (MDRD) (>89) Glucose (70-100) mg/dL POC Whole Bld Glucose (70 - 100) mg/dL Glycated Hemoglobin (4.6-6.2) % Estim Average Glucose (70-100) Lactic Acid 2.4 H (0.5-2.2) mmol/L Calcium (8.5-10.3) mg/dL Magnesium (1.7-2.8) mg/dL Total Bilirubin (0.2-1.0) mg/dL AST (10-42) IU/L ALT (10-60) IU/L Alkaline Phosphatase (42-121) IU/L B-Natriuretic Peptide (5-100) pg/mL Total Protein (6.7-8.2) g/dL Albumin (3.2-5.5) g/dL Globulin (2.1-4.2) g/dL Albumin/Globulin Ratio (1.0-2.2) PTH Intact (12-88) pg/mL Nasal Screen MRSA (PCR) NEGATIVE (NEGATIVE) Serum Ketones (NEGATIVE) Sepsis Event Note (H) - Evaluation Current Stage of Sepsis: Septic shock Possible source of Sepsis: positive: GI tract/intra-abdominal - Sepsis Criteria Sepsis Criteria: Recorded Heart Rate greater than 90 bpm, Recorded Respiratory Rate greater than 20, WBC count greater than 12,000 or less than 4000, MAP less than 65 mmHg, Metabolic: lactate > 2 mmol/L, Hepatic: Bilirubin greater than 2mg/dl Assessment/Plan - Problem List (2) Sepsis Qualifiers: Sepsis type: sepsis due to unspecified organism Qualified Code(s): A41.9 - Sepsis, unspecified organism
[2018-09-26] MEDS ORDERED: CASPOFUNGIN 70 MG in SODIUM CHLORIDE 0.9% 250 ML IV ONE (17:15)
[2018-09-26 17:55] LABS: VBG PH 7.316 (7.31-7.41)
[2018-09-26] MEDS ORDERED: CALCIUM GLUCONATE 2,000 MG in SODIUM CHLORIDE 0.9% 100ML 100 ML IV SCH (19:00)
[2018-09-26] MEDS ORDERED: CALCIUM GLUCONATE 1,000 MG in SODIUM CHLORIDE 0.9% 50 ML IV SCH (19:00)
[2018-09-26] MEDS: CHLORHEXIDINE GLUCONATE 15 ML UDC PO SCH (20:53)
[2018-09-26 21:49] LABS: VBG PH 7.329 (7.31-7.41)
[2018-09-27] MEDS: INSULIN REGULAR HUMAN 100 UNIT/1 ML 10 ML MDV SUBQ SCH ×3 (00:30→18:59)
[2018-09-27] MEDS: SODIUM CHLORIDE FLUSH 0.9% 10 ML SYRINGE IVP SCH ×3 (01:04→17:34)
[2018-09-27 01:10] LABS: VBG PH 7.313 (7.31-7.41)
[2018-09-27] MEDS ORDERED: CALCIUM GLUCONATE 1,000 MG in SODIUM CHLORIDE 0.9% 50 ML IV ONE (03:54)
[2018-09-27] MEDS ORDERED: CALCIUM GLUCONATE 1000 MG/10 ML VIAL ONE (04:06)
[2018-09-27] MEDS: MEROPENEM 500 MG in SODIUM CHLORIDE 0.9% MINIBAG 100 ML IV SCH ×3 (04:16→20:08)
[2018-09-27] MEDS ORDERED: FUROSEMIDE 20 MG/2 ML VIAL IVP STA (05:22)
[2018-09-27] MEDS ORDERED: SODIUM BICARBONATE 8.4% 50 MEQ/50 ML VIAL ONE (05:27)
[2018-09-27 05:36] LABS: BASOPHILS % (AUTO) 0.4 %; EOSINOPHILS % (AUTO) 1.3 %; HGB - HEMOGLOBIN 10.4 g/dL (12.0-16.0); LYMPHOCYTES % (AUTO) 11.6 %; MEAN CORPUSCULAR HEMOGLOBIN 30.2 pg (27.0-31.0); MEAN CORPUSCULAR HGB CONC 32.7 g/dL (32.0-36.0); MEAN CORPUSCULAR VOLUME 92.4 fL (81.0-99.0); MONOCYTES % (AUTO) 3.5 %; NEUTROPHILS % (AUTO) 82.6 %; PLT - PLATELET COUNT 118 10^3/uL (130-450); RED BLOOD COUNT 3.44 10^6/uL (4.20-5.40); RED CELL DISTRIBUTION WIDTH 14.6 % (12.0-15.0); WHITE BLOOD COUNT 6.8 x10^3/uL (4.8-10.8)
[2018-09-27 05:40] LABS: ALBUMIN 1.6 g/dL (3.2-5.5); ALBUMIN/GLOBULIN RATIO 0.7 (1.0-2.2); BILIRUBIN,TOTAL 1.3 mg/dL (0.2-1.0); CALCIUM 7.3 mg/dL (8.5-10.3); CREATININE 2.3 mg/dL (0.4-1.0); MAGNESIUM 2.6 mg/dL (1.7-2.8)
[2018-09-27 06:00] LABS: ABNORMAL LYMPHS % (MANUAL) 0 %
[2018-09-27 06:50] LABS: BAND NEUTROPHILS % (MANUAL) 10 %; DIFFERENTIAL COMMENT MANUAL DIFFERENTIAL; EOSINOPHILS # (MANUAL) 0.1 10^3/uL (0-0.7); LYMPHOCYTES # (MANUAL) 0.7 10^3/uL (1.5-3.5); LYMPHOCYTES % (MANUAL) 10 %; MONOCYTES # (MANUAL) 0.2 10^3/uL (0.0-1.0); NEUTROPHILS # (MANUAL) 5.8 10^3/uL (1.5-6.6); NEUTROPHILS % (MANUAL) 76 %; PLATELET ESTIMATE, MANUAL DECREASED (<130,000) (NORMAL); RBC MORPHOLOGY (MULTIPLE) NORMAL APPEARANCE (NORMAL)
[2018-09-27] MEDS: SODIUM BICARBONATE 150 MEQ in DEXTROSE 5% 1,000 ML IV SCH ×2 (07:56→09:10)
[2018-09-27] MEDS: DEXTROSE 5%-0.9% NACL 1,000 ML IV SCH ×2 (08:31→18:56)
[2018-09-27] MEDS: PROPOFOL 1000 MG/100 ML 100 ML IV SCH ×2 (08:38→17:25)
[2018-09-27] MEDS: CHLORHEXIDINE GLUCONATE 15 ML UDC PO SCH ×2 (09:27→21:52)
[2018-09-27] MEDS: ENOXAPARIN 30 MG/0.3 ML SYRINGE SUBQ SCH (09:27)
[2018-09-27] MEDS: PANTOPRAZOLE 40 MG VIAL IVP SCH ×2 (09:27→21:52)
[2018-09-27] MEDS: CASPOFUNGIN 50 MG in SODIUM CHLORIDE 0.9% 100ML 100 ML IV SCH (10:28)
--- NOTE | 2018-09-27 11:22 | PROVIDER PROGRESS NOTE ---
Subjective - Prog Note Date Prog Note Date: 09/27/18 Prog Note Time: 12:32 - Subjective Subjective: Unable to obtain ROS due to patient mechanically ventilated and sedated at this time Objective - Vital Signs/Intake & Output Reviewed Vital Signs: Yes Vital Signs: Vital Signs Temp Pulse Pulse Resp BP Pulse Ox 09/27/18 10:52 37.3 C 104 H 17 110/70 100 09/27/18 09:50 100 16 105/62 100 09/27/18 09:00 100 15 108/64 99 09/27/18 08:52 100 16 99 09/27/18 08:37 102 H 09/27/18 08:00 37.1 C 105 H 16 100/64 99 Intake & Output: Intake & Output 09/24/18 09/25/18 09/26/18 09/27/18 23:59 23:59 23:59 23:59 Intake Total 4005.676 7573.797 2896.272 Output Total 206 760 555 Balance 3799.676 6813.797 2341.272 - Objective General Appearance: positive: No acute distress, Other (laying calmly supine in bed in NAD) Eyes Bilateral: positive: PERRL, Conjunctivae nml ENT: positive: No signs of dehydration (Oral mucosa moist) Neck: positive: Nml inspection, No JVD, Trachea midline, Other (triple lumen CV AD to R; No carotid bruits, no JVD) Respiratory: positive: No respiratory distress, Rhonchi, Other (symmetrical rise and fall of chest, no use of accessory muscles) Cardiovascular: positive: Regular rate & rhythm, No murmur, No gallop, Tachycardia, Other (No rub, mumur, gallops.) Peripheral Pulses: 1+ Dorsalis pedis (R), 1+ Dorsalis pedis (L), 2+ Radial (R), 2+ Radial (L) Abdomen: positive: Other (absent bowel tones; surgical site dressed with ABD pads, CDI, x2 ZULAY drains (R &L) with minimal serosanguenous output) Skin: positive: Color nml, No rash (total body edema 1-2+ to all extremeties. Upper > Lower), Warm, Dry Extremities: positive: Pedal edema, Other (bilateral upper extremety edema 2+) Neurologic/Psychiatric: positive: Other (Opens eyes briefly when called by name. No verbal response. Not tracking or following directions. GCS:) - Lab Results Fish Bones: 09/27/18 05:12 09/27/18 05:12 Other Labs: Lab Results x24hrs 09/27/18 09/27/18 09/27/18 Range/Units 06:05 05:12 05:12 WBC (4.8-10.8) x10^3/uL RBC (4.20-5.40) 10^6/uL Hgb (12.0-16.0) g/dL Hct (37.0-47.0) % MCV (81.0-99.0) fL MCH (27.0-31.0) pg MCHC (32.0-36.0) g/dL RDW (12.0-15.0) % Plt Count (130-450) 10^3/uL MPV (7.9-10.8) fL Neut # (Auto) Lymph # (Auto) [place] # (Auto) Eos # (Auto) Baso # (Auto) Absolute Nucleated RBC Total Counted Band Neuts % (Manual) (0 - 10) % Abnorm Lymph % (Manual) % Nucleated RBC % Neutrophils # (Manual) (1.5-6.6) 10^3/uL Lymphocytes # (Manual) (1.5-3.5) 10^3/uL Monocytes # (Manual) (0.0-1.0) 10^3/uL Eosinophils # (Manual) (0-0.7) 10^3/uL Basophils # (Manual) (0-0.1) 10^3/uL Differential Comment Platelet Estimate (NORMAL) RBC Morph Micro Appear (NORMAL) VBG pH (7.31-7.41) Ionized Calcium (1.15-1.33) mmol/L Sodium 135 (135-145) mmol/L Potassium 3.9 (3.5-5.0) mmol/L Chloride 102 (101-111) mmol/L Carbon Dioxide 23 (21-32) mmol/L Anion Gap 10.0 (6-13) BUN 43 H (6-20) mg/dL Creatinine 2.3 H (0.4-1.0) mg/dL Estimated GFR (MDRD) 21 L (>89) Glucose 204 H (70-100) mg/dL POC Whole Bld Glucose 176 H (70 - 100) mg/dL Lactic Acid 2.8 H (0.5-2.2) mmol/L Calcium 7.3 L (8.5-10.3) mg/dL Magnesium 2.6 (1.7-2.8) mg/dL Total Bilirubin 1.3 H (0.2-1.0) mg/dL AST 23 (10-42) IU/L ALT 18 (10-60) IU/L Alkaline Phosphatase 62 (42-121) IU/L Total Protein 4.0 L (6.7-8.2) g/dL Albumin 1.6 L (3.2-5.5) g/dL Globulin 2.4 (2.1-4.2) g/dL Albumin/Globulin Ratio 0.7 L (1.0-2.2) 25-OH Vitamin D Total (30-100) ng/mL 09/27/18 09/27/18 09/27/18 Range/Units 05:12 01:05 00:10 WBC 6.8 (4.8-10.8) x10^3/uL RBC 3.44 L (4.20-5.40) 10^6/uL Hgb 10.4 L (12.0-16.0) g/dL Hct 31.8 L (37.0-47.0) % MCV 92.4 (81.0-99.0) fL MCH 30.2 (27.0-31.0) pg MCHC 32.7 (32.0-36.0) g/dL RDW 14.6 (12.0-15.0) % Plt Count 118 L (130-450) 10^3/uL MPV 10.0 (7.9-10.8) fL Neut # (Auto) Not Reportable Lymph # (Auto) Not Reportable [place] # (Auto) Not Reportable Eos # (Auto) Not Reportable Baso # (Auto) Not Reportable Absolute Nucleated RBC Not Reportable Total Counted 100 Band Neuts % (Manual) 10 (0 - 10) % Abnorm Lymph % (Manual) 0 % Nucleated RBC % Not Reportable Neutrophils # (Manual) 5.8 (1.5-6.6) 10^3/uL Lymphocytes # (Manual) 0.7 L (1.5-3.5) 10^3/uL Monocytes # (Manual) 0.2 (0.0-1.0) 10^3/uL Eosinophils # (Manual) 0.1 (0-0.7) 10^3/uL Basophils # (Manual) 0.0 (0-0.1) 10^3/uL Differential Comment MANUAL DIFFERENTIAL Platelet Estimate DECREASED (<130,000) (NORMAL) RBC Morph Micro Appear NORMAL APPEARANCE (NORMAL) VBG pH 7.313 (7.31-7.41) Ionized Calcium 1.09 L (1.15-1.33) mmol/L Sodium (135-145) mmol/L Potassium (3.5-5.0) mmol/L Chloride (101-111) mmol/L Carbon Dioxide (21-32) mmol/L Anion Gap (6-13) BUN (6-20) mg/dL Creatinine (0.4-1.0) mg/dL Estimated GFR (MDRD) (>89) Glucose (70-100) mg/dL POC Whole Bld Glucose 180 H (70 - 100) mg/dL Lactic Acid (0.5-2.2) mmol/L Calcium (8.5-10.3) mg/dL Magnesium (1.7-2.8) mg/dL Total Bilirubin (0.2-1.0) mg/dL AST (10-42) IU/L ALT (10-60) IU/L Alkaline Phosphatase (42-121) IU/L Total Protein (6.7-8.2) g/dL Albumin (3.2-5.5) g/dL Globulin (2.1-4.2) g/dL Albumin/Globulin Ratio (1.0-2.2) 25-OH Vitamin D Total (30-100) ng/mL 09/26/18 09/26/18 09/26/18 Range/Units 21:40 18:11 17:00 WBC (4.8-10.8) x10^3/uL RBC (4.20-5.40) 10^6/uL Hgb (12.0-16.0) g/dL Hct (37.0-47.0) % MCV (81.0-99.0) fL MCH (27.0-31.0) pg MCHC (32.0-36.0) g/dL RDW (12.0-15.0) % Plt Count (130-450) 10^3/uL MPV (7.9-10.8) fL Neut # (Auto) Lymph # (Auto) [place] # (Auto) Eos # (Auto) Baso # (Auto) Absolute Nucleated RBC Total Counted Band Neuts % (Manual) (0 - 10) % Abnorm Lymph % (Manual) % Nucleated RBC % Neutrophils # (Manual) (1.5-6.6) 10^3/uL Lymphocytes # (Manual) (1.5-3.5) 10^3/uL Monocytes # (Manual) (0.0-1.0) 10^3/uL Eosinophils # (Manual) (0-0.7) 10^3/uL Basophils # (Manual) (0-0.1) 10^3/uL Differential Comment Platelet Estimate (NORMAL) RBC Morph Micro Appear (NORMAL) VBG pH 7.329 7.316 (7.31-7.41) Ionized Calcium 0.98 L 0.95 L (1.15-1.33) mmol/L Sodium (135-145) mmol/L Potassium (3.5-5.0) mmol/L Chloride (101-111) mmol/L Carbon Dioxide (21-32) mmol/L Anion Gap (6-13) BUN (6-20) mg/dL Creatinine (0.4-1.0) mg/dL Estimated GFR (MDRD) (>89) Glucose (70-100) mg/dL POC Whole Bld Glucose 196 H (70 - 100) mg/dL Lactic Acid (0.5-2.2) mmol/L Calcium (8.5-10.3) mg/dL Magnesium (1.7-2.8) mg/dL Total Bilirubin (0.2-1.0) mg/dL AST (10-42) IU/L ALT (10-60) IU/L Alkaline Phosphatase (42-121) IU/L Total Protein (6.7-8.2) g/dL Albumin (3.2-5.5) g/dL Globulin (2.1-4.2) g/dL Albumin/Globulin Ratio (1.0-2.2) 25-OH Vitamin D Total (30-100) ng/mL 06/27/19 06/27/19 06/27/19 Range/Units 16:03 16:03 12:05 WBC (4.8-10.8) x10^3/uL RBC (4.20-5.40) 10^6/uL Hgb (12.0-16.0) g/dL Hct (37.0-47.0) % MCV (81.0-99.0) fL MCH (27.0-31.0) pg MCHC (32.0-36.0) g/dL RDW (12.0-15.0) % Plt Count (130-450) 10^3/uL MPV (7.9-10.8) fL Neut # (Auto) Lymph # (Auto) [place] # (Auto) Eos # (Auto) Baso # (Auto) Absolute Nucleated RBC Total Counted Band Neuts % (Manual) (0 - 10) % Abnorm Lymph % (Manual) % Nucleated RBC % Neutrophils # (Manual) (1.5-6.6) 10^3/uL Lymphocytes # (Manual) (1.5-3.5) 10^3/uL Monocytes # (Manual) (0.0-1.0) 10^3/uL Eosinophils # (Manual) (0-0.7) 10^3/uL Basophils # (Manual) (0-0.1) 10^3/uL Differential Comment Platelet Estimate (NORMAL) RBC Morph Micro Appear (NORMAL) VBG pH (7.31-7.41) Ionized Calcium (1.15-1.33) mmol/L Sodium 134 L (135-145) mmol/L Potassium 4.4 (3.5-5.0) mmol/L Chloride 106 (101-111) mmol/L Carbon Dioxide 19 L (21-32) mmol/L Anion Gap 9.0 (6-13) BUN 41 H (6-20) mg/dL Creatinine 2.4 H (0.4-1.0) mg/dL Estimated GFR (MDRD) 20 L (>89) Glucose 261 H (70-100) mg/dL POC Whole Bld Glucose 287 H (70 - 100) mg/dL Lactic Acid 2.9 H (0.5-2.2) mmol/L Calcium 6.4 L* (8.5-10.3) mg/dL Magnesium (1.7-2.8) mg/dL Total Bilirubin (0.2-1.0) mg/dL AST (10-42) IU/L ALT (10-60) IU/L Alkaline Phosphatase (42-121) IU/L Total Protein (6.7-8.2) g/dL Albumin (3.2-5.5) g/dL Globulin (2.1-4.2) g/dL Albumin/Globulin Ratio (1.0-2.2) 25-OH Vitamin D Total (30-100) ng/mL 09/26/18 Range/Units 06:55 WBC (4.8-10.8) x10^3/uL RBC (4.20-5.40) 10^6/uL Hgb (12.0-16.0) g/dL Hct (37.0-47.0) % MCV (81.0-99.0) fL MCH (27.0-31.0) pg MCHC (32.0-36.0) g/dL RDW (12.0-15.0) % Plt Count (130-450) 10^3/uL MPV (7.9-10.8) fL Neut # (Auto) Lymph # (Auto) [place] # (Auto) Eos # (Auto) Baso # (Auto) Absolute Nucleated RBC Total Counted Band Neuts % (Manual) (0 - 10) % Abnorm Lymph % (Manual) % Nucleated RBC % Neutrophils # (Manual) (1.5-6.6) 10^3/uL Lymphocytes # (Manual) (1.5-3.5) 10^3/uL Monocytes # (Manual) (0.0-1.0) 10^3/uL Eosinophils # (Manual) (0-0.7) 10^3/uL Basophils # (Manual) (0-0.1) 10^3/uL Differential Comment Platelet Estimate (NORMAL) RBC Morph Micro Appear (NORMAL) VBG pH (7.31-7.41) Ionized Calcium (1.15-1.33) mmol/L Sodium (135-145) mmol/L Potassium (3.5-5.0) mmol/L Chloride (101-111) mmol/L Carbon Dioxide (21-32) mmol/L Anion Gap (6-13) BUN (6-20) mg/dL Creatinine (0.4-1.0) mg/dL Estimated GFR (MDRD) (>89) Glucose (70-100) mg/dL POC Whole Bld Glucose (70 - 100) mg/dL Lactic Acid (0.5-2.2) mmol/L Calcium (8.5-10.3) mg/dL Magnesium (1.7-2.8) mg/dL Total Bilirubin (0.2-1.0) mg/dL AST (10-42) IU/L ALT (10-60) IU/L Alkaline Phosphatase (42-121) IU/L Total Protein (6.7-8.2) g/dL Albumin (3.2-5.5) g/dL Globulin (2.1-4.2) g/dL Albumin/Globulin Ratio (1.0-2.2) 25-OH Vitamin D Total 26 L (30-100) ng/mL - Diagnostic Imaging Diagnostic Imaging Results: positive: Other (Echo performed 09/26: EF 60-65% with medium sized plueral effusion) Sepsis Event Note (H) - Evaluation Current Stage of Sepsis: Septic shock Possible source of Sepsis: positive: GI tract/intra-abdominal - Sepsis Criteria Sepsis Criteria: Recorded Heart Rate greater than 90 bpm, Recorded Respiratory Rate greater than 20, WBC count greater than 12,000 or less than 4000, MAP less than 65 mmHg, Metabolic: lactate > 2 mmol/L, Hepatic: Bilirubin greater than 2mg/dl Assessment/Plan - Problem List (1) Septic shock Impression: hypotension, acute kidney failure, oliguria> requiring pressors. Source of shock is perforated viscus on 09/25 of several hours duration before having to go to the OR. Plan: I have consulted with [facility] applications analyst service. They would like us to reduce her propofol to help with the hypotension. -Propofol has been weaned to 20mcg/kg/min & Levophed to 20mcg/min -Plan to add vasopressin -Remains on meropenem, vancomyocin, and caspofungin per GI consult recommendation (2) Acute respiratory failure with hypoxemia Impression: Vent settings and pressure settings reviewed. Propofol and levophed are slowly weaning (see above) ABX broadened to meropenem, vanc, and caspofungin [facility] consult recommends us to switch her to assist control or volume control. Tomorrow morning try a pressure support PEEP trial and try extubation. [facility] had recommended tht for today but I think she needs one more day. (3) Gastric ulcer with perforation Impression: Present on admission. Patient presented with 1 day of abdominal pain. Seen in outside facility where ultrasound was negative. Sent home. Returned to our emergency room and identified as having an acute abdomen. Taken emergently to the operating room with a repair of a Venkat patch. Purulent material found in belly with washout. x2 ZULAY drain sites to R and L abdomen with <20cc serosanguenous output per drain in 24hrs Plan: Protein pump inhibitor to continue at 40 mg twice daily Protonix Postoperative surgical management per surgery Because of site of perforation, followed applications analyst's recommendation of adding antifungal coverage and vanco. Qualifiers: Gastric ulcer chronicity: acute Qualified Code(s): K25.1 - Acute gastric ulcer with perforation (4) Type 2 diabetes mellitus with hyperglycemia, without long-term current use of insulin Impression: Glucose August 26: 183 Today 180, 176, 215 Plan:On sliding scale Novolin R. -Will add 5 of Lantus at night to make sure glucose stays close to below 150 as possible. (5) Lactic acidosis Impression: Due to sepsis. Patient is also on metformin. This may be contributing to her metabolic derangement. Lactic acid 2.8 this morning. Remains on bicard drip. Plan: Continue to trend lactic levels. Stop bicarb drip when lactic acid nml. (6) Hypocalcemia Impression: Low at 6.4 yesterday and repleted with calcium gluconate, up to 7.3 this am, still low but corrected calcium with MDcalc is 8.6. -repletion prn. (7) Oliguria Impression: due to renal failure from sepsis and organ failure. Crea has improved to 2.3 (from 3.4 on admit). Will continue to follow. 3rd spacing secondary to fluid resuscitation. Now producing ~50cc urine/hour . Will watch because she may go to high output nonoliguric. (8) Hypokalemia K 4.4 yesterday to 3.9 today. Will replete by adding KCl to maintainence fluids.
[2018-09-27] MEDS ORDERED: INSULIN REGULAR HUMAN 100 UNIT/1 ML 10 ML MDV SUBQ SCH (13:00)
--- NOTE | 2018-09-27 14:46 | PROVIDER PROGRESS NOTE ---
Subjective - Prog Note Date Prog Note Date: 09/27/18 Prog Note Time: 14:43 - Subjective Subjective: Patient remains intubated and sedated. Unable to obtain ROS. Gradual improvement in renal function over the last 24 hours. Lactic acid is no longer rising and, in fact, there is a slow but definite trend toward improvement. Remains on Levophed but no longer on Vasopressin. Current Medications - Current Medications Current Medications: Continues on Caspafungin, Merem, and Vanc. Blood cultures negative thus far. Urine culture = gram - rods. Objective - Vital Signs/Intake & Output Reviewed Vital Signs: Yes Vital Signs: Vital Signs Temp Pulse Pulse Resp BP Pulse Ox 09/27/18 14:00 97 15 112/67 100 09/27/18 13:30 100 09/27/18 13:00 99 16 111/63 100 09/27/18 12:05 100 09/27/18 12:00 101 H 16 107/66 100 09/27/18 10:52 37.3 C 104 H 17 110/70 100 Intake & Output: Intake & Output 09/24/18 09/25/18 09/26/18 09/27/18 23:59 23:59 23:59 23:59 Intake Total 4005.676 7573.797 3265.268 Output Total 206 760 745 Balance 3799.676 6813.797 2520.268 - Objective Eyes Bilateral: positive: Conjunctivae nml, No scleral icterus Cardiovascular: positive: Regular rate & rhythm Peripheral Pulses: 1+ Posterior tibialis (R), 1+ Posterior tibialis (L) Abdomen: positive: Other (Wound is clean. Packing changed today. No purulent drainage. No bowel sounds, Mildly distended. Bilateral drains with scant serous output.) - Lab Results Fish Bones: 09/27/18 05:12 09/27/18 05:12 Other Labs: Lab Results x24hrs 09/27/18 09/27/18 09/27/18 Range/Units 12:26 06:05 05:12 WBC (4.8-10.8) x10^3/uL RBC (4.20-5.40) 10^6/uL Hgb (12.0-16.0) g/dL Hct (37.0-47.0) % MCV (81.0-99.0) fL MCH (27.0-31.0) pg MCHC (32.0-36.0) g/dL RDW (12.0-15.0) % Plt Count (130-450) 10^3/uL MPV (7.9-10.8) fL Neut # (Auto) Lymph # (Auto) [place] # (Auto) Eos # (Auto) Baso # (Auto) Absolute Nucleated RBC Total Counted Band Neuts % (Manual) (0 - 10) % Abnorm Lymph % (Manual) % Nucleated RBC % Neutrophils # (Manual) (1.5-6.6) 10^3/uL Lymphocytes # (Manual) (1.5-3.5) 10^3/uL Monocytes # (Manual) (0.0-1.0) 10^3/uL Eosinophils # (Manual) (0-0.7) 10^3/uL Basophils # (Manual) (0-0.1) 10^3/uL Differential Comment Platelet Estimate (NORMAL) RBC Morph Micro Appear (NORMAL) VBG pH (7.31-7.41) Ionized Calcium (1.15-1.33) mmol/L Sodium (135-145) mmol/L Potassium (3.5-5.0) mmol/L Chloride (101-111) mmol/L Carbon Dioxide (21-32) mmol/L Anion Gap (6-13) BUN (6-20) mg/dL Creatinine (0.4-1.0) mg/dL Estimated GFR (MDRD) (>89) Glucose (70-100) mg/dL POC Whole Bld Glucose 215 H 176 H (70 - 100) mg/dL Lactic Acid 2.8 H (0.5-2.2) mmol/L Calcium (8.5-10.3) mg/dL Magnesium (1.7-2.8) mg/dL Total Bilirubin (0.2-1.0) mg/dL AST (10-42) IU/L ALT (10-60) IU/L Alkaline Phosphatase (42-121) IU/L Total Protein (6.7-8.2) g/dL Albumin (3.2-5.5) g/dL Globulin (2.1-4.2) g/dL Albumin/Globulin Ratio (1.0-2.2) 25-OH Vitamin D Total (30-100) ng/mL 09/27/18 09/27/18 09/27/18 Range/Units 05:12 05:12 01:05 WBC 6.8 (4.8-10.8) x10^3/uL RBC 3.44 L (4.20-5.40) 10^6/uL Hgb 10.4 L (12.0-16.0) g/dL Hct 31.8 L (37.0-47.0) % MCV 92.4 (81.0-99.0) fL MCH 30.2 (27.0-31.0) pg MCHC 32.7 (32.0-36.0) g/dL RDW 14.6 (12.0-15.0) % Plt Count 118 L (130-450) 10^3/uL MPV 10.0 (7.9-10.8) fL Neut # (Auto) Not Reportable Lymph # (Auto) Not Reportable [place] # (Auto) Not Reportable Eos # (Auto) Not Reportable Baso # (Auto) Not Reportable Absolute Nucleated RBC Not Reportable Total Counted 100 Band Neuts % (Manual) 10 (0 - 10) % Abnorm Lymph % (Manual) 0 % Nucleated RBC % Not Reportable Neutrophils # (Manual) 5.8 (1.5-6.6) 10^3/uL Lymphocytes # (Manual) 0.7 L (1.5-3.5) 10^3/uL Monocytes # (Manual) 0.2 (0.0-1.0) 10^3/uL Eosinophils # (Manual) 0.1 (0-0.7) 10^3/uL Basophils # (Manual) 0.0 (0-0.1) 10^3/uL Differential Comment MANUAL DIFFERENTIAL Platelet Estimate DECREASED (<130,000) (NORMAL) RBC Morph Micro Appear NORMAL APPEARANCE (NORMAL) VBG pH 7.313 (7.31-7.41) Ionized Calcium 1.09 L (1.15-1.33) mmol/L Sodium 135 (135-145) mmol/L Potassium 3.9 (3.5-5.0) mmol/L Chloride 102 (101-111) mmol/L Carbon Dioxide 23 (21-32) mmol/L Anion Gap 10.0 (6-13) BUN 43 H (6-20) mg/dL Creatinine 2.3 H (0.4-1.0) mg/dL Estimated GFR (MDRD) 21 L (>89) Glucose 204 H (70-100) mg/dL POC Whole Bld Glucose (70 - 100) mg/dL Lactic Acid (0.5-2.2) mmol/L Calcium 7.3 L (8.5-10.3) mg/dL Magnesium 2.6 (1.7-2.8) mg/dL Total Bilirubin 1.3 H (0.2-1.0) mg/dL AST 23 (10-42) IU/L ALT 18 (10-60) IU/L Alkaline Phosphatase 62 (42-121) IU/L Total Protein 4.0 L (6.7-8.2) g/dL Albumin 1.6 L (3.2-5.5) g/dL Globulin 2.4 (2.1-4.2) g/dL Albumin/Globulin Ratio 0.7 L (1.0-2.2) 25-OH Vitamin D Total (30-100) ng/mL 09/27/18 09/26/18 09/26/18 Range/Units 00:10 21:40 18:11 WBC (4.8-10.8) x10^3/uL RBC (4.20-5.40) 10^6/uL Hgb (12.0-16.0) g/dL Hct (37.0-47.0) % MCV (81.0-99.0) fL MCH (27.0-31.0) pg MCHC (32.0-36.0) g/dL RDW (12.0-15.0) % Plt Count (130-450) 10^3/uL MPV (7.9-10.8) fL Neut # (Auto) Lymph # (Auto) [place] # (Auto) Eos # (Auto) Baso # (Auto) Absolute Nucleated RBC Total Counted Band Neuts % (Manual) (0 - 10) % Abnorm Lymph % (Manual) % Nucleated RBC % Neutrophils # (Manual) (1.5-6.6) 10^3/uL Lymphocytes # (Manual) (1.5-3.5) 10^3/uL Monocytes # (Manual) (0.0-1.0) 10^3/uL Eosinophils # (Manual) (0-0.7) 10^3/uL Basophils # (Manual) (0-0.1) 10^3/uL Differential Comment Platelet Estimate (NORMAL) RBC Morph Micro Appear (NORMAL) VBG pH 7.329 (7.31-7.41) Ionized Calcium 0.98 L (1.15-1.33) mmol/L Sodium (135-145) mmol/L Potassium (3.5-5.0) mmol/L Chloride (101-111) mmol/L Carbon Dioxide (21-32) mmol/L Anion Gap (6-13) BUN (6-20) mg/dL Creatinine (0.4-1.0) mg/dL Estimated GFR (MDRD) (>89) Glucose (70-100) mg/dL POC Whole Bld Glucose 180 H 196 H (70 - 100) mg/dL Lactic Acid (0.5-2.2) mmol/L Calcium (8.5-10.3) mg/dL Magnesium (1.7-2.8) mg/dL Total Bilirubin (0.2-1.0) mg/dL AST (10-42) IU/L ALT (10-60) IU/L Alkaline Phosphatase (42-121) IU/L Total Protein (6.7-8.2) g/dL Albumin (3.2-5.5) g/dL Globulin (2.1-4.2) g/dL Albumin/Globulin Ratio (1.0-2.2) 25-OH Vitamin D Total (30-100) ng/mL 09/26/18 09/26/18 09/26/18 Range/Units 17:00 16:03 16:03 WBC (4.8-10.8) x10^3/uL RBC (4.20-5.40) 10^6/uL Hgb (12.0-16.0) g/dL Hct (37.0-47.0) % MCV (81.0-99.0) fL MCH (27.0-31.0) pg MCHC (32.0-36.0) g/dL RDW (12.0-15.0) % Plt Count (130-450) 10^3/uL MPV (7.9-10.8) fL Neut # (Auto) Lymph # (Auto) [place] # (Auto) Eos # (Auto) Baso # (Auto) Absolute Nucleated RBC Total Counted Band Neuts % (Manual) (0 - 10) % Abnorm Lymph % (Manual) % Nucleated RBC % Neutrophils # (Manual) (1.5-6.6) 10^3/uL Lymphocytes # (Manual) (1.5-3.5) 10^3/uL Monocytes # (Manual) (0.0-1.0) 10^3/uL Eosinophils # (Manual) (0-0.7) 10^3/uL Basophils # (Manual) (0-0.1) 10^3/uL Differential Comment Platelet Estimate (NORMAL) RBC Morph Micro Appear (NORMAL) VBG pH 7.316 (7.31-7.41) Ionized Calcium 0.95 L (1.15-1.33) mmol/L Sodium 134 L (135-145) mmol/L Potassium 4.4 (3.5-5.0) mmol/L Chloride 106 (101-111) mmol/L Carbon Dioxide 19 L (21-32) mmol/L Anion Gap 9.0 (6-13) BUN 41 H (6-20) mg/dL Creatinine 2.4 H (0.4-1.0) mg/dL Estimated GFR (MDRD) 20 L (>89) Glucose 261 H (70-100) mg/dL POC Whole Bld Glucose (70 - 100) mg/dL Lactic Acid 2.9 H (0.5-2.2) mmol/L Calcium 6.4 L* (8.5-10.3) mg/dL Magnesium (1.7-2.8) mg/dL Total Bilirubin (0.2-1.0) mg/dL AST (10-42) IU/L ALT (10-60) IU/L Alkaline Phosphatase (42-121) IU/L Total Protein (6.7-8.2) g/dL Albumin (3.2-5.5) g/dL Globulin (2.1-4.2) g/dL Albumin/Globulin Ratio (1.0-2.2) 25-OH Vitamin D Total (30-100) ng/mL 09/26/18 Range/Units 06:55 WBC (4.8-10.8) x10^3/uL RBC (4.20-5.40) 10^6/uL Hgb (12.0-16.0) g/dL Hct (37.0-47.0) % MCV (81.0-99.0) fL MCH (27.0-31.0) pg MCHC (32.0-36.0) g/dL RDW (12.0-15.0) % Plt Count (130-450) 10^3/uL MPV (7.9-10.8) fL Neut # (Auto) Lymph # (Auto) [place] # (Auto) Eos # (Auto) Baso # (Auto) Absolute Nucleated RBC Total Counted Band Neuts % (Manual) (0 - 10) % Abnorm Lymph % (Manual) % Nucleated RBC % Neutrophils # (Manual) (1.5-6.6) 10^3/uL Lymphocytes # (Manual) (1.5-3.5) 10^3/uL Monocytes # (Manual) (0.0-1.0) 10^3/uL Eosinophils # (Manual) (0-0.7) 10^3/uL Basophils # (Manual) (0-0.1) 10^3/uL Differential Comment Platelet Estimate (NORMAL) RBC Morph Micro Appear (NORMAL) VBG pH (7.31-7.41) Ionized Calcium (1.15-1.33) mmol/L Sodium (135-145) mmol/L Potassium (3.5-5.0) mmol/L Chloride (101-111) mmol/L Carbon Dioxide (21-32) mmol/L Anion Gap (6-13) BUN (6-20) mg/dL Creatinine (0.4-1.0) mg/dL Estimated GFR (MDRD) (>89) Glucose (70-100) mg/dL POC Whole Bld Glucose (70 - 100) mg/dL Lactic Acid (0.5-2.2) mmol/L Calcium (8.5-10.3) mg/dL Magnesium (1.7-2.8) mg/dL Total Bilirubin (0.2-1.0) mg/dL AST (10-42) IU/L ALT (10-60) IU/L Alkaline Phosphatase (42-121) IU/L Total Protein (6.7-8.2) g/dL Albumin (3.2-5.5) g/dL Globulin (2.1-4.2) g/dL Albumin/Globulin Ratio (1.0-2.2) 25-OH Vitamin D Total 26 L (30-100) ng/mL Sepsis Event Note (H) - Evaluation Current Stage of Sepsis: Septic shock Possible source of Sepsis: positive: GI tract/intra-abdominal - Sepsis Criteria Sepsis Criteria: Recorded Heart Rate greater than 90 bpm, Recorded Respiratory Rate greater than 20, WBC count greater than 12,000 or less than 4000, MAP less than 65 mmHg, Metabolic: lactate > 2 mmol/L, Hepatic: Bilirubin greater than 2mg/dl Assessment/Plan - Problem List (1) Perforated bowel Impression: POD #2 after Exploratory Laparotomy for perforated pyloric channel ulcer. No current evidence of leak. Patient remains gravely ill but us showing some encouraging signs. Very guardedly optimistic. Family has been updated. I spoke with the patient's daughter. No plans to transfer at this time. Appreciate Hospitalist assistance. Continue current care. (2) Sepsis Qualifiers: Sepsis type: sepsis due to unspecified organism Qualified Code(s): A41.9 - Sepsis, unspecified organism
[2018-09-27 18:11] LABS: ABG BASE EXCESS 0.1 mmol/L (-2.0-3.0); ABG HCO3 25.6 mmol/L (22.0-26.0); ABG OXYGEN SATURATION 97 % (94-98); ABG PCO2 45 mmHg (34-45); ABG PH 7.37 (7.35-7.45); ABG PO2 99 mmHg (80-100)
[2018-09-27] MEDS: TPN (CLINIMIX E 5/15) 2,000 ML with MULTIVITAMIN 10 ML, TRACE ELEMENTS V CONC 1 ML IV SCH ×3 (19:05)
[2018-09-27] MEDS ORDERED: INSULIN GLARGINE 300 UNIT/3 ML PEN SUBQ SCH (21:00)
[2018-09-28] MEDS: INSULIN REGULAR HUMAN 100 UNIT/1 ML 10 ML MDV SUBQ SCH ×4 (00:23→19:16)
[2018-09-28] MEDS: SODIUM CHLORIDE FLUSH 0.9% 10 ML SYRINGE IVP SCH ×3 (03:25→15:06)
[2018-09-28] MEDS: SODIUM CHLORIDE FLUSH 0.9% 10 ML SYRINGE IVP PRN ×3 (04:25→10:12)
[2018-09-28 04:34] LABS: BASOPHILS % (AUTO) 0.9 %; EOSINOPHILS % (AUTO) 3.1 %; HGB - HEMOGLOBIN 9.7 g/dL (12.0-16.0); LYMPHOCYTES % (AUTO) 10.8 %; MEAN CORPUSCULAR HEMOGLOBIN 30.5 pg (27.0-31.0); MEAN CORPUSCULAR HGB CONC 32.8 g/dL (32.0-36.0); MEAN CORPUSCULAR VOLUME 93.1 fL (81.0-99.0); MEAN PLATELET VOLUME 9.9 fL (7.9-10.8); MONOCYTES % (AUTO) 6.2 %; NEUTROPHILS % (AUTO) 78.3 %; PLT - PLATELET COUNT 104 10^3/uL (130-450); RED BLOOD COUNT 3.18 10^6/uL (4.20-5.40); RED CELL DISTRIBUTION WIDTH 14.3 % (12.0-15.0); WHITE BLOOD COUNT 6.7 x10^3/uL (4.8-10.8)
[2018-09-28 04:38] LABS: ABNORMAL LYMPHS % (MANUAL) 0 %
[2018-09-28 04:42] LABS: INR 1.1 (0.8-1.2); PT - PROTHROMBIN TIME 12.2 secs (9.9-12.6)
[2018-09-28] MEDS: MEROPENEM 500 MG in SODIUM CHLORIDE 0.9% MINIBAG 100 ML IV SCH ×3 (04:46→20:00)
[2018-09-28 04:49] LABS: ALBUMIN 1.4 g/dL (3.2-5.5); ALBUMIN/GLOBULIN RATIO 0.6 (1.0-2.2); CREATININE 2.1 mg/dL (0.4-1.0); MAGNESIUM 2.5 mg/dL (1.7-2.8); TOTAL PROTEIN 3.8 g/dL (6.7-8.2)
[2018-09-28 05:03] LABS: BAND NEUTROPHILS % (MANUAL) 12 %; EOSINOPHILS # (MANUAL) 0.1 10^3/uL (0-0.7); LYMPHOCYTES # (MANUAL) 0.7 10^3/uL (1.5-3.5); LYMPHOCYTES % (MANUAL) 11 %; MONOCYTES # (MANUAL) 0.1 10^3/uL (0.0-1.0); NEUTROPHILS # (MANUAL) 5.8 10^3/uL (1.5-6.6); NEUTROPHILS % (MANUAL) 74 %; RBC MORPHOLOGY (MULTIPLE) NORMAL APPEARANCE (NORMAL)
[2018-09-28] MEDS: PROPOFOL 1000 MG/100 ML 100 ML IV SCH ×2 (05:03→14:18)
[2018-09-28 05:04] LABS: DIFFERENTIAL COMMENT MANUAL DIFFERENTIAL; PLATELET ESTIMATE, MANUAL DECREASED (<130,000) (NORMAL)
[2018-09-28] MEDS: DEXTROSE 5%-0.9% NACL 1,000 ML IV SCH ×3 (07:06→19:09)
[2018-09-28] MEDS: VANCOMYCIN INJ 1 GM in SODIUM CHLORIDE 0.9% 250 ML IV SCH (09:04)
[2018-09-28] MEDS: CHLORHEXIDINE GLUCONATE 15 ML UDC PO SCH ×2 (09:25→20:53)
[2018-09-28] MEDS: CASPOFUNGIN 50 MG in SODIUM CHLORIDE 0.9% 100ML 100 ML IV SCH (09:33)
[2018-09-28 09:35] LABS: ABG BASE EXCESS -1.6 mmol/L (-2.0-3.0); ABG HCO3 23.5 mmol/L (22.0-26.0); ABG OXYGEN SATURATION 98 % (94-98); ABG PCO2 41 mmHg (34-45); ABG PH 7.38 (7.35-7.45); ABG PO2 124 mmHg (80-100); ABG TCO2 24.8 MMOL/L (21.0-29.0)
[2018-09-28 09:36] LABS: ALLEN TEST POSITIVE
[2018-09-28] MEDS: PANTOPRAZOLE 40 MG VIAL IVP SCH ×2 (09:37→21:25)
[2018-09-28] MEDS: ENOXAPARIN 30 MG/0.3 ML SYRINGE SUBQ SCH (10:28)
--- NOTE | 2018-09-28 11:42 | PROVIDER PROGRESS NOTE ---
Progress Note The patient remains mechanically ventilated and sedated.There have been some encouraging signs over night. Urine output is good and Levophed requirement has decreased. Ocygenation has improved as well though the ABG was done at 60%FIO2. Abdomen remains quiet. Wound is clean. Drainage is scant and serous now. No evidence for anastamotic leak. A/P POD #3 after exploratory laparotomy for perforated pyloric channel ulcer with sepsis. Prognosis is improving
--- NOTE | 2018-09-28 13:36 | PROVIDER PROGRESS NOTE ---
Subjective - Prog Note Date Prog Note Date: 09/28/18 Prog Note Time: 14:14 - Subjective Subjective: We tried weaning from vent today. She did not respond well and asked that she staying intubated. Pulmonary inspiratory pressures for the ventilator have gone up as high as 40. But her FiO2 requirement is staying stable. TPN started yesterday. Glucose is elevated with her Lantus 5 units. She is 1 80-200. She is also on sliding scale. She is slowly being weaned off of her levo fed. She went as high as 22 mcg yesterday, is down to 8 mcg this morning and we hope to have her off by this afternoon. Urine output has been holding steady. Current Medications - Current Medications Current Medications: Active Medications Chlorhexidine Gluconate (Peridex) 15 ml PO BID [facility] Last Admin: 09/28/18 09:25 Dose: 15 ml Enoxaparin Sodium (Lovenox) 30 mg SUBQ DAILY [facility] Last Admin: 09/28/18 10:28 Dose: 30 mg Fentanyl (Fentanyl) 25 mcg IVP Q2HR PRN PRN Reason: PAIN Hydromorphone HCl (Dilaudid V[facility] Technician 20mg/100ml) 20 mg IV PRN PRN; Protocol PRN Reason: Abdominal Pain Last Admin: 09/26/18 10:59 Dose: 20 mg Meropenem 500 mg/ Sodium (Chloride) 100 mls @ 200 mls/hr IV Q8H [facility] Last Admin: 09/28/18 12:45 Dose: 200 mls/hr Dextrose/Sodium Chloride (D5ns) 1,000 mls @ 100 mls/hr IV .Q10H [facility] Last Infusion: 09/28/18 11:47 Dose: 100 mls/hr Sodium Chloride (Normal Saline 0.9%) 1,000 mls @ 500 mls/hr IV .Q2H PRN PRN Reason: MAINTAIN MAP>65 Last Infusion: 09/26/18 05:00 Dose: Infused Norepinephrine Bitartrate 8 mg (/ Dextrose) 250 mls @ 41.25 mls/hr IV .Q6H4M [facility]; Protocol Last Admin: 09/28/18 13:47 Dose: Not Given Caspofungin 50 mg/ Sodium (Chloride) 100 mls @ 100 mls/hr IV DAILY [facility] Last Infusion: 09/28/18 10:33 Dose: Infused Vancomycin HCl 1 gm/ Sodium (Chloride) 250 mls @ 167 mls/hr IV Q36H [facility] Last Infusion: 09/28/18 10:53 Dose: Infused Propofol (Diprivan) 100 mls @ 4.355 mls/hr IV .[id number] [facility]; Protocol Last Titration: 09/28/18 11:46 Dose: 20 mcg/kg/min, 8.709 mls/hr Multivitamins 10 ml/ Chromium/Copper/Manganese/Seleni/Zn 1 ml/ Amino Ac/Electrol/Dextrose /Calcium 2,011 mls @ 83 mls/hr IV Q24H [facility]; Protocol Last Infusion: 09/28/18 08:09 Dose: 83 mls/hr Fat Emulsion Intravenous (Intralipid 20%) 250 mls @ 21 mls/hr IV Q24H [facility] Insulin Glargine (Lantus Solostar) 5 unit SUBQ QPM [facility] Last Admin: 09/27/18 21:52 Dose: 5 unit Insulin Human Regular (Novolin R) 3 - 11 unit SUBQ Q6HR [facility]; Protocol Last Admin: 09/28/18 12:56 Dose: 7 unit Lorazepam (Ativan Inj (Vial)) 0.5 mg IVP Q2H PRN PRN Reason: Anxiety Ondansetron HCl (Zofran Inj) 4 mg IVP Q6HR PRN PRN Reason: Nausea / Vomiting Pantoprazole Sodium (Protonix) 40 mg IVP BID [facility] Last Admin: 09/28/18 09:37 Dose: 40 mg Sodium Chloride (Normal Saline Flush 0.9%) 10 ml IVP 0100,0900,1700 [facility] Last Admin: 09/28/18 11:48 Dose: Not Given Sodium Chloride (Normal Saline Flush 0.9%) 10 ml IVP PRN PRN PRN Reason: NEEDED PER PROVIDER ORDERS Last Admin: 09/28/18 10:12 Dose: 10 ml Amlodipine Besylate [Norvasc] 10 mg PO DAILY 09/25/18 Canagliflozin [Invokana] 100 mg PO DAILY 09/25/18 Glipizide [Glucotrol] 10 mg PO DAILYWM 09/25/18 HYDROcod/ACETAM 5/325 [[place] 5/325] 1 - 2 tab PO Q6H PRN 09/25/18 Metformin HCl [Glucophage] 1,000 mg PO BIDWM 09/25/18 Omeprazole 20 mg PO QDAC 09/25/18 Ondansetron Odt [Zofran Odt] 4 mg PO Q6H PRN 09/25/18 Objective - Vital Signs/Intake & Output Reviewed Vital Signs: Yes Vital Signs: Vital Signs Temp Pulse Pulse Resp BP BP Pulse Ox 09/28/18 13:00 95 16 100/56 L 104/56 L 99 09/28/18 12:00 97 16 101/59 L 104/55 L 98 09/28/18 11:00 99 15 129/67 137/67 H 98 09/28/18 10:56 37.6 C H 09/28/18 10:09 88 09/28/18 10:00 89 15 104/61 111/65 96 Intake & Output: Intake & Output 09/25/18 09/26/18 09/27/18 09/28/18 23:59 23:59 23:59 23:59 Intake Total 4005.676 7573.797 5639.893 3148.048 Output Total 086 852 7824 993 Balance 3799.676 6813.797 4259.893 2155.048 - Objective General Appearance: positive: Other (Eyes open when sedation is lowered. Response to her family's voice. Still remains intubated and we are using propofol, fentanyl, and Dilaudid.) Eyes Bilateral: positive: PERRL Neck: positive: No JVD. negative: Stiff neck, Carotid bruit Respiratory: positive: Chest non-tender. negative: Wheezes, Rales, Rhonchi Cardiovascular: positive: Regular rate & rhythm. negative: Gallop/S4, Friction rub Abdomen: positive: Other (Incision covered by bandage. No bowel sounds yet. Still slightly bloated and distended belly.) Skin: positive: Other (Anasarca.) Extremities: positive: Pedal edema Neurologic/Psychiatric: positive: Other (Intubated, sedated, opens eyes to voice, in restraints) - Lab Results Fish Bones: 09/28/18 04:13 09/28/18 04:13 Other Labs: Lab Results x24hrs 09/28/18 09/28/18 09/28/18 Range/Units 12:09 06:05 04:25 WBC (4.8-10.8) x10^3/uL RBC (4.20-5.40) 10^6/uL Hgb (12.0-16.0) g/dL Hct (37.0-47.0) % MCV (81.0-99.0) fL MCH (27.0-31.0) pg MCHC (32.0-36.0) g/dL RDW (12.0-15.0) % Plt Count (130-450) 10^3/uL MPV (7.9-10.8) fL Neut # (Auto) Lymph # (Auto) [place] # (Auto) Eos # (Auto) Baso # (Auto) Absolute Nucleated RBC Total Counted Band Neuts % (Manual) (0 - 10) % Abnorm Lymph % (Manual) % Nucleated RBC % Neutrophils # (Manual) (1.5-6.6) 10^3/uL Lymphocytes # (Manual) (1.5-3.5) 10^3/uL Monocytes # (Manual) (0.0-1.0) 10^3/uL Eosinophils # (Manual) (0-0.7) 10^3/uL Basophils # (Manual) (0-0.1) 10^3/uL Differential Comment Platelet Estimate (NORMAL) RBC Morph Micro Appear (NORMAL) PT (9.9-12.6) secs INR (0.8-1.2) Bld Gas Analysis Time 0425 Sample Site A-LINE ABG pH 7.38 (7.35-7.45) ABG pCO2 41 (34-45) mmHg ABG pO2 124 H (80-100) mmHg ABG HCO3 23.5 (22.0-26.0) mmol/L ABG Total CO2 24.8 (21.0-29.0) MMOL/L ABG O2 Saturation 98 (94-98) % ABG Base Excess -1.6 (-2.0-3.0) mmol/L Karlo Test POSITIVE Respiration Rate 16 b/min O2 Delivery Device VENTILATOR Vent Mode ACCESSED/CONTROL FiO2 60.00 Tidal Volume mL PEEP 5 cmH2O Sodium (135-145) mmol/L Potassium (3.5-5.0) mmol/L Chloride (101-111) mmol/L Carbon Dioxide (21-32) mmol/L Anion Gap (6-13) BUN (6-20) mg/dL Creatinine (0.4-1.0) mg/dL Estimated GFR (MDRD) (>89) Glucose (70-100) mg/dL POC Whole Bld Glucose 231 H 187 H (70 - 100) mg/dL Calcium (8.5-10.3) mg/dL Phosphorus (2.5-4.6) mg/dL Magnesium (1.7-2.8) mg/dL Total Bilirubin (0.2-1.0) mg/dL AST (10-42) IU/L ALT (10-60) IU/L Alkaline Phosphatase (42-121) IU/L Total Protein (6.7-8.2) g/dL Albumin (3.2-5.5) g/dL Globulin (2.1-4.2) g/dL Albumin/Globulin Ratio (1.0-2.2) Prealbumin (18-45) mg/dL Triglycerides ( - 149) mg/dL 09/28/18 09/28/18 09/28/18 Range/Units 04:13 04:13 04:13 WBC 6.7 (4.8-10.8) x10^3/uL RBC 3.18 L (4.20-5.40) 10^6/uL Hgb 9.7 L (12.0-16.0) g/dL Hct 29.6 L (37.0-47.0) % MCV 93.1 (81.0-99.0) fL MCH 30.5 (27.0-31.0) pg MCHC 32.8 (32.0-36.0) g/dL RDW 14.3 (12.0-15.0) % Plt Count 104 L (130-450) 10^3/uL MPV 9.9 (7.9-10.8) fL Neut # (Auto) Not Reportable Lymph # (Auto) Not Reportable [place] # (Auto) Not Reportable Eos # (Auto) Not Reportable Baso # (Auto) Not Reportable Absolute Nucleated RBC Not Reportable Total Counted 100 Band Neuts % (Manual) 12 H (0 - 10) % Abnorm Lymph % (Manual) 0 % Nucleated RBC % Not Reportable Neutrophils # (Manual) 5.8 (1.5-6.6) 10^3/uL Lymphocytes # (Manual) 0.7 L (1.5-3.5) 10^3/uL Monocytes # (Manual) 0.1 (0.0-1.0) 10^3/uL Eosinophils # (Manual) 0.1 (0-0.7) 10^3/uL Basophils # (Manual) 0.0 (0-0.1) 10^3/uL Differential Comment MANUAL DIFFERENTIAL Platelet Estimate DECREASED (<130,000) (NORMAL) RBC Morph Micro Appear NORMAL APPEARANCE (NORMAL) PT 12.2 (9.9-12.6) secs INR 1.1 (0.8-1.2) Bld Gas Analysis Time Sample Site ABG pH (7.35-7.45) ABG pCO2 (34-45) mmHg ABG pO2 (80-100) mmHg ABG HCO3 (22.0-26.0) mmol/L ABG Total CO2 (21.0-29.0) MMOL/L ABG O2 Saturation (94-98) % ABG Base Excess (-2.0-3.0) mmol/L Karlo Test Respiration Rate b/min O2 Delivery Device Vent Mode FiO2 Tidal Volume mL PEEP cmH2O Sodium 137 (135-145) mmol/L Potassium 3.6 (3.5-5.0) mmol/L Chloride 103 (101-111) mmol/L Carbon Dioxide 27 (21-32) mmol/L Anion Gap 7.0 (6-13) BUN 37 H (6-20) mg/dL Creatinine 2.1 H (0.4-1.0) mg/dL Estimated GFR (MDRD) 23 L (>89) Glucose 244 H (70-100) mg/dL POC Whole Bld Glucose (70 - 100) mg/dL Calcium 7.0 L (8.5-10.3) mg/dL Phosphorus 3.0 (2.5-4.6) mg/dL Magnesium 2.5 (1.7-2.8) mg/dL Total Bilirubin 1.0 (0.2-1.0) mg/dL AST 15 (10-42) IU/L ALT 16 (10-60) IU/L Alkaline Phosphatase 118 (42-121) IU/L Total Protein 3.8 L (6.7-8.2) g/dL Albumin 1.4 L (3.2-5.5) g/dL Globulin 2.4 (2.1-4.2) g/dL Albumin/Globulin Ratio 0.6 L (1.0-2.2) Prealbumin 3 L (18-45) mg/dL Triglycerides 105 ( - 149) mg/dL 09/27/18 09/27/18 09/27/18 Range/Units 23:54 18:02 18:00 WBC (4.8-10.8) x10^3/uL RBC (4.20-5.40) 10^6/uL Hgb (12.0-16.0) g/dL Hct (37.0-47.0) % MCV (81.0-99.0) fL MCH (27.0-31.0) pg MCHC (32.0-36.0) g/dL RDW (12.0-15.0) % Plt Count (130-450) 10^3/uL MPV (7.9-10.8) fL Neut # (Auto) Lymph # (Auto) [place] # (Auto) Eos # (Auto) Baso # (Auto) Absolute Nucleated RBC Total Counted Band Neuts % (Manual) (0 - 10) % Abnorm Lymph % (Manual) % Nucleated RBC % Neutrophils # (Manual) (1.5-6.6) 10^3/uL Lymphocytes # (Manual) (1.5-3.5) 10^3/uL Monocytes # (Manual) (0.0-1.0) 10^3/uL Eosinophils # (Manual) (0-0.7) 10^3/uL Basophils # (Manual) (0-0.1) 10^3/uL Differential Comment Platelet Estimate (NORMAL) RBC Morph Micro Appear (NORMAL) PT (9.9-12.6) secs INR (0.8-1.2) Bld Gas Analysis Time 1810 Sample Site A-LINE ABG pH 7.37 (7.35-7.45) ABG pCO2 45 (34-45) mmHg ABG pO2 99 (80-100) mmHg ABG HCO3 25.6 (22.0-26.0) mmol/L ABG Total CO2 27.0 (21.0-29.0) MMOL/L ABG O2 Saturation 97 (94-98) % ABG Base Excess 0.1 (-2.0-3.0) mmol/L Karlo Test Respiration Rate 16 b/min O2 Delivery Device VENTILATOR Vent Mode ACCESSED/CONTROL FiO2 60.00 Tidal Volume 400 mL PEEP cmH2O Sodium (135-145) mmol/L Potassium (3.5-5.0) mmol/L Chloride (101-111) mmol/L Carbon Dioxide (21-32) mmol/L Anion Gap (6-13) BUN (6-20) mg/dL Creatinine (0.4-1.0) mg/dL Estimated GFR (MDRD) (>89) Glucose (70-100) mg/dL POC Whole Bld Glucose 186 H 212 H (70 - 100) mg/dL Calcium (8.5-10.3) mg/dL Phosphorus (2.5-4.6) mg/dL Magnesium (1.7-2.8) mg/dL Total Bilirubin (0.2-1.0) mg/dL AST (10-42) IU/L ALT (10-60) IU/L Alkaline Phosphatase (42-121) IU/L Total Protein (6.7-8.2) g/dL Albumin (3.2-5.5) g/dL Globulin (2.1-4.2) g/dL Albumin/Globulin Ratio (1.0-2.2) Prealbumin (18-45) mg/dL Triglycerides ( - 149) mg/dL Sepsis Event Note (H) - Evaluation Current Stage of Sepsis: Resolved Possible source of Sepsis: positive: GI tract/intra-abdominal - Sepsis Criteria Sepsis Criteria: Recorded Heart Rate greater than 90 bpm, Recorded Respiratory Rate greater than 20, WBC count greater than 12,000 or less than 4000, MAP less than 65 mmHg, Metabolic: lactate > 2 mmol/L, Hepatic: Bilirubin greater than 2mg/dl Assessment/Plan - Problem List (1) Acute respiratory failure with hypoxemia Impression: Impression: Vent settings and pressure settings reviewed. Blood gas last night with pH 7.37, PCO2 45, PO2 99, bicarb 25, base excess 0.1 Blood gas this morning is with a pH of 7.38, PCO2 41, PO2 124, bicarb 23.5, base excess -1.6. Off the levo fed this afternoon, still on propofol because on ventilator ABX broadened to meropenem Day #3, vanc Day #2, and caspofungin Day #2 [facility] consult recommended us to switch her to assist control or volume control and to try an extubate. this morning tried a pressure support PEEP trial but she didn't tolerate today. Check CXR today, will order. Check daily Will order Will attempt again tomorrow. (3) Gastric ulcer with perforation Impression: POD#3 Present on admission. Patient presented with 1 day of abdominal pain. Seen in outside facility where ultrasound was negative. Sent home. Returned to our emergency room and identified as having an acute abdomen. Taken emergently to the operating room with a repair of a Venkat patch. Purulent material found in belly with washout. x2 ZULAY drain sites to R and L abdomen with <20cc serosanguenous output per drain in 24hrs Plan: Protein pump inhibitor to continue at 40 mg twice daily Protonix Postoperative surgical management per surgery Because of site of perforation, followed edge finisher's recommendation of adding antifungal coverage and vanco. Qualifiers: Gastric ulcer chronicity: acute Qualified Code(s): K25.1 - Acute gastric ulcer with perforation (4) Type 2 diabetes mellitus with hyperglycemia, without long-term current use of insulin Impression: She is now on TPN as of last night Glucose September 25: 183 August 28: 180, 176, 216, 212, Today 186, 187, 231 Plan:On sliding scale Novolin R. On 5 of Lantus at night to make sure glucose stays close to below 150 as possible. Will increase to 10 units for tonight. (5) Lactic acidosis Impression: Due to sepsis. Patient is also on metformin. This may be contributing to her metabolic derangement. Lactic acid 2.8 morning of 09/27 Bicarb drip stopped 20:00 last night since blood gas with nml pH Plan: Continue to trend lactic levels. check in am., (6) Hypocalcemia Impression: Low at 6.4 on 09/26 and repleted with calcium gluconate, up to 7.3 09/27 still low but corrected calcium with MDcalc is 8.6. -repletion prn. (7) Oliguria Impression: due to renal failure from sepsis and organ failure. Crea has improved to 2.1 (from 3.4 on admit). Will continue to follow. 3rd spacing secondary to fluid resuscitation. Now producing ~50cc urine/hour . Will watch because she may go to high output nonoliguric. (8) Hypokalemia K 4.4 yesterday to 3.9 today. Will replete by adding KCl to maintainence fluids. (7) Septic shock Impression: Resolved. hypotension, acute kidney failure, oliguria> requiring pressors. Source of shock is perforated viscus on 09/25 of several hours duration before having to go to the OR. Plan: I have consulted with [facility] edge finisher service. They would like us to reduce her propofol to help with the hypotension. -Propofol has been weaned to 20mcg/kg/min & Levophed stopped this afternoon -No need to add vasopressin -Remains on meropenem, vancomyocin, and caspofungin per GI consult recommendation
--- NOTE | 2018-09-28 16:01 | XRAY Report ---
Reason: intubated Procedure Date: 09/28/2018 Accession Number: [id number] / [id number] Procedure: XR - Chest 1 View X-Ray CPT Code: 62897 FULL RESULT: EXAM: CHEST RADIOGRAPHY EXAM DATE: 09/28/2018 02:52 PM. CLINICAL HISTORY: Intubated. COMPARISON: CHEST 1 VIEW 09/26/2018 8:09 AM. TECHNIQUE: 1 view. FINDINGS: Lungs/Pleura: Increased opacification of the right mid and lower lung field. Opacification of the left hemidiaphragm and costophrenic angle, stable. No pneumothorax. Mediastinum: Within exam limitations, the cardiomediastinal contour is normal. Other: Endotracheal tube 2.5 cm above the jude. Enteric tube entering the stomach. Right IJ central venous catheter in the region of the cavoatrial junction IMPRESSION: Moderate right and small left pleural effusions, increased on the right when compared to 09/26/2018. RAD[facility]
[2018-09-28] MEDS ORDERED: MIN OIL/DIMETHICON/COCONUT OIL 92 GM TUBE TOP PRN (17:34)
[2018-09-28] MEDS: HYDROmorphone PCA 20MG/100ML IV PRN (18:36)
[2018-09-28] MEDS: TPN (CLINIMIX E 5/15) 2,000 ML with MULTIVITAMIN 10 ML, TRACE ELEMENTS V CONC 1 ML IV SCH ×3 (19:09)
[2018-09-28] MEDS ORDERED: INSULIN GLARGINE 300 UNIT/3 ML PEN SUBQ SCH (21:00)
[2018-09-28] MEDS: VASOPRESSIN 20 UNIT in DEXTROSE 5% 99 ML IV SCH (21:19)
[2018-09-28] MEDS: FUROSEMIDE 20 MG/2 ML VIAL IVP SCH (21:26)
[2018-09-29] MEDS: INSULIN REGULAR HUMAN 100 UNIT/1 ML 10 ML MDV SUBQ SCH ×4 (00:27→18:17)
[2018-09-29] MEDS: PROPOFOL 1000 MG/100 ML 100 ML IV SCH ×2 (00:41→09:28)
[2018-09-29 00:48] LABS: ABG HCO3 26.5 mmol/L (22.0-26.0); ABG PCO2 50 mmHg (34-45); ABG PH 7.34 (7.35-7.45); ABG PO2 91 mmHg (80-100)
[2018-09-29 00:49] LABS: ABG BASE EXCESS 0.3 mmol/L (-2.0-3.0); ABG OXYGEN SATURATION 97 % (94-98); ALLEN TEST POSITIVE
[2018-09-29 05:31] LABS: ABG PH 7.41 (7.35-7.45)
[2018-09-29 05:32] LABS: ABG BASE EXCESS 2.4 mmol/L (-2.0-3.0); ABG HCO3 27.3 mmol/L (22.0-26.0); ABG OXYGEN SATURATION 97 % (94-98); ABG PCO2 44 mmHg (34-45); ABG PO2 93 mmHg (80-100); ABG TCO2 28.7 MMOL/L (21.0-29.0)
[2018-09-29] MEDS: MEROPENEM 500 MG in SODIUM CHLORIDE 0.9% MINIBAG 100 ML IV SCH ×3 (05:59→20:41)
[2018-09-29] MEDS: SODIUM CHLORIDE FLUSH 0.9% 10 ML SYRINGE IVP SCH ×3 (05:59→18:50)
[2018-09-29] MEDS: FUROSEMIDE 20 MG/2 ML VIAL IVP SCH ×2 (06:02→15:30)
[2018-09-29] MEDS: DEXTROSE 5%-0.9% NACL 1,000 ML IV SCH (06:30)
--- NOTE | 2018-09-29 08:24 | XRAY Report ---
Reason: intubated Procedure Date: 09/29/2018 Accession Number: [id number] / [id number] Procedure: XR - Chest 1 View X-Ray CPT Code: 74404 FULL RESULT: EXAM: CHEST RADIOGRAPHY EXAM DATE: 09/29/2018 05:29 AM. CLINICAL HISTORY: Intubated. COMPARISON: CHEST 1 VIEW 09/28/2018 2:35 PM. TECHNIQUE: 1 view. FINDINGS: Lungs/Pleura: Low lung volumes. Bilateral interstitial opacities, central pulmonary vascular congestion, small to moderate bilateral pleural effusions persist. Interstitial opacity at the left midlung has slightly increased. No detectable pneumothorax. Mediastinum: Similar cardiomegaly. Other: ET tube terminates 3.7 cm above the jude. Enteric tube terminates below diaphragm, tip excluded from the [id number]. Right IJ catheter terminates in the proximal right atrium similar to prior. IMPRESSION: 1. Low lung volumes, bilateral interstitial opacities somewhat increased on the left, bilateral pleural effusions, persist. 2. Support tubes as noted above. RADIA
[2018-09-29] MEDS ORDERED: SODIUM CHLORIDE INHALATION 3 ML NEB ONE (08:43)
--- NOTE | 2018-09-29 08:59 | PROVIDER PROGRESS NOTE ---
Subjective - Prog Note Date Prog Note Date: 09/29/18 Prog Note Time: 12:09 - Subjective Subjective: We had been able to wean off all of her vasopressors, and had stopped her sedation to see how she did. She was doing well for a while yesterday but then blood pressure dropped when we resumed propofol in the face of agitation. So late in the afternoon we have resumed levo fed, vasopressin, as well as her propofol. Systolic was very good. Started mobilizing her body fluids and she increased her urine output. She is also on Lasix as well. We tried another attempt at weaning this morning and failed parameters. Current Medications - Current Medications Current Medications: Active Medications Chlorhexidine Gluconate (Peridex) 15 ml PO BID [facility] Last Admin: 09/29/18 10:26 Dose: 15 ml Enoxaparin Sodium (Lovenox) 30 mg SUBQ DAILY [facility] Last Admin: 09/29/18 09:11 Dose: Not Given Fentanyl (Fentanyl) 25 mcg IVP Q2HR PRN PRN Reason: PAIN Furosemide (Lasix Inj 20mg Vial) 20 mg IVP BIDDIURETIC [facility] Last Admin: 09/29/18 06:02 Dose: 20 mg Hydromorphone HCl (Dilaudid Psychology Intern 20mg/100ml) 20 mg IV PRN PRN; Protocol PRN Reason: Abdominal Pain Last Admin: 09/28/18 18:36 Dose: 20 mg Meropenem 500 mg/ Sodium (Chloride) 100 mls @ 200 mls/hr IV Q8H [facility] Last Admin: 09/29/18 11:54 Dose: 200 mls/hr Dextrose/Sodium Chloride (D5ns) 1,000 mls @ 100 mls/hr IV .Q10H [facility] Last Admin: 09/29/18 06:30 Dose: 100 mls/hr Sodium Chloride (Normal Saline 0.9%) 1,000 mls @ 500 mls/hr IV .Q2H PRN PRN Reason: MAINTAIN MAP>65 Last Infusion: 09/26/18 05:00 Dose: Infused Norepinephrine Bitartrate 8 mg (/ Dextrose) 250 mls @ 41.25 mls/hr IV .Q6H4M [facility]; Protocol Last Titration: 09/29/18 11:45 Dose: 2 mcg/min, 3.75 mls/hr Caspofungin 50 mg/ Sodium (Chloride) 100 mls @ 100 mls/hr IV DAILY [facility] Last Infusion: 09/29/18 10:35 Dose: Infused Vancomycin HCl 1 gm/ Sodium (Chloride) 250 mls @ 167 mls/hr IV Q36H [facility] Last Infusion: 09/28/18 10:53 Dose: Infused Propofol (Diprivan) 100 mls @ 4.355 mls/hr IV .[id number] [facility]; Protocol Last Titration: 09/29/18 11:15 Dose: 25 mcg/kg/min, 10.886 mls/hr Multivitamins 10 ml/ Chromium/Copper/Manganese/Seleni/Zn 1 ml/ Amino Ac/Electrol/Dextrose /Calcium 2,011 mls @ 83 mls/hr IV Q24H [facility]; Protocol Last Admin: 09/28/18 19:09 Dose: 83 mls/hr Fat Emulsion Intravenous (Intralipid 20%) 250 mls @ 21 mls/hr IV Q24H [facility] Vasopressin 20 unit/ Dextrose 100 mls @ 6 mls/hr IV .[id number] [facility]; Protocol Last Titration: 09/29/18 11:00 Dose: 0.01 unit/min, 3 mls/hr Insulin Glargine (Lantus Solostar) 12 unit SUBQ BID [facility] Last Admin: 09/29/18 09:17 Dose: 12 unit Insulin Human Regular (Novolin R) 3 - 11 unit SUBQ Q6HR [facility]; Protocol Last Admin: 09/29/18 12:05 Dose: 9 unit Lorazepam (Ativan Inj (Vial)) 0.5 mg IVP Q2H PRN PRN Reason: Anxiety Mineral Oil (Cavilon) 1 applic TOP PRN PRN PRN Reason: Skin Care Last Admin: 09/28/18 18:02 Dose: 1 applic Ondansetron HCl (Zofran Inj) 4 mg IVP Q6HR PRN PRN Reason: Nausea / Vomiting Pantoprazole Sodium (Protonix) 40 mg IVP BID [facility] Last Admin: 09/29/18 09:22 Dose: 40 mg Sodium Chloride (Normal Saline Flush 0.9%) 10 ml IVP 0100,0900,1700 [facility] Last Admin: 09/29/18 09:00 Dose: 10 ml Sodium Chloride (Normal Saline Flush 0.9%) 10 ml IVP PRN PRN PRN Reason: NEEDED PER PROVIDER ORDERS Last Admin: 09/28/18 10:12 Dose: 10 ml Amlodipine Besylate [Norvasc] 10 mg PO DAILY 09/25/18 Canagliflozin [Invokana] 100 mg PO DAILY 09/25/18 Glipizide [Glucotrol] 10 mg PO DAILYWM 09/25/18 HYDROcod/ACETAM 5/325 [[place] 5/325] 1 - 2 tab PO Q6H PRN 09/25/18 Metformin HCl [Glucophage] 1,000 mg PO BIDWM 09/25/18 Omeprazole 20 mg PO QDAC 09/25/18 Ondansetron Odt [Zofran Odt] 4 mg PO Q6H PRN 09/25/18 Objective - Vital Signs/Intake & Output Reviewed Vital Signs: Yes Vital Signs: Vital Signs x48h Temp Pulse Pulse Resp BP BP Pulse Ox 09/29/18 08:00 37.3 C 65 20 117/56 L 100 09/29/18 07:08 68 09/29/18 06:57 65 20 114/56 L 127/68 99 09/29/18 06:04 20 09/29/18 06:00 72 20 136/66 H 129/64 100 09/29/18 05:36 79 09/29/18 05:00 68 20 123/66 114/65 100 09/29/18 04:00 70 20 126/66 120/71 100 09/29/18 03:53 77 09/29/18 03:00 37.2 C 69 20 110/57 L 116/61 99 09/29/18 02:09 20 09/29/18 02:00 71 20 97/53 L 95/61 99 09/29/18 01:00 78 15 124/70 113/67 99 Intake & Output: Intake & Output 09/26/18 09/27/18 09/28/18 09/29/18 23:59 23:59 23:59 23:59 Intake Total 7573.797 5639.893 4903.470 1377.246 Output Total 760 1380 2413 2443 Balance 6813.797 4259.893 2490.867 -9815.754 - Objective General Appearance: positive: Other (Intubated, opens eyes to voice, occasional spontaneous movements requiringus to use soft restraints for safety) Eyes Bilateral: positive: PERRL Neck: positive: No JVD. negative: Stiff neck, Carotid bruit Respiratory: positive: Chest non-tender, Other (anteriorly and axillary sounds very, very quite but clear, no respiratory distress.Pulmonary expiratory press ures in the 20s now. Is on assist control. Change to SIMV to increase her work temporarily.). negative: Wheezes, Rales, Rhonchi Cardiovascular: positive: Regular rate & rhythm. negative: Gallop/S4, Friction rub Skin: positive: Warm, Dry Extremities: positive: Other (anasarca) Neurologic/Psychiatric: positive: Motor nml (with spontaneously withdrawal for noxious stimuli, all limbs) - Lab Results Fish Bones: 09/28/18 04:13 09/28/18 04:13 Other Labs: Lab Results x24hrs 09/29/18 09/29/18 09/29/18 Range/Units 06:10 05:15 04:29 Bld Gas Analysis Time 0529 Sample Site A-LINE ABG pH 7.41 (7.35-7.45) ABG pCO2 44 (34-45) mmHg ABG pO2 93 (80-100) mmHg ABG HCO3 27.3 H (22.0-26.0) mmol/L ABG Total CO2 28.7 (21.0-29.0) MMOL/L ABG O2 Saturation 97 (94-98) % ABG Base Excess 2.4 (-2.0-3.0) mmol/L Karlo Test NOT APPLICABLE Respiration Rate 20 b/min O2 Delivery Device VENTILATOR Vent Mode ACCESSED/CONTROL FiO2 40.00 Tidal Volume 400 mL PEEP 5 cmH2O POC Whole Bld Glucose 256 H (70 - 100) mg/dL Lactic Acid < 0.3 L (0.5-2.2) mmol/L 09/29/18 09/29/18 09/28/18 Range/Units 00:45 00:21 23:12 Bld Gas Analysis Time 0048 Sample Site A-LINE ABG pH 7.34 L (7.35-7.45) ABG pCO2 50 H (34-45) mmHg ABG pO2 91 (80-100) mmHg ABG HCO3 26.5 H (22.0-26.0) mmol/L ABG Total CO2 28.0 (21.0-29.0) MMOL/L ABG O2 Saturation 97 (94-98) % ABG Base Excess 0.3 (-2.0-3.0) mmol/L Karlo Test POSITIVE Respiration Rate 16 b/min O2 Delivery Device VENTILATOR Vent Mode ACCESSED/CONTROL FiO2 40.00 Tidal Volume 400 mL PEEP 5 cmH2O POC Whole Bld Glucose 270 H 234 H (70 - 100) mg/dL Lactic Acid (0.5-2.2) mmol/L 09/28/18 09/28/18 09/28/18 Range/Units 17:49 12:09 04:25 Bld Gas Analysis Time 0425 Sample Site A-LINE ABG pH 7.38 (7.35-7.45) ABG pCO2 41 (34-45) mmHg ABG pO2 124 H (80-100) mmHg ABG HCO3 23.5 (22.0-26.0) mmol/L ABG Total CO2 24.8 (21.0-29.0) MMOL/L ABG O2 Saturation 98 (94-98) % ABG Base Excess -1.6 (-2.0-3.0) mmol/L Karlo Test POSITIVE Respiration Rate 16 b/min O2 Delivery Device VENTILATOR Vent Mode ACCESSED/CONTROL FiO2 60.00 Tidal Volume mL PEEP 5 cmH2O POC Whole Bld Glucose 226 H 231 H (70 - 100) mg/dL Lactic Acid (0.5-2.2) mmol/L ABX Reporting Has patient been on IV antibiotics over the past 48 hours?: Yes Sepsis Event Note (H) - Evaluation Current Stage of Sepsis: Resolved Possible source of Sepsis: positive: GI tract/intra-abdominal - Sepsis Criteria Sepsis Criteria: Recorded Heart Rate greater than 90 bpm, Recorded Respiratory Rate greater than 20, WBC count greater than 12,000 or less than 4000, MAP less than 65 mmHg, Metabolic: lactate > 2 mmol/L, Hepatic: Bilirubin greater than 2mg/dl Assessment/Plan - Problem List (1) Acute respiratory failure with hypoxemia Impression: Vent settings and pressure settings reviewed. Between yesterday and today PIP are down to 20's from 40. Blood gas 7.41, PCO2 44, PO2 93, bicarb 27.3 and high. Base excess 2.4. Her base excess has been climbing. She was -1.6 on the , 0.3 at midnight last night, and now 2.4. was Off the levofed 09/28 afternoon,but dropped her pressure yesterday evening and resumed on levo and vasopression this time. ABX broadened to meropenem Day #4, vanc Day #3, and caspofungin Day #3 [facility] consult recommended us to switch her to assist control or volume control and to try an extubate. 09/28 a pressure support PEEP trial but she didn't tolerate today or 09/28. Try again tomorrow. CXR with interstitial changes L>R and stable pleural effusions. (3) Gastric ulcer with perforation Impression: POD#4 Present on admission. Patient presented with 1 day of abdominal pain. Seen in outside facility where ultrasound was negative. Sent home. Returned to our emergency room and identified as having an acute abdomen. Taken emergently to the operating room with a repair of a Venkat patch. Purulent material found in belly with washout. x2 ZULAY drain sites to R and L abdomen with <20cc serosanguenous output per drain in 24hrs Plan: Protein pump inhibitor to continue at 40 mg twice daily Protonix Postoperative surgical management per surgery Because of site of perforation, followed clarifier's recommendation of adding antifungal coverage and vanco. Qualifiers: Gastric ulcer chronicity: acute Qualified Code(s): K25.1 - Acute gastric ulcer with perforation (4) Type 2 diabetes mellitus with hyperglycemia, without long-term current use of insulin Impression: She is now on TPN as 09/27 pm Glucose September 25: 183 September 27: 180, 176, 216, 212, September 28: 186, 187, 231 because the was trending higer I increased Lantus from 5 to 10 units. Then fork lift technician last night increased to 12 units. Today: glucose 270, 256, 280 Plan:On sliding scale Novolin R. On 12 of Lantus at night and I will change to Lantus 8 bid. to make sure glucose stays close to below 150 as possible. (5) Lactic acidosis Impression: Due to sepsis. Patient is also on metformin. This may be contributing to her metabolic derangement. Lactic acid 2.8 morning of 09/27 Bicarb drip stopped 20:00 last night since blood gas with nml pH Plan: stop lab check since Normal today. (6) Hypocalcemia Impression: Low at 6.4 on 09/26 and repleted with calcium gluconate, up to 7.3 09/27 still low but corrected calcium with MDcalc is 8.6. -repletion prn. (7) Oliguria Impression: due to renal failure from sepsis and organ failure. Crea has improved to 2.1 (from 3.4 on admit). Will continue to follow. 3rd spacing secondary to fluid resuscitation. Now producing ~50cc urine/hour . Will watch because she may go to high output nonoliguric. (8) Hypokalemia Will replete by adding KCl to maintainence fluids. (9) Malnutrition following gastrointestinal surgery Impression: This unfortunate female stopped eating approximately September 24 if not sooner. She is been on TPN now. We will continue to monitor labs, albumin and protein etc. When she is extubated we can start trying to do p.o.
[2018-09-29] MEDS: ENOXAPARIN 30 MG/0.3 ML SYRINGE SUBQ SCH (09:11)
[2018-09-29] MEDS: INSULIN GLARGINE 300 UNIT/3 ML PEN SUBQ SCH ×2 (09:17→20:41)
[2018-09-29] MEDS: PANTOPRAZOLE 40 MG VIAL IVP SCH ×2 (09:22→20:40)
[2018-09-29] MEDS: CASPOFUNGIN 50 MG in SODIUM CHLORIDE 0.9% 100ML 100 ML IV SCH (09:31)
[2018-09-29] MEDS: CHLORHEXIDINE GLUCONATE 15 ML UDC PO SCH ×2 (10:26→20:27)
--- NOTE | 2018-09-29 11:16 | PROVIDER PROGRESS NOTE ---
Subjective - Prog Note Date Prog Note Date: 09/29/18 Prog Note Time: 07:50 - Subjective Subjective: Patient remains sedated and mechanically ventilated. Encouraging signs overnight. Levophed is down to 6 mcg/min. PIP is down to 20. Lungs: lots of upper airway noise. Air movement is definetly improved CV: RRR, tachycardia has resolved Abd:soft, still quiet, wound is clean. Dressing changed last night at 8 PM Laboratory Results - last 24 hr 09/28/18 09/28/18 09/28/18 12:09 17:49 23:12 Bld Gas Analysis Time Sample Site ABG pH ABG pCO2 ABG pO2 ABG HCO3 ABG Total CO2 ABG O2 Saturation ABG Base Excess Karlo Test Respiration Rate O2 Delivery Device Vent Mode FiO2 Tidal Volume PEEP POC Whole Bld Glucose 231 H 226 H 234 H Lactic Acid 09/29/18 09/29/18 09/29/18 00:21 00:45 04:29 Bld Gas Analysis Time 0048 Sample Site A-LINE ABG pH 7.34 L ABG pCO2 50 H ABG pO2 91 ABG HCO3 26.5 H ABG Total CO2 28.0 ABG O2 Saturation 97 ABG Base Excess 0.3 Karlo Test POSITIVE Respiration Rate 16 O2 Delivery Device VENTILATOR Vent Mode ACCESSED/CONTROL FiO2 40.00 Tidal Volume 400 PEEP 5 POC Whole Bld Glucose 270 H Lactic Acid < 0.3 L 09/29/18 09/29/18 05:15 06:10 Bld Gas Analysis Time 0529 Sample Site A-LINE ABG pH 7.41 ABG pCO2 44 ABG pO2 93 ABG HCO3 27.3 H ABG Total CO2 28.7 ABG O2 Saturation 97 ABG Base Excess 2.4 Karlo Test NOT APPLICABLE Respiration Rate 20 O2 Delivery Device VENTILATOR Vent Mode ACCESSED/CONTROL FiO2 40.00 Tidal Volume 400 PEEP 5 POC Whole Bld Glucose 256 H Lactic Acid Vital Signs - 24 hr 09/28/18 09/28/18 09/28/18 12:00 13:00 14:00 Temperature 37.7 C H Heart Rate Heart Rate [ 97 95 99 Monitoring electrodes] Respiratory 16 16 16 Rate Blood Pressure 101/59 L 100/56 L 122/68 [Left Radial artery] Blood Pressure 104/55 L 104/56 L 117/69 [Right Brachial artery] O2 Saturation 98 99 99 09/28/18 09/28/18 09/28/18 15:00 16:00 16:58 Temperature 37.8 C H Heart Rate 106 H Heart Rate [ 97 107 H Monitoring electrodes] Respiratory 18 16 Rate Blood Pressure 112/58 L [Left Radial artery] Blood Pressure 109/58 L 113/58 L [Right Brachial artery] O2 Saturation 98 94 09/28/18 09/28/18 09/28/18 17:00 18:00 18:12 Temperature Heart Rate 107 H Heart Rate [ 107 H 104 H Monitoring electrodes] Respiratory 16 15 Rate Blood Pressure 118/59 L [Left Radial artery] Blood Pressure 117/63 96/51 L [Right Brachial artery] O2 Saturation 98 98 09/28/18 09/28/18 09/28/18 19:00 19:30 20:00 Temperature 37.1 C Heart Rate 93 Heart Rate [ 101 H 92 Monitoring electrodes] Respiratory 15 16 Rate Blood Pressure 111/63 [Left Radial artery] Blood Pressure 102/55 L 99/58 L [Right Brachial artery] O2 Saturation 98 99 09/28/18 09/28/18 09/28/18 21:00 21:21 21:45 Temperature Heart Rate 92 Heart Rate [ 91 Monitoring electrodes] Respiratory 20 Rate Blood Pressure 105/62 112/62 [Left Radial artery] Blood Pressure 98/56 L 117/64 [Right Brachial artery] O2 Saturation 99 09/28/18 09/28/18 09/28/18 22:00 22:38 23:00 Temperature Heart Rate Heart Rate [ 84 82 Monitoring electrodes] Respiratory 18 17 17 Rate Blood Pressure 110/61 121/66 [Left Radial artery] Blood Pressure 107/59 L 107/60 [Right Brachial artery] O2 Saturation 99 99 09/28/18 09/29/18 09/29/18 23:30 00:00 01:00 Temperature 37.0 C Heart Rate 78 Heart Rate [ 74 78 Monitoring electrodes] Respiratory 14 15 Rate Blood Pressure 121/71 124/70 [Left Radial artery] Blood Pressure 106/61 113/67 [Right Brachial artery] O2 Saturation 100 99 09/29/18 09/29/18 09/29/18 02:00 02:09 03:00 Temperature 37.2 C Heart Rate Heart Rate [ 71 69 Monitoring electrodes] Respiratory 20 20 20 Rate Blood Pressure 97/53 L 110/57 L [Left Radial artery] Blood Pressure 95/61 116/61 [Right Brachial artery] O2 Saturation 99 99 09/29/18 09/29/18 09/29/18 03:53 04:00 05:00 Temperature Heart Rate 77 Heart Rate [ 70 68 Monitoring electrodes] Respiratory 20 20 Rate Blood Pressure 126/66 123/66 [Left Radial artery] Blood Pressure 120/71 114/65 [Right Brachial artery] O2 Saturation 100 100 09/29/18 09/29/18 09/29/18 05:36 06:00 06:04 Temperature Heart Rate 79 Heart Rate [ 72 Monitoring electrodes] Respiratory 20 20 Rate Blood Pressure 136/66 H [Left Radial artery] Blood Pressure 129/64 [Right Brachial artery] O2 Saturation 100 09/29/18 09/29/18 09/29/18 06:57 07:08 08:00 Temperature 37.3 C Heart Rate 68 Heart Rate [ 65 65 Monitoring electrodes] Respiratory 20 20 Rate Blood Pressure 114/56 L 117/56 L [Left Radial artery] Blood Pressure 127/68 [Right Brachial artery] O2 Saturation 99 100 09/29/18 09/29/18 09/29/18 09:25 10:00 10:22 Temperature Heart Rate 66 108 H Heart Rate [ 81 Monitoring electrodes] Respiratory 20 Rate Blood Pressure 157/70 H [Left Radial artery] Blood Pressure 130/88 H [Right Brachial artery] O2 Saturation 99 09/29/18 09/29/18 11:00 11:01 Temperature Heart Rate 97 Heart Rate [ 94 Monitoring electrodes] Respiratory 17 Rate Blood Pressure [Left Radial artery] Blood Pressure 101/52 L [Right Brachial artery] O2 Saturation 97 Oxygen O2 Source Mechanical ventilator Continue current antibiotics and current care. Can remove wound packing today and leave it out. Objective - Vital Signs/Intake & Output Vital Signs: Vital Signs x48h Temp Pulse Pulse Resp BP BP Pulse Ox 09/29/18 10:22 108 H 09/29/18 10:00 81 20 157/70 H 130/88 H 99 09/29/18 09:25 66 09/29/18 08:00 37.3 C 65 20 117/56 L 100 09/29/18 07:08 68 09/29/18 06:57 65 20 114/56 L 127/68 99 09/29/18 06:04 20 09/29/18 06:00 72 20 136/66 H 129/64 100 09/29/18 05:36 79 06/30/19 05:00 68 20 123/66 114/65 100 09/29/18 04:00 70 20 126/66 120/71 100 09/29/18 03:53 77 09/29/18 03:00 37.2 C 69 20 110/57 L 116/61 99 Intake & Output: Intake & Output 09/26/18 09/27/18 09/28/18 09/29/18 23:59 23:59 23:59 23:59 Intake Total 7573.797 5639.893 4903.470 1669.336 Output Total 760 1380 2413 3193 Balance 6813.797 4259.893 2490.470 -1523.664 - Lab Results Fish Bones: 09/28/18 04:13 09/28/18 04:13 Other Labs: Lab Results x24hrs 09/29/18 09/29/18 09/29/18 Range/Units 06:10 05:15 04:29 Bld Gas Analysis Time 0529 Sample Site A-LINE ABG pH 7.41 (7.35-7.45) ABG pCO2 44 (34-45) mmHg ABG pO2 93 (80-100) mmHg ABG HCO3 27.3 H (22.0-26.0) mmol/L ABG Total CO2 28.7 (21.0-29.0) MMOL/L ABG O2 Saturation 97 (94-98) % ABG Base Excess 2.4 (-2.0-3.0) mmol/L Karlo Test NOT APPLICABLE Respiration Rate 20 b/min O2 Delivery Device VENTILATOR Vent Mode ACCESSED/CONTROL FiO2 40.00 Tidal Volume 400 mL PEEP 5 cmH2O POC Whole Bld Glucose 256 H (70 - 100) mg/dL Lactic Acid < 0.3 L (0.5-2.2) mmol/L 09/29/18 09/29/18 09/28/18 Range/Units 00:45 00:21 23:12 Bld Gas Analysis Time 0048 Sample Site A-LINE ABG pH 7.34 L (7.35-7.45) ABG pCO2 50 H (34-45) mmHg ABG pO2 91 (80-100) mmHg ABG HCO3 26.5 H (22.0-26.0) mmol/L ABG Total CO2 28.0 (21.0-29.0) MMOL/L ABG O2 Saturation 97 (94-98) % ABG Base Excess 0.3 (-2.0-3.0) mmol/L Karlo Test POSITIVE Respiration Rate 16 b/min O2 Delivery Device VENTILATOR Vent Mode ACCESSED/CONTROL FiO2 40.00 Tidal Volume 400 mL PEEP 5 cmH2O POC Whole Bld Glucose 270 H 234 H (70 - 100) mg/dL Lactic Acid (0.5-2.2) mmol/L 09/28/18 09/28/18 Range/Units 17:49 12:09 Bld Gas Analysis Time Sample Site ABG pH (7.35-7.45) ABG pCO2 (34-45) mmHg ABG pO2 (80-100) mmHg ABG HCO3 (22.0-26.0) mmol/L ABG Total CO2 (21.0-29.0) MMOL/L ABG O2 Saturation (94-98) % ABG Base Excess (-2.0-3.0) mmol/L Karlo Test Respiration Rate b/min O2 Delivery Device Vent Mode FiO2 Tidal Volume mL PEEP cmH2O POC Whole Bld Glucose 226 H 231 H (70 - 100) mg/dL Lactic Acid (0.5-2.2) mmol/L Sepsis Event Note (H) - Evaluation Current Stage of Sepsis: Resolved Possible source of Sepsis: positive: GI tract/intra-abdominal - Sepsis Criteria Sepsis Criteria: Recorded Heart Rate greater than 90 bpm, Recorded Respiratory Rate greater than 20, WBC count greater than 12,000 or less than 4000, MAP less than 65 mmHg, Metabolic: lactate > 2 mmol/L, Hepatic: Bilirubin greater than 2mg/dl Assessment/Plan - Problem List (2) Sepsis Qualifiers: Sepsis type: sepsis due to unspecified organism Qualified Code(s): A41.9 - Sepsis, unspecified organism
[2018-09-29 14:22] LABS: ABG BASE EXCESS 1.6 mmol/L (-2.0-3.0); ABG HCO3 26.1 mmol/L (22.0-26.0); ABG OXYGEN SATURATION 94 % (94-98); ABG PCO2 41 mmHg (34-45); ABG PH 7.42 (7.35-7.45); ABG PO2 66 mmHg (80-100); ABG TCO2 27.4 MMOL/L (21.0-29.0)
[2018-09-29 16:42] LABS: VANCOMYCIN,TROUGH 14.7 ug/mL (10.0-20.0)
[2018-09-29 17:33] LABS: ABG PH 7.34 (7.35-7.45)
[2018-09-29 17:34] LABS: ABG BASE EXCESS -1.5 mmol/L (-2.0-3.0); ABG HCO3 24.4 mmol/L (22.0-26.0); ABG OXYGEN SATURATION 95 % (94-98); ABG PCO2 46 mmHg (34-45); ABG PO2 75 mmHg (80-100); ABG TCO2 25.8 MMOL/L (21.0-29.0)
[2018-09-29] MEDS: VANCOMYCIN INJ 1 GM in SODIUM CHLORIDE 0.9% 250 ML IV SCH (18:17)
[2018-09-29] MEDS: TPN (CLINIMIX E 5/15) 2,000 ML with MULTIVITAMIN 10 ML, TRACE ELEMENTS V CONC 1 ML IV SCH ×3 (18:50)
[2018-09-29] MEDS: FAT EMULSION 20% 250 ML IV SCH (18:51)
[2018-09-29] MEDS ORDERED: HYDROmorphone PCA 20MG/100ML IV PRN (19:57)
[2018-09-29] MEDS ORDERED: NALOXONE 0.4 MG/1 ML 10 ML MDV IV PRN (19:57)
[2018-09-29] MEDS: SODIUM CHLORIDE FLUSH 0.9% 10 ML SYRINGE IVP PRN ×2 (20:33→20:40)
[2018-09-29] MEDS: VASOPRESSIN 20 UNIT in DEXTROSE 5% 99 ML IV SCH (20:42)
[2018-09-30] MEDS ORDERED: fentaNYL 100 MCG/2 ML VIAL IVP PRN (00:47)
[2018-09-30] MEDS ORDERED: HYDROmorphone PCA 20MG/100ML IV PRN (00:47)
[2018-09-30] MEDS: INSULIN REGULAR HUMAN 100 UNIT/1 ML 10 ML MDV SUBQ SCH ×4 (00:50→18:36)
[2018-09-30] MEDS: SODIUM CHLORIDE FLUSH 0.9% 10 ML SYRINGE IVP SCH ×4 (00:50→20:34)
[2018-09-30] MEDS: MEROPENEM 500 MG in SODIUM CHLORIDE 0.9% MINIBAG 100 ML IV SCH ×3 (03:23→20:34)
[2018-09-30] MEDS: LORazepam 2 MG/ML VIAL IVP PRN ×2 (03:28→21:16)
[2018-09-30] MEDS: SODIUM CHLORIDE 0.9% 500 ML IV PRN (05:29)
[2018-09-30] MEDS: FUROSEMIDE 20 MG/2 ML VIAL IVP SCH ×2 (05:29→14:20)
[2018-09-30 05:56] LABS: ALBUMIN 1.5 g/dL (3.2-5.5); ALBUMIN/GLOBULIN RATIO 0.5 (1.0-2.2); BILIRUBIN,TOTAL 1.1 mg/dL (0.2-1.0); CALCIUM 7.5 mg/dL (8.5-10.3); CREATININE 1.4 mg/dL (0.4-1.0); PHOSPHORUS 3.3 mg/dL (2.5-4.6); TOTAL PROTEIN 4.7 g/dL (6.7-8.2)
[2018-09-30] MEDS: VASOPRESSIN 20 UNIT in DEXTROSE 5% 99 ML IV SCH (06:19)
--- NOTE | 2018-09-30 08:15 | PROVIDER PROGRESS NOTE ---
Subjective - Prog Note Date Prog Note Date: 09/30/18 Prog Note Time: 08:31 - Subjective Subjective: She describes his pain all over. She still responds her voices and will open up her eyes when we asked her to. At one point we felt she was developing too much sedation with the BLEACH ANALYST Dilaudid and we decreased it. But then she was in too much pain so we went back up to her maintenance dose. We had stopped her restraints yesterday after extubation. Unfortunately she pulled out her NG. So we are back to using restraints. Vitals have been stable without any temperature spike. Current Medications - Current Medications Current Medications: Active Medications Chlorhexidine Gluconate (Peridex) 15 ml PO BID [facility] Last Admin: 09/29/18 20:27 Dose: 15 ml Enoxaparin Sodium (Lovenox) 30 mg SUBQ DAILY [facility] Last Admin: 09/29/18 09:11 Dose: Not Given Fentanyl (Fentanyl) 50 mcg IVP Q2HR PRN PRN Reason: PAIN Furosemide (Lasix Inj 20mg Vial) 20 mg IVP BIDDIURETIC [facility] Last Admin: 09/30/18 05:29 Dose: 20 mg Hydromorphone HCl (Dilaudid Commissioning Agent 20mg/100ml) 20 mg IV PRN PRN; Protocol PRN Reason: Abdominal Pain Meropenem 500 mg/ Sodium (Chloride) 100 mls @ 200 mls/hr IV Q8H [facility] Last Infusion: 09/30/18 04:25 Dose: Infused Caspofungin 50 mg/ Sodium (Chloride) 100 mls @ 100 mls/hr IV DAILY [facility] Last Infusion: 09/29/18 10:35 Dose: Infused Vancomycin HCl 1 gm/ Sodium (Chloride) 250 mls @ 167 mls/hr IV Q36H [facility] Last Infusion: 09/29/18 20:52 Dose: Infused Multivitamins 10 ml/ Chromium/Copper/Manganese/Seleni/Zn 1 ml/ Amino Ac/Electrol/Dextrose /Calcium 2,011 mls @ 83 mls/hr IV Q24H [facility]; Protocol Last Admin: 09/29/18 18:50 Dose: 83 mls/hr Fat Emulsion Intravenous (Intralipid 20%) 250 mls @ 21 mls/hr IV Q24H [facility] Last Infusion: 09/30/18 06:47 Dose: Infused Vasopressin 20 unit/ Dextrose 100 mls @ 6 mls/hr IV .[id number] [facility]; Protocol Last Admin: 09/30/18 06:19 Dose: Not Given Sodium Chloride (Normal Saline 0.9%) 500 mls @ 0 mls/hr IV Q24H PRN PRN Reason: TKO RATE Last Admin: 09/30/18 05:29 Dose: 30 mls/hr Potassium Chloride (Potassium Chloride) 20 meq in 100 mls @ 100 mls/hr IV Q1H [facility] Stop: 09/30/18 10:59 Insulin Glargine (Lantus Solostar) 18 unit SUBQ BID [facility] Insulin Human Regular (Novolin R) 3 - 11 unit SUBQ Q6HR [facility]; Protocol Last Admin: 09/30/18 06:25 Dose: 5 unit Lorazepam (Ativan Inj (Vial)) 0.5 mg IVP Q2H PRN PRN Reason: Anxiety Last Admin: 09/30/18 03:28 Dose: 0.5 mg Mineral Oil (Cavilon) 1 applic TOP PRN PRN PRN Reason: Skin Care Last Admin: 09/28/18 18:02 Dose: 1 applic Naloxone HCl (Narcan) 2 mg IV PRN PRN PRN Reason: Opiod overdose Ondansetron HCl (Zofran Inj) 4 mg IVP Q6HR PRN PRN Reason: Nausea / Vomiting Pantoprazole Sodium (Protonix) 40 mg IVP BID [facility] Last Admin: 09/29/18 20:40 Dose: 40 mg Sodium Chloride (Normal Saline Flush 0.9%) 10 ml IVP 0100,0900,1700 [facility] Last Admin: 09/30/18 00:50 Dose: Not Given Sodium Chloride (Normal Saline Flush 0.9%) 10 ml IVP PRN PRN PRN Reason: NEEDED PER PROVIDER ORDERS Last Admin: 09/29/18 20:40 Dose: 10 ml Amlodipine Besylate [Norvasc] 10 mg PO DAILY 09/25/18 Canagliflozin [Invokana] 100 mg PO DAILY 09/25/18 Glipizide [Glucotrol] 10 mg PO DAILYWM 09/25/18 HYDROcod/ACETAM 5/325 [[place] 5/325] 1 - 2 tab PO Q6H PRN 09/25/18 Metformin HCl [Glucophage] 1,000 mg PO BIDWM 09/25/18 Omeprazole 20 mg PO QDAC 09/25/18 Ondansetron Odt [Zofran Odt] 4 mg PO Q6H PRN 09/25/18 Objective - Vital Signs/Intake & Output Reviewed Vital Signs: Yes Vital Signs: Vital Signs x48h Temp Pulse Resp BP BP Pulse Ox 09/30/18 06:00 103 H 17 140/85 H 153/78 H 94 09/30/18 05:09 106 H 17 111/78 159/73 H 93 09/30/18 04:18 37.1 C 105 H 18 146/73 H 95 09/30/18 04:00 107 H 24 169/78 H 138/71 H 99 09/30/18 03:00 102 H 20 153/77 H 138/71 H 96 09/30/18 02:00 108 H 20 162/78 H 158/75 H 95 09/30/18 01:23 20 09/30/18 01:00 106 H 20 144/74 H 141/65 H 95 Intake & Output: Intake & Output 09/27/18 09/28/18 09/29/18 09/30/18 23:59 23:59 23:59 23:59 Intake Total 5639.893 4903.470 5224.940 380 Output Total 1380 2413 5976 1615 Balance 4259.893 2490.470 -751.060 -1235 - Objective General Appearance: positive: Lethargic (Moaning, occasionally says "I hurt". Mild apnea, obstructive, at times) Eyes Bilateral: positive: PERRL, Other (Sclera is edematous) ENT: positive: Pharynx nml Neck: negative: Stiff neck, Carotid bruit Respiratory: positive: Chest non-tender, No respiratory distress (In spite of o bstructive pattern of breathing), Rales, Rhonchi, Other (Blood gas done at 17:30 last night, several hours after extubation showed a pH of 7.34, PCO2 46, PO2 75, base excess -1.5.). negative: Wheezes Cardiovascular: positive: Regular rate & rhythm. negative: Gallop/S4, Friction rub Abdomen: positive: Other (Slightly distended, generalized aching and grimacing her face when I palpate, still no bowel sounds. Packing in place.) Skin: positive: Warm, Dry Extremities: positive: Other (Anasarca) Neurologic/Psychiatric: positive: CN's nml (2-12), Motor nml, Weakness. nega tive: Disoriented to person, Disoriented to place, Disoriented to time - Lab Results Fish Bones: 09/28/18 04:13 09/30/18 04:30 Other Labs: Lab Results x24hrs 09/30/18 09/30/18 09/30/18 Range/Units 05:47 04:30 00:19 Bld Gas Analysis Time Sample Site ABG pH (7.35-7.45) ABG pCO2 (34-45) mmHg ABG pO2 (80-100) mmHg ABG HCO3 (22.0-26.0) mmol/L ABG Total CO2 (21.0-29.0) MMOL/L ABG O2 Saturation (94-98) % ABG Base Excess (-2.0-3.0) mmol/L Karlo Test O2 Delivery Device O2 Liters/Min LPM Vent Mode FiO2 PEEP cmH2O Pressure Support Vent cmH2O Sodium 139 (135-145) mmol/L Potassium 3.4 L (3.5-5.0) mmol/L Chloride 103 (101-111) mmol/L Carbon Dioxide 26 (21-32) mmol/L Anion Gap 10.0 (6-13) BUN 42 H (6-20) mg/dL Creatinine 1.4 H (0.4-1.0) mg/dL Estimated GFR (MDRD) 37 L (>89) Glucose 227 H (70-100) mg/dL POC Whole Bld Glucose 219 H 178 H (70 - 100) mg/dL Calcium 7.5 L (8.5-10.3) mg/dL Phosphorus 3.3 (2.5-4.6) mg/dL Magnesium 2.0 (1.7-2.8) mg/dL Total Bilirubin 1.1 H (0.2-1.0) mg/dL AST 19 (10-42) IU/L ALT 13 (10-60) IU/L Alkaline Phosphatase 244 H (42-121) IU/L Total Protein 4.7 L (6.7-8.2) g/dL Albumin 1.5 L (3.2-5.5) g/dL Globulin 3.2 (2.1-4.2) g/dL Albumin/Globulin Ratio 0.5 L (1.0-2.2) Prealbumin 4 L (18-45) mg/dL Triglycerides 80 ( - 149) mg/dL Last Dose Date Last Dose Time Vancomycin Trough (10.0-20.0) ug/mL 09/29/18 09/29/18 09/29/18 Range/Units 17:45 17:23 16:23 Bld Gas Analysis Time 1735 Sample Site A-LINE ABG pH 7.34 L (7.35-7.45) ABG pCO2 46 H (34-45) mmHg ABG pO2 75 L (80-100) mmHg ABG HCO3 24.4 (22.0-26.0) mmol/L ABG Total CO2 25.8 (21.0-29.0) MMOL/L ABG O2 Saturation 95 (94-98) % ABG Base Excess -1.5 (-2.0-3.0) mmol/L Karlo Test NOT APPLICABLE O2 Delivery Device NASAL CANNULA O2 Liters/Min 4.00 LPM Vent Mode FiO2 PEEP cmH2O Pressure Support Vent cmH2O Sodium (135-145) mmol/L Potassium (3.5-5.0) mmol/L Chloride (101-111) mmol/L Carbon Dioxide (21-32) mmol/L Anion Gap (6-13) BUN (6-20) mg/dL Creatinine (0.4-1.0) mg/dL Estimated GFR (MDRD) (>89) Glucose (70-100) mg/dL POC Whole Bld Glucose 180 H (70 - 100) mg/dL Calcium (8.5-10.3) mg/dL Phosphorus (2.5-4.6) mg/dL Magnesium (1.7-2.8) mg/dL Total Bilirubin (0.2-1.0) mg/dL AST (10-42) IU/L ALT (10-60) IU/L Alkaline Phosphatase (42-121) IU/L Total Protein (6.7-8.2) g/dL Albumin (3.2-5.5) g/dL Globulin (2.1-4.2) g/dL Albumin/Globulin Ratio (1.0-2.2) Prealbumin (18-45) mg/dL Triglycerides ( - 149) mg/dL Last Dose Date [id number] Last Dose Time 1053 Vancomycin Trough 14.7 (10.0-20.0) ug/mL 09/29/18 09/29/18 Range/Units 14:13 11:47 Bld Gas Analysis Time 141 Sample Site A-LINE ABG pH 7.42 (7.35-7.45) ABG pCO2 41 (34-45) mmHg ABG pO2 66 L (80-100) mmHg ABG HCO3 26.1 H (22.0-26.0) mmol/L ABG Total CO2 27.4 (21.0-29.0) MMOL/L ABG O2 Saturation 94 (94-98) % ABG Base Excess 1.6 (-2.0-3.0) mmol/L Karlo Test NOT APPLICABLE O2 Delivery Device VENTILATOR O2 Liters/Min LPM Vent Mode CPAP FiO2 35.00 PEEP 5 cmH2O Pressure Support Vent 12 cmH2O Sodium (135-145) mmol/L Potassium (3.5-5.0) mmol/L Chloride (101-111) mmol/L Carbon Dioxide (21-32) mmol/L Anion Gap (6-13) BUN (6-20) mg/dL Creatinine (0.4-1.0) mg/dL Estimated GFR (MDRD) (>89) Glucose (70-100) mg/dL POC Whole Bld Glucose 280 H (70 - 100) mg/dL Calcium (8.5-10.3) mg/dL Phosphorus (2.5-4.6) mg/dL Magnesium (1.7-2.8) mg/dL Total Bilirubin (0.2-1.0) mg/dL AST (10-42) IU/L ALT (10-60) IU/L Alkaline Phosphatase (42-121) IU/L Total Protein (6.7-8.2) g/dL Albumin (3.2-5.5) g/dL Globulin (2.1-4.2) g/dL Albumin/Globulin Ratio (1.0-2.2) Prealbumin (18-45) mg/dL Triglycerides ( - 149) mg/dL Last Dose Date Last Dose Time Vancomycin Trough (10.0-20.0) ug/mL ABX Reporting Has patient been on IV antibiotics over the past 48 hours?: Yes Sepsis Event Note (H) - Evaluation Current Stage of Sepsis: Resolved Possible source of Sepsis: positive: GI tract/intra-abdominal - Sepsis Criteria Sepsis Criteria: Recorded Heart Rate greater than 90 bpm, Recorded Respiratory Rate greater than 20, WBC count greater than 12,000 or less than 4000, MAP less than 65 mmHg, Metabolic: lactate > 2 mmol/L, Hepatic: Bilirubin greater than 2mg/dl Assessment/Plan - Problem List (1) Gastric ulcer with perforation Impression: POD#5 Present on admission. Patient presented with 1 day of abdominal pain. Seen in outside facility where ultrasound was negative. Sent home. Returned to our emergency room and identified as having an acute abdomen. Taken emergently to the operating room with a repair of a Venkat patch. Purulent material found in belly with washout.She was initially on cefepime as a single agent for treatment of her intra-abdominal infection. She is now day #5. After consultation with [facility] dental technician instructor, vancomycin and capsofungin addition recommended. She is now day #4 of those. x2 ZULAY drain sites to R and L abdomen with <20cc serosanguenous output per drain in 24hrs. Because of severe sepsis and hypoxia, the patient was kept on the ventilator. She was successfully extubated September 29 after failing extubation attempt September 27. Since extubated, she is appropriate and that she will open her eyes for us. In speaking to call and let us know that she is in pain" I just hurt all over". Sedation is still a problem. We try to wean down her Dilaudid BLEACH ANALYST but she was in too much pain and we had to go back up on her Dilaudid BLEACH ANALYST. She is significantly fluid overloaded. Resuscitation resulted in 22 L positive fluid status. For the last 2 days she has been slowly diuresing all her third spaced fluid. But she has significant pleural effusions. Plan: Protein pump inhibitor to continue at 40 mg twice daily Protonix Postoperative surgical management per surgery Because of site of perforation, followed dental technician instructor's recommendation of adding antifungal coverage and vanco. Would continue antibiotics for a full 7-10 days because of severe intrabdominal infection found during surgery. Continue to manage her fluid status and blood pressure status to maintain a negative fluid balance. Monitor vaginally for postoperative pneumonia. This unfortunate female is still at postoperative risk for getting more complications. Qualifiers: Gastric ulcer chronicity: acute Qualified Code(s): K25.1 - Acute gastric ulcer with perforation (4) Type 2 diabetes mellitus with hyperglycemia, without long-term current use of insulin Impression: She is now on TPN as 09/27 pm Glucose September 25: 183 September 27: 180, 176, 216, 212, September 28: 186, 187, 231 because she was trending higher I increased Lantus from 5 to 10 units. Then textile finisher last night increased to 12 units bid. September 29: 270, 256, 280, 180 Today 178, 219 Plan:On sliding scale Novolin R. On 12 of Lantus bid and I will change to Lantus 18 units bid, to make sure glucose stays close to below 150 as possible. (5) Lactic acidosis Impression: Due to sepsis. Patient is also on metformin. This was contributing to her metabolic derangement. Lactic acid 2.8 morning of 09/27 Bicarb drip stopped 20:00 09/28 since blood gas with nml pH Plan: stop lab check since Normal now (6) Hypocalcemia Impression: Low at 6.4 on 09/26 and repleted with calcium gluconate, up to 7.3 09/27 still low but corrected calcium with MDcalc is 8.6. -repletion prn. (7) Oliguria resolved. Impression: due to renal failure from sepsis and organ failure. Crea has improved to 1.4 (from 3.4 on admit). Will continue to follow. 3rd spacing secondary to fluid resuscitation and she was 21,845 cc (+) after 3 days of pressors and fluid bolus. Now producing ~50cc urine/hour and for last two days is (-) 1986 I/O. Will watch because she may go to high output nonoliguric. Plan: continue lasix 20 mg IVP bid (8) Hypokalemia Will replete by adding KCl to maintainence fluids. (9) Malnutrition following gastrointestinal surgery Impression: This unfortunate female stopped eating approximately September 24 if not sooner. She is been on TPN now since POD#2. We will continue to monitor labs, albumin and protein etc. She is extubated but not alert enough to do po food for now.
[2018-09-30] MEDS: CHLORHEXIDINE GLUCONATE 15 ML UDC PO SCH ×2 (08:32→21:16)
[2018-09-30] MEDS: POTASSIUM CHLOR 20 MEQ/100 ML 20 MEQ/100 ML BAG IV SCH ×2 (08:33→09:45)
[2018-09-30] MEDS: ENOXAPARIN 30 MG/0.3 ML SYRINGE SUBQ SCH (08:33)
[2018-09-30] MEDS: INSULIN GLARGINE 300 UNIT/3 ML PEN SUBQ SCH ×2 (08:58→21:24)
[2018-09-30] MEDS: PANTOPRAZOLE 40 MG VIAL IVP SCH ×2 (08:59→21:16)
[2018-09-30] MEDS: ENALAPRILAT 1.25 MG/ML VIAL IVP SCH ×3 (09:49→21:16)
--- NOTE | 2018-09-30 09:59 | PROVIDER PROGRESS NOTE ---
Subjective - Prog Note Date Prog Note Date: 09/30/18 Prog Note Time: 09:52 - Subjective Subjective: The patient is awake this morning but a little delirious. She is complaining of pain all over and seems disoriented in general.She asked to use the bedpan but is very uncomfortable sitting on it. She is unable to answer any my questions but does open her eyes and look around when asked to. Laboratory Results - last 24 hr 09/29/18 09/29/18 09/29/18 11:47 14:13 16:23 Bld Gas Analysis Time 1413 Sample Site A-LINE ABG pH 7.42 ABG pCO2 41 ABG pO2 66 L ABG HCO3 26.1 H ABG Total CO2 27.4 ABG O2 Saturation 94 ABG Base Excess 1.6 Karlo Test NOT APPLICABLE O2 Delivery Device VENTILATOR O2 Liters/Min Vent Mode CPAP FiO2 35.00 PEEP 5 Pressure Support Vent 12 Sodium Potassium Chloride Carbon Dioxide Anion Gap BUN Creatinine Estimated GFR (MDRD) Glucose POC Whole Bld Glucose 280 H Calcium Phosphorus Magnesium Total Bilirubin AST ALT Alkaline Phosphatase Total Protein Albumin Globulin Albumin/Globulin Ratio Prealbumin Triglycerides Last Dose Date 6280410 Last Dose Time 1053 Vancomycin Trough 14.7 09/29/18 09/29/18 09/30/18 17:23 17:45 00:19 Bld Gas Analysis Time 1735 Sample Site A-LINE ABG pH 7.34 L ABG pCO2 46 H ABG pO2 75 L ABG HCO3 24.4 ABG Total CO2 25.8 ABG O2 Saturation 95 ABG Base Excess -1.5 Karlo Test NOT APPLICABLE O2 Delivery Device NASAL CANNULA O2 Liters/Min 4.00 Vent Mode FiO2 PEEP Pressure Support Vent Sodium Potassium Chloride Carbon Dioxide Anion Gap BUN Creatinine Estimated GFR (MDRD) Glucose POC Whole Bld Glucose 180 H 178 H Calcium Phosphorus Magnesium Total Bilirubin AST ALT Alkaline Phosphatase Total Protein Albumin Globulin Albumin/Globulin Ratio Prealbumin Triglycerides Last Dose Date Last Dose Time Vancomycin Trough 09/30/18 09/30/18 09/30/18 04:30 05:47 08:51 Bld Gas Analysis Time Sample Site ABG pH ABG pCO2 ABG pO2 ABG HCO3 ABG Total CO2 ABG O2 Saturation ABG Base Excess Karlo Test O2 Delivery Device O2 Liters/Min Vent Mode FiO2 PEEP Pressure Support Vent Sodium 139 Potassium 3.4 L Chloride 103 Carbon Dioxide 26 Anion Gap 10.0 BUN 42 H Creatinine 1.4 H Estimated GFR (MDRD) 37 L Glucose 227 H POC Whole Bld Glucose 219 H 214 H Calcium 7.5 L Phosphorus 3.3 Magnesium 2.0 Total Bilirubin 1.1 H AST 19 ALT 13 Alkaline Phosphatase 244 H Total Protein 4.7 L Albumin 1.5 L Globulin 3.2 Albumin/Globulin Ratio 0.5 L Prealbumin 4 L Triglycerides 80 Last Dose Date Last Dose Time Vancomycin Trough Vital Signs - 24 hr 09/29/18 09/29/18 09/29/18 10:00 10:22 11:00 Temperature Heart Rate 108 H Heart Rate [ 81 94 Monitoring electrodes] Respiratory 20 17 Rate Blood Pressure 157/70 H [Left Radial artery] Blood Pressure 130/88 H 101/52 L [Right Brachial artery] O2 Saturation 99 97 09/29/18 09/29/18 09/29/18 11:01 12:00 13:00 Temperature 37.8 C H Heart Rate 97 Heart Rate [ 93 93 Monitoring electrodes] Respiratory 13 15 Rate Blood Pressure 99/52 L [Left Radial artery] Blood Pressure 101/59 L 130/64 [Right Brachial artery] O2 Saturation 98 97 09/29/18 09/29/18 09/29/18 13:27 13:50 14:00 Temperature Heart Rate 92 108 H Heart Rate [ 110 H Monitoring electrodes] Respiratory 22 Rate Blood Pressure 161/92 H [Left Radial artery] Blood Pressure 127/41 L [Right Brachial artery] O2 Saturation 96 09/29/18 09/29/18 09/29/18 15:00 16:00 17:00 Temperature 36.9 C 36.5 C Heart Rate Heart Rate [ 114 H 113 H 106 H Monitoring electrodes] Respiratory 24 20 18 Rate Blood Pressure 156/71 H [Left Radial artery] Blood Pressure 146/133 H 144/81 H 156/71 H [Right Brachial artery] O2 Saturation 94 96 93 09/29/18 09/29/18 09/29/18 18:00 18:57 20:00 Temperature 37.0 C Heart Rate Heart Rate [ 106 H 105 H Monitoring electrodes] Respiratory 16 15 14 Rate Blood Pressure 134/64 H [Left Radial artery] Blood Pressure 138/88 H 138/71 H [Right Brachial artery] O2 Saturation 94 93 09/29/18 09/29/18 09/29/18 20:09 21:00 22:00 Temperature Heart Rate Heart Rate [ 105 H 103 H Monitoring electrodes] Respiratory 15 15 15 Rate Blood Pressure [Left Radial artery] Blood Pressure 141/66 H 107/54 L [Right Brachial artery] O2 Saturation 97 97 09/29/18 09/30/18 09/30/18 23:00 00:00 01:00 Temperature 36.9 C Heart Rate Heart Rate [ 104 H 108 H 106 H Monitoring electrodes] Respiratory 17 19 20 Rate Blood Pressure 147/70 H 151/78 H 144/74 H [Left Radial artery] Blood Pressure 137/83 H 146/78 H 141/65 H [Right Brachial artery] O2 Saturation 96 95 95 09/30/18 09/30/18 09/30/18 01:23 02:00 03:00 Temperature Heart Rate Heart Rate [ 108 H 102 H Monitoring electrodes] Respiratory 20 20 20 Rate Blood Pressure 162/78 H 153/77 H [Left Radial artery] Blood Pressure 158/75 H 138/71 H [Right Brachial artery] O2 Saturation 95 96 09/30/18 09/30/18 09/30/18 04:00 04:18 05:09 Temperature 37.1 C Heart Rate Heart Rate [ 107 H 105 H 106 H Monitoring electrodes] Respiratory 24 18 17 Rate Blood Pressure 169/78 H 146/73 H 111/78 [Left Radial artery] Blood Pressure 138/71 H 159/73 H [Right Brachial artery] O2 Saturation 99 95 93 09/30/18 09/30/18 09/30/18 06:00 08:00 08:48 Temperature 37.3 C Heart Rate Heart Rate [ 103 H 109 H Monitoring electrodes] Respiratory 17 23 17 Rate Blood Pressure 140/85 H [Left Radial artery] Blood Pressure 153/78 H 167/87 H [Right Brachial artery] O2 Saturation 94 96 09/30/18 09:00 Temperature Heart Rate Heart Rate [ 96 Monitoring electrodes] Respiratory 15 Rate Blood Pressure [Left Radial artery] Blood Pressure 138/63 H [Right Brachial artery] O2 Saturation 97 Oxygen O2 Source Nasal cannula Lungs:Good air movement bilaterally. Intermittent squeak in the left lower lung field.Generally improved. Heart: Regular rate and rhythm. Intermittent tachycardia associated more with agitation I think than physiology Abdomen: Soft, mildly distended, active bowel sounds. Wound is clean and without gross purulence. A/P Gastrograffin study today to evaluate for both leak and patency. Continue all other care Objective - Vital Signs/Intake & Output Vital Signs: Vital Signs x48h Temp Pulse Resp BP BP Pulse Ox 09/30/18 09:00 96 15 138/63 H 97 09/30/18 08:48 17 09/30/18 08:00 37.3 C 109 H 23 167/87 H 96 09/30/18 06:00 103 H 17 140/85 H 153/78 H 94 09/30/18 05:09 106 H 17 111/78 159/73 H 93 09/30/18 04:18 37.1 C 105 H 18 146/73 H 95 09/30/18 04:00 107 H 24 169/78 H 138/71 H 99 09/30/18 03:00 102 H 20 153/77 H 138/71 H 96 09/30/18 02:00 108 H 20 162/78 H 158/75 H 95 Intake & Output: Intake & Output 09/27/18 09/28/18 09/29/18 09/30/18 23:59 23:59 23:59 23:59 Intake Total 5639.893 4903.470 5224.940 500 Output Total 1380 2413 5976 1965 Balance 4259.893 2490.470 -751.060 -1465 - Lab Results Fish Bones: 09/28/18 04:13 09/30/18 04:30 Other Labs: Lab Results x24hrs 09/30/18 09/30/18 09/30/18 Range/Units 08:51 05:47 04:30 Bld Gas Analysis Time Sample Site ABG pH (7.35-7.45) ABG pCO2 (34-45) mmHg ABG pO2 (80-100) mmHg ABG HCO3 (22.0-26.0) mmol/L ABG Total CO2 (21.0-29.0) MMOL/L ABG O2 Saturation (94-98) % ABG Base Excess (-2.0-3.0) mmol/L Karlo Test O2 Delivery Device O2 Liters/Min LPM Vent Mode FiO2 PEEP cmH2O Pressure Support Vent cmH2O Sodium 139 (135-145) mmol/L Potassium 3.4 L (3.5-5.0) mmol/L Chloride 103 (101-111) mmol/L Carbon Dioxide 26 (21-32) mmol/L Anion Gap 10.0 (6-13) BUN 42 H (6-20) mg/dL Creatinine 1.4 H (0.4-1.0) mg/dL Estimated GFR (MDRD) 37 L (>89) Glucose 227 H (70-100) mg/dL POC Whole Bld Glucose 214 H 219 H (70 - 100) mg/dL Calcium 7.5 L (8.5-10.3) mg/dL Phosphorus 3.3 (2.5-4.6) mg/dL Magnesium 2.0 (1.7-2.8) mg/dL Total Bilirubin 1.1 H (0.2-1.0) mg/dL AST 19 (10-42) IU/L ALT 13 (10-60) IU/L Alkaline Phosphatase 244 H (42-121) IU/L Total Protein 4.7 L (6.7-8.2) g/dL Albumin 1.5 L (3.2-5.5) g/dL Globulin 3.2 (2.1-4.2) g/dL Albumin/Globulin Ratio 0.5 L (1.0-2.2) Prealbumin 4 L (18-45) mg/dL Triglycerides 80 ( - 149) mg/dL Last Dose Date Last Dose Time Vancomycin Trough (10.0-20.0) ug/mL 09/30/18 09/29/18 09/29/18 Range/Units 00:19 17:45 17:23 Bld Gas Analysis Time 1735 Sample Site A-LINE ABG pH 7.34 L (7.35-7.45) ABG pCO2 46 H (34-45) mmHg ABG pO2 75 L (80-100) mmHg ABG HCO3 24.4 (22.0-26.0) mmol/L ABG Total CO2 25.8 (21.0-29.0) MMOL/L ABG O2 Saturation 95 (94-98) % ABG Base Excess -1.5 (-2.0-3.0) mmol/L Karlo Test NOT APPLICABLE O2 Delivery Device NASAL CANNULA O2 Liters/Min 4.00 LPM Vent Mode FiO2 PEEP cmH2O Pressure Support Vent cmH2O Sodium (135-145) mmol/L Potassium (3.5-5.0) mmol/L Chloride (101-111) mmol/L Carbon Dioxide (21-32) mmol/L Anion Gap (6-13) BUN (6-20) mg/dL Creatinine (0.4-1.0) mg/dL Estimated GFR (MDRD) (>89) Glucose (70-100) mg/dL POC Whole Bld Glucose 178 H 180 H (70 - 100) mg/dL Calcium (8.5-10.3) mg/dL Phosphorus (2.5-4.6) mg/dL Magnesium (1.7-2.8) mg/dL Total Bilirubin (0.2-1.0) mg/dL AST (10-42) IU/L ALT (10-60) IU/L Alkaline Phosphatase (42-121) IU/L Total Protein (6.7-8.2) g/dL Albumin (3.2-5.5) g/dL Globulin (2.1-4.2) g/dL Albumin/Globulin Ratio (1.0-2.2) Prealbumin (18-45) mg/dL Triglycerides ( - 149) mg/dL Last Dose Date Last Dose Time Vancomycin Trough (10.0-20.0) ug/mL 09/29/18 09/29/18 09/29/18 Range/Units 16:23 14:13 11:47 Bld Gas Analysis Time 1413 Sample Site A-LINE ABG pH 7.42 (7.35-7.45) ABG pCO2 41 (34-45) mmHg ABG pO2 66 L (80-100) mmHg ABG HCO3 26.1 H (22.0-26.0) mmol/L ABG Total CO2 27.4 (21.0-29.0) MMOL/L ABG O2 Saturation 94 (94-98) % ABG Base Excess 1.6 (-2.0-3.0) mmol/L Karlo Test NOT APPLICABLE O2 Delivery Device VENTILATOR O2 Liters/Min LPM Vent Mode CPAP FiO2 35.00 PEEP 5 cmH2O Pressure Support Vent 12 cmH2O Sodium (135-145) mmol/L Potassium (3.5-5.0) mmol/L Chloride (101-111) mmol/L Carbon Dioxide (21-32) mmol/L Anion Gap (6-13) BUN (6-20) mg/dL Creatinine (0.4-1.0) mg/dL Estimated GFR (MDRD) (>89) Glucose (70-100) mg/dL POC Whole Bld Glucose 280 H (70 - 100) mg/dL Calcium (8.5-10.3) mg/dL Phosphorus (2.5-4.6) mg/dL Magnesium (1.7-2.8) mg/dL Total Bilirubin (0.2-1.0) mg/dL AST (10-42) IU/L ALT (10-60) IU/L Alkaline Phosphatase (42-121) IU/L Total Protein (6.7-8.2) g/dL Albumin (3.2-5.5) g/dL Globulin (2.1-4.2) g/dL Albumin/Globulin Ratio (1.0-2.2) Prealbumin (18-45) mg/dL Triglycerides ( - 149) mg/dL Last Dose Date 6280410 Last Dose Time 105 Vancomycin Trough 14.7 (10.0-20.0) ug/mL Sepsis Event Note (H) - Evaluation Current Stage of Sepsis: Resolved Possible source of Sepsis: positive: GI tract/intra-abdominal - Sepsis Criteria Sepsis Criteria: Recorded Heart Rate greater than 90 bpm, Recorded Respiratory Rate greater than 20, WBC count greater than 12,000 or less than 4000, MAP less than 65 mmHg, Metabolic: lactate > 2 mmol/L, Hepatic: Bilirubin greater than 2mg/dl Assessment/Plan - Problem List (2) Sepsis Qualifiers: Sepsis type: sepsis due to unspecified organism Qualified Code(s): A41.9 - Sepsis, unspecified organism
[2018-09-30] MEDS: CASPOFUNGIN 50 MG in SODIUM CHLORIDE 0.9% 100ML 100 ML IV SCH (11:07)
--- NOTE | 2018-09-30 12:01 | XRAY Report ---
Reason: NG placement Procedure Date: 09/30/2018 Accession Number: [id number] / [id number] Procedure: XR - Chest 1 View X-Ray CPT Code: 03368 FULL RESULT: EXAM: CHEST RADIOGRAPHY EXAM DATE: 09/30/2018 11:40 AM. CLINICAL HISTORY: Nasogastric tube placement. COMPARISON: CHEST 1 VIEW 09/29/2018 5:29 AM. TECHNIQUE: 1 view. FINDINGS: Lungs/Pleura: Improving pulmonary vascular congestion and perihilar interstitial opacities in the lungs. Continued small bilateral pleural effusions, larger on the right than the left. No pneumothorax. Mediastinum: Within exam limitations, the cardiomediastinal contour is normal. Other: Extubation. The right internal jugular central venous access catheter terminates at the junction of the superior vena cava and the right atrium. The nasogastric tube terminates over the fundus of the stomach. Stable postsurgical changes in the upper abdomen. IMPRESSION: 1. Lower lung volumes after extubation. 2. Improving pulmonary vascular congestion and perihilar interstitial edema. 3. Appropriate position of the nasogastric tube. 4. The remainder is stable. RADIA
[2018-09-30] MEDS ORDERED: SODIUM CHLORIDE 0.9% 1,000 ML IV ONE (13:43)
[2018-09-30] MEDS ORDERED: DIATR MEGLU/DIATRIZOATE SODIUM 120 ML BOTTLE PO ONE (13:45)
--- NOTE | 2018-09-30 17:29 | XRAY Report ---
Reason: Perforated duodenal ulcer Procedure Date: 09/30/2018 Accession Number: [id number] / [id number] Procedure: FL - UGI KUB W/O Air CPT Code: FULL RESULT: EXAM: UGI KUB W/O Air DATE: 09/30/2018 1:36 PM CLINICAL HISTORY: Perforated pyloric channel ulcer COMPARISON: CT abdomen and pelvis 09/25/2018. TECHNIQUE: Dilute Gastrografin is injected via nasogastric tube into the stomach. Fluoroscopic exposure time: 3.4 minutes. Number of fluoroscopic images: 9 series. FINDINGS: Preliminary allergist immunologist film: Surgical vince anterior abdominal wall. Nasogastric tube ends in the stomach. Surgical drain in place. Gastrografin flows freely from the stomach through the pylorus into the duodenum. There is no evidence of obstruction or extravasation. IMPRESSION: No evidence of leak status post perforated pyloric channel ulcer repair. RADIA
[2018-09-30] MEDS: FAT EMULSION 20% 250 ML IV SCH (18:37)
[2018-09-30] MEDS: TRACE ELEMENTS V IV SCH ×4 (18:41)
[2018-09-30] MEDS: TPN IV SCH ×4 (18:41)
[2018-09-30] MEDS: MULTIVITAMIN IV SCH ×4 (18:41)
[2018-09-30] MEDS: [UNRECOGNIZED DRUG - OTHER] IV SCH ×4 (18:41)
[2018-09-30] MEDS: SODIUM CHLORIDE FLUSH 0.9% 10 ML SYRINGE IVP PRN ×2 (20:34→21:16)
[2018-10-01] MEDS: INSULIN REGULAR HUMAN 100 UNIT/1 ML 10 ML MDV SUBQ SCH ×4 (00:13→18:20)
[2018-10-01] MEDS: ENALAPRILAT 1.25 MG/ML VIAL IVP SCH ×4 (03:29→21:36)
[2018-10-01] MEDS: MEROPENEM 500 MG in SODIUM CHLORIDE 0.9% MINIBAG 100 ML IV SCH ×3 (03:30→19:51)
[2018-10-01] MEDS: VANCOMYCIN INJ 1 GM in SODIUM CHLORIDE 0.9% 250 ML IV SCH (04:37)
[2018-10-01 05:21] LABS: BASOPHILS % (AUTO) 0.7 %; EOSINOPHILS % (AUTO) 2.1 %; HGB - HEMOGLOBIN 9.3 g/dL (12.0-16.0); LYMPHOCYTES % (AUTO) 8.8 %; MEAN CORPUSCULAR HEMOGLOBIN 30.5 pg (27.0-31.0); MEAN CORPUSCULAR HGB CONC 32.7 g/dL (32.0-36.0); MEAN CORPUSCULAR VOLUME 93.1 fL (81.0-99.0); MEAN PLATELET VOLUME 10.4 fL (7.9-10.8); MONOCYTES % (AUTO) 8.5 %; NEUTROPHILS % (AUTO) 78.8 %; PLT - PLATELET COUNT 167 10^3/uL (130-450); RED BLOOD COUNT 3.05 10^6/uL (4.20-5.40); RED CELL DISTRIBUTION WIDTH 14.3 % (12.0-15.0)
[2018-10-01 05:29] LABS: ABNORMAL LYMPHS % (MANUAL) 0 %; BAND NEUTROPHILS % (MANUAL) 0 %
[2018-10-01] MEDS: FUROSEMIDE 20 MG/2 ML VIAL IVP SCH ×2 (05:57→14:54)
[2018-10-01 06:06] LABS: EOSINOPHILS # (MANUAL) 0.3 10^3/uL (0-0.7); LYMPHOCYTES # (MANUAL) 1.7 10^3/uL (1.5-3.5); LYMPHOCYTES % (MANUAL) 11 %; MONOCYTES # (MANUAL) 0.6 10^3/uL (0.0-1.0); NEUTROPHILS # (MANUAL) 12.5 10^3/uL (1.5-6.6); NEUTROPHILS % (MANUAL) 83 %
[2018-10-01 06:09] LABS: RBC MORPHOLOGY (MULTIPLE) 1+ HYPOCHROMASIA (NORMAL)
[2018-10-01 06:10] LABS: DIFFERENTIAL COMMENT MANUAL DIFFERENTIAL; PLATELET ESTIMATE, MANUAL NORMAL (130-450,000) (NORMAL); PLATELET MORPHOLOGY NORMAL APPEARANCE (NORMAL)
[2018-10-01 08:08] LABS: ALBUMIN 1.6 g/dL (3.2-5.5); ALBUMIN/GLOBULIN RATIO 0.5 (1.0-2.2); BILIRUBIN,TOTAL 0.8 mg/dL (0.2-1.0); CALCIUM 8.1 mg/dL (8.5-10.3); CREATININE 1.3 mg/dL (0.4-1.0)
[2018-10-01] MEDS: PANTOPRAZOLE 40 MG VIAL IVP SCH ×2 (08:19→21:33)
[2018-10-01] MEDS: SODIUM CHLORIDE FLUSH 0.9% 10 ML SYRINGE IVP SCH ×2 (08:19→16:47)
--- NOTE | 2018-10-01 08:19 | PROVIDER PROGRESS NOTE ---
Subjective - Prog Note Date Prog Note Date: 10/01/18 Prog Note Time: 08:17 - Subjective Subjective: The patient is on 4 L of O2. She moans intermittently but does not respond to commands today.At one point I did think she may have answered my question does she have pain but I am not sure that was not just a random bone.She is not oriented at all. Fish breathing is noted. Objective - Vital Signs/Intake & Output Reviewed Vital Signs: Yes Vital Signs: Vital Signs x48h Temp Pulse Resp BP Pulse Ox 10/01/18 08:00 36.7 C 107 H 20 159/75 H 92 10/01/18 07:00 102 H 20 142/79 H 95 10/01/18 06:00 103 H 18 140/72 H 94 10/01/18 05:54 15 10/01/18 05:00 100 18 137/68 H 95 10/01/18 04:00 36.9 C 101 H 16 116/59 L 96 10/01/18 03:00 98 15 128/69 97 10/01/18 02:00 106 H 19 118/62 95 10/01/18 00:59 98 14 116/58 L 96 10/01/18 00:54 14 Intake & Output: Intake & Output 09/28/18 09/29/18 09/30/18 10/01/18 23:59 23:59 23:59 23:59 Intake Total 4903.470 5224.940 3021 367 Output Total 2413 5976 5607 1083 Balance 2490.470 -751.060 -2586 -716 - Objective General Appearance: positive: Lethargic Respiratory: positive: Rales, Rhonchi, Other (Fish breathing pattern is noted). negative: Wheezes Cardiovascular: positive: Regular rate & rhythm, No murmur, Tachycardia (Low- grade in the low 100s) Abdomen: positive: Other (Wound is clean. Some serous drainage where the packing was removed yesterday but no evidence of infection. Hypoactive bowel tonesBut definitely present) Skin: positive: Color nml Neurologic/Psychiatric: positive: Disoriented to person, Disoriented to place, Disoriented to time - Lab Results Fish Bones: 10/01/18 05:05 10/01/18 07:48 Other Labs: Lab Results x24hrs 10/01/18 10/01/18 10/01/18 Range/Units 07:48 05:45 05:05 WBC 15.0 H (4.8-10.8) x10^3/uL RBC 3.05 L (4.20-5.40) 10^6/uL Hgb 9.3 L (12.0-16.0) g/dL Hct 28.4 L (37.0-47.0) % MCV 93.1 (81.0-99.0) fL MCH 30.5 (27.0-31.0) pg MCHC 32.7 (32.0-36.0) g/dL RDW 14.3 (12.0-15.0) % Plt Count 167 (130-450) 10^3/uL MPV 10.4 (7.9-10.8) fL Neut # (Auto) Not Reportable Lymph # (Auto) Not Reportable Hood # (Auto) Not Reportable Eos # (Auto) Not Reportable Baso # (Auto) Not Reportable Absolute Nucleated RBC Not Reportable Total Counted 100 Band Neuts % (Manual) 0 (0 - 10) % Abnorm Lymph % (Manual) 0 % Nucleated RBC % Not Reportable Neutrophils # (Manual) 12.5 H (1.5-6.6) 10^3/uL Lymphocytes # (Manual) 1.7 (1.5-3.5) 10^3/uL Monocytes # (Manual) 0.6 (0.0-1.0) 10^3/uL Eosinophils # (Manual) 0.3 (0-0.7) 10^3/uL Basophils # (Manual) 0.0 (0-0.1) 10^3/uL Differential Comment MANUAL DIFFERENTIAL WBC Morphology NORMAL APPEARANCE (NORMAL) Platelet Estimate NORMAL (130-450,000) (NORMAL) Platelet Morphology NORMAL APPEARANCE (NORMAL) RBC Morph Micro Appear 1+ HYPOCHROMASIA (NORMAL) Sodium 144 (135-145) mmol/L Potassium 3.7 (3.5-5.0) mmol/L Chloride 103 (101-111) mmol/L Carbon Dioxide 31 (21-32) mmol/L Anion Gap 10.0 (6-13) BUN 47 H (6-20) mg/dL Creatinine 1.3 H (0.4-1.0) mg/dL Estimated GFR (MDRD) 40 L (>89) Glucose 215 H (70-100) mg/dL POC Whole Bld Glucose 190 H (70 - 100) mg/dL Calcium 8.1 L (8.5-10.3) mg/dL Total Bilirubin 0.8 (0.2-1.0) mg/dL AST 17 (10-42) IU/L ALT 15 (10-60) IU/L Alkaline Phosphatase 283 H (42-121) IU/L Total Protein 5.0 L (6.7-8.2) g/dL Albumin 1.6 L (3.2-5.5) g/dL Globulin 3.4 (2.1-4.2) g/dL Albumin/Globulin Ratio 0.5 L (1.0-2.2) 10/01/18 09/30/18 09/30/18 Range/Units 00:08 21:24 18:03 WBC (4.8-10.8) x10^3/uL RBC (4.20-5.40) 10^6/uL Hgb (12.0-16.0) g/dL Hct (37.0-47.0) % MCV (81.0-99.0) fL MCH (27.0-31.0) pg MCHC (32.0-36.0) g/dL RDW (12.0-15.0) % Plt Count (130-450) 10^3/uL MPV (7.9-10.8) fL Neut # (Auto) Lymph # (Auto) Hood # (Auto) Eos # (Auto) Baso # (Auto) Absolute Nucleated RBC Total Counted Band Neuts % (Manual) (0 - 10) % Abnorm Lymph % (Manual) % Nucleated RBC % Neutrophils # (Manual) (1.5-6.6) 10^3/uL Lymphocytes # (Manual) (1.5-3.5) 10^3/uL Monocytes # (Manual) (0.0-1.0) 10^3/uL Eosinophils # (Manual) (0-0.7) 10^3/uL Basophils # (Manual) (0-0.1) 10^3/uL Differential Comment WBC Morphology (NORMAL) Platelet Estimate (NORMAL) Platelet Morphology (NORMAL) RBC Morph Micro Appear (NORMAL) Sodium (135-145) mmol/L Potassium (3.5-5.0) mmol/L Chloride (101-111) mmol/L Carbon Dioxide (21-32) mmol/L Anion Gap (6-13) BUN (6-20) mg/dL Creatinine (0.4-1.0) mg/dL Estimated GFR (MDRD) (>89) Glucose (70-100) mg/dL POC Whole Bld Glucose 199 H 167 H 233 H (70 - 100) mg/dL Calcium (8.5-10.3) mg/dL Total Bilirubin (0.2-1.0) mg/dL AST (10-42) IU/L ALT (10-60) IU/L Alkaline Phosphatase (42-121) IU/L Total Protein (6.7-8.2) g/dL Albumin (3.2-5.5) g/dL Globulin (2.1-4.2) g/dL Albumin/Globulin Ratio (1.0-2.2) 09/30/18 09/30/18 Range/Units 11:14 08:51 WBC (4.8-10.8) x10^3/uL RBC (4.20-5.40) 10^6/uL Hgb (12.0-16.0) g/dL Hct (37.0-47.0) % MCV (81.0-99.0) fL MCH (27.0-31.0) pg MCHC (32.0-36.0) g/dL RDW (12.0-15.0) % Plt Count (130-450) 10^3/uL MPV (7.9-10.8) fL Neut # (Auto) Lymph # (Auto) Hood # (Auto) Eos # (Auto) Baso # (Auto) Absolute Nucleated RBC Total Counted Band Neuts % (Manual) (0 - 10) % Abnorm Lymph % (Manual) % Nucleated RBC % Neutrophils # (Manual) (1.5-6.6) 10^3/uL Lymphocytes # (Manual) (1.5-3.5) 10^3/uL Monocytes # (Manual) (0.0-1.0) 10^3/uL Eosinophils # (Manual) (0-0.7) 10^3/uL Basophils # (Manual) (0-0.1) 10^3/uL Differential Comment WBC Morphology (NORMAL) Platelet Estimate (NORMAL) Platelet Morphology (NORMAL) RBC Morph Micro Appear (NORMAL) Sodium (135-145) mmol/L Potassium (3.5-5.0) mmol/L Chloride (101-111) mmol/L Carbon Dioxide (21-32) mmol/L Anion Gap (6-13) BUN (6-20) mg/dL Creatinine (0.4-1.0) mg/dL Estimated GFR (MDRD) (>89) Glucose (70-100) mg/dL POC Whole Bld Glucose 201 H 214 H (70 - 100) mg/dL Calcium (8.5-10.3) mg/dL Total Bilirubin (0.2-1.0) mg/dL AST (10-42) IU/L ALT (10-60) IU/L Alkaline Phosphatase (42-121) IU/L Total Protein (6.7-8.2) g/dL Albumin (3.2-5.5) g/dL Globulin (2.1-4.2) g/dL Albumin/Globulin Ratio (1.0-2.2) - Diagnostic Imaging Diagnostic Imaging Results: positive: Final report reviewed Diagnostic Imaging Comments: No evidence of leak on the KUB study done yesterday. Test x-ray shows improving pattern of interstitial and vascularcongestion.Low lung volumes. ABX Reporting Has patient been on IV antibiotics over the past 48 hours?: Yes Sepsis Event Note (H) - Evaluation Current Stage of Sepsis: Resolved Possible source of Sepsis: positive: GI tract/intra-abdominal - Sepsis Criteria Sepsis Criteria: Recorded Heart Rate greater than 90 bpm, Recorded Respiratory Rate greater than 20, WBC count greater than 12,000 or less than 4000, MAP less than 65 mmHg, Metabolic: lactate > 2 mmol/L, Hepatic: Bilirubin greater than 2mg/dl Assessment/Plan - Problem List (1) Perforated bowel Impression: 1.Perforated duodenal ulcer with peritonitis and sepsis:Consistent slow improvement. KUB showed no evidence of leak. 2.ARDS:Improving slowly.Breathing pattern is somewhat concerning.ABG today. 3.Delirium:Certainly expected in the setting of an elderly lady with a severe sepsis event.Continue supportive care and it should resolve in time. 4.Deconditioning: Physical therapy consult when hospitalist feels it is appropriate 5.New leukocytosis:The patient continues on Merrem, caspofungin, and vancomycin.If this trend continues, we may consider a repeat scan to look for an abscess within the abdominal cavity.The drains have minimal output and it is serous only. (2) Sepsis Qualifiers: Sepsis type: sepsis due to unspecified organism Qualified Code(s): A41.9 - Sepsis, unspecified organism
[2018-10-01] MEDS ORDERED: SODIUM CHLORIDE 0.9% 500 ML IV ONE ×3 (08:20→16:29)
[2018-10-01] MEDS: ENOXAPARIN 30 MG/0.3 ML SYRINGE SUBQ SCH (08:22)
[2018-10-01] MEDS: CHLORHEXIDINE GLUCONATE 15 ML UDC PO SCH ×2 (08:22→21:32)
[2018-10-01] MEDS: INSULIN GLARGINE 300 UNIT/3 ML PEN SUBQ SCH ×2 (08:26→21:35)
[2018-10-01 08:32] LABS: ABG PCO2 57 mmHg (34-45); ABG PH 7.33 (7.35-7.45); ABG PO2 75 mmHg (80-100)
[2018-10-01 08:33] LABS: ABG BASE EXCESS 2.8 mmol/L (-2.0-3.0); ABG HCO3 29.7 mmol/L (22.0-26.0); ABG OXYGEN SATURATION 94 % (94-98); ABG TCO2 31.5 MMOL/L (21.0-29.0); ALLEN TEST POSITIVE
--- NOTE | 2018-10-01 09:34 | XRAY Report ---
Reason: pneumonia Procedure Date: 10/01/2018 Accession Number: [id number] / [id number] Procedure: XR - Chest 1 View X-Ray CPT Code: 21654 FULL RESULT: EXAM: CHEST RADIOGRAPHY EXAM DATE: 10/01/2018 08:38 AM. CLINICAL HISTORY: Pneumonia. COMPARISON: CHEST 1 VIEW 09/30/2018 11:13 AM. TECHNIQUE: 1 view. FINDINGS: Lungs/Pleura: Stable mild pulmonary vascular congestion. Confluent right perihilar and bibasal parenchymal opacities. Symmetric low lung volumes. Small right pleural effusion. The left costophrenic recess is sharp. No pneumothorax. Mediastinum: Within exam limitations, the cardiomediastinal contour is normal. Other: The right internal jugular central venous access catheter terminates at the junction of the superior vena cava and the right atrium. The nasogastric tube terminates over the fundus of the stomach. Stable postsurgical changes in the upper abdomen. IMPRESSION: 1. Stable position of the life support lines and tubes. 2. Stable postsurgical changes in the upper abdomen. 3. Right perihilar and bibasal parenchymal opacities, without significant improvement in the interval. 4. Small right pleural effusion. RADIA
[2018-10-01] MEDS: CASPOFUNGIN 50 MG in SODIUM CHLORIDE 0.9% 100ML 100 ML IV SCH (09:45)
[2018-10-01] MEDS: SODIUM CHLORIDE 0.9% 500 ML IV PRN (10:00)
[2018-10-01 15:25] LABS: VBG PCO2 61.6 mmHg (41-51); VBG PH 7.314 (7.31-7.41); VBG PO2 63.2 mmHg (25-47)
[2018-10-01 15:26] LABS: VBG BASE EXCESS 3.2 mmol/L (-2 - +2); VBG TOTAL CO2 32.5 mmol/L (24-29)
--- NOTE | 2018-10-01 15:56 | PROVIDER PROGRESS NOTE ---
Assessment/Plan - Problem List (1) Acute respiratory failure with hypoxia and hypercarbia Assessment/Plan: She appeared in respiratory distress and had grunting with breathing this morning Saturation of oxygen intermittently adequate but during the day her CO2 increased and serum pH went down from normal yesterday to 7.33 then 7.31 in the afternoon. She was therefore reintubated electively by Anesthesia. The patchy infiltrates are concern for HCAP versus ARDS versus atelectasis. Follow chest x-rays daily. (2) Hypotension Assessment/Plan: This is concerning for septic shock with the big increase in white blood count since yesterday At induction of sedation by anesthesia, for intubation, she dropped her blood pressure to 60-70 systolic. The hypotension may just be temporary, related to medications. We will give saline fluid bolus. We will order IV Levophed to maintain MAP of 65. Will order lactic acid and reculture Will obtain a troponin level and order an EKG. (3) Gastric ulcer with perforation Assessment/Plan: Patient is now postop day #7. Dr. Urbina the surgeon is following along. Continue IV meds for ulcer treatment. She is still on NG drainage, n.p.o. status. Continue support with TPN (4) Elevated WBC count Assessment/Plan: Patient has not been on steroids. Most likely etiology is worsening of an infection. Will reorder blood cultures and follow lactic acid level. We will broaden antibiotics (5) Draining postoperative wound Qualifiers: Encounter type: initial encounter Qualified Code(s): T81.89XA - Other complications of procedures, not elsewhere classified, initial encounter Assessment/Plan: This may be the source of worsening WBC Wound fluid sent for culture. Continue to follow her CBC daily and empiric antibiotics, also to cover skin organism (6) Anemia Assessment/Plan: Concern for intra-abdominal bleeding since she is postop. Recheck CT of abdomen for hematoma. Follow CBC daily Transfuse PRBCs if hemoglobin less than 7-8 (7) TONEY (acute kidney injury) Assessment/Plan: The creatinine is improving slowly postop. Continue with IV hydration. (8) Diabetes mellitus Assessment/Plan: She is on TPN with Insulin, following fingerstick glu checks. (9) Malnutrition following gastrointestinal surgery Assessment/Plan: This female stopped eating approximately September 24 if not sooner. She is been on TPN now since POD#2. We will continue to monitor labs. When she was extubated, not alert enough to start po food. - Current Meds Current Meds: Current Medications Generic Name Dose Route Start Last Admin Trade Name Freq PRN Reason Stop Dose Admin Chlorhexidine Gluconate 15 ml 09/26/18 21:00 10/01/18 08:22 Peridex PO Not Given BID ZULLY Enalaprilat 1.25 mg 09/30/18 09:00 10/01/18 14:55 Vasotec Inj IVP 1.25 mg Q6H ZULLY Administration Enoxaparin Sodium 30 mg 09/29/18 09:00 10/01/18 08:22 Lovenox SUBQ 30 mg DAILY ZULLY Administration Furosemide 20 mg 09/28/18 21:00 10/01/18 14:54 Lasix Inj 20mg Vial IVP 20 mg BIDDIURETIC ZULLY Administration Meropenem 500 mg/ Sodium 100 mls @ 200 mls/hr 09/25/18 20:00 10/01/18 12:50 Chloride IV 200 mls/hr Q8H ZULLY Administration Caspofungin 50 mg/ Sodium 100 mls @ 100 mls/hr 09/27/18 09:00 10/01/18 09:45 Chloride IV 100 mls/hr DAILY ZULLY Administration Vancomycin HCl 1 gm/ Sodium 250 mls @ 167 mls/hr 09/28/18 05:00 10/01/18 04:37 Chloride IV 167 mls/hr Q36H ZULLY Administration Fat Emulsion Intravenous 250 mls @ 21 mls/hr 09/27/18 19:00 10/01/18 07:06 Intralipid 20% IV Infused Q24H ZULLY Infusion Sodium Chloride 500 mls @ 0 mls/hr 09/30/18 05:25 09/30/18 05:29 Normal Saline 0.9% IV 30 mls/hr Q24H PRN Administration TKO RATE TKO Multivitamins 10 ml/ Chromium/ 2,011.2 mls @ 83.008 mls/hr 09/30/18 19:00 09/30/18 18:41 Copper/Manganese/Seleni/Zn 1 IV 83.008 mls/hr ml/ Insulin Human Regular 20 Q24H ZLULY Administration unit/ Amino Ac/Electrol/ Dextrose/Calcium Protocol Insulin Glargine 18 unit 09/30/18 09:00 07/02/19 08:26 Lantus Solostar SUBQ 18 unit BID ZULLY Administration Insulin Human Regular 3 - 11 unit 09/27/18 19:00 10/01/18 12:50 Novolin R SUBQ 5 unit Q6HR ZULLY Administration Protocol Lorazepam 0.5 mg 09/25/18 20:01 09/30/18 21:16 Ativan Inj (Vial) IVP 0.5 mg Q2H PRN Administration Anxiety Mineral Oil 1 applic 09/28/18 17:34 09/28/18 18:02 Cavilon TOP 1 applic PRN PRN Administration Skin Care Pantoprazole Sodium 40 mg 09/25/18 21:00 10/01/18 08:19 Protonix IVP 40 mg BID ZULLY Administration Sodium Chloride 10 ml 09/26/18 01:00 10/01/18 08:19 Normal Saline Flush 0.9% IVP 10 ml 0100,0900,1700 ZULLY Administration Sodium Chloride 10 ml 09/25/18 19:16 09/30/18 21:16 Normal Saline Flush 0.9% IVP 10 ml PRN PRN Administration NEEDED PER PROVIDER ORDERS - Lab Result Fish Bone Diagrams: 10/01/18 05:05 10/01/18 07:48 - EKG Results EKG Interpreted Independently: Yes EKG Comparison: Changed from prior EKG EKG Findings: Sinus tachy, rate 108, PVC, low voltage, lateral T wave flattening (old), J point elevation inferior leads (new). - Additional Planning My Orders: My Active Orders 10/01/18 Blood Culture [CULTURE, BLOOD #1] [RM] Stat 10/01/18 11:58 Restraints [RC] Q4H 10/01/18 11:59 Restraints Safety Check [RC] Q1H 10/01/18 15:16 CUL,WOUND (AEROBIC) [RM] Stat 10/01/18 15:29 ED Intubation ONCE 10/01/18 15:40 Anesthesia Consult [CONS] Routine 10/02/18 07:30 VANCOMYCIN TROUGH [CHEM] Timed Subjective - Subjective Patient Reports: Other (Moaning and appears in respiratory distress) Nursing Reports: Confused, Other Objective Vital Signs: Vital Signs - 24 hr 09/30/18 09/30/18 09/30/18 16:00 16:31 17:00 Temperature 36.9 C Heart Rate [ 103 H 100 Monitoring electrodes] Respiratory 21 20 14 Rate Blood Pressure 163/86 H 149/78 H [Right Brachial artery] O2 Saturation 98 99 09/30/18 09/30/18 09/30/18 18:00 19:00 20:00 Temperature 37.6 C H 37.4 C 37 C Heart Rate [ 104 H 103 H 106 H Monitoring electrodes] Respiratory 17 20 16 Rate Blood Pressure 151/71 H 155/69 H 157/76 H [Right Brachial artery] O2 Saturation 97 97 97 09/30/18 09/30/18 09/30/18 21:00 21:05 22:00 Temperature Heart Rate [ 108 H 109 H Monitoring electrodes] Respiratory 19 19 18 Rate Blood Pressure 149/76 H 133/72 H [Right Brachial artery] O2 Saturation 97 96 09/30/18 10/01/18 10/01/18 23:00 00:00 00:54 Temperature 36.7 C 36.6 C Heart Rate [ 98 94 Monitoring electrodes] Respiratory 14 14 14 Rate Blood Pressure 107/58 L 102/55 L [Right Brachial artery] O2 Saturation 97 97 10/01/18 10/01/18 10/01/18 00:59 02:00 03:00 Temperature Heart Rate [ 98 106 H 98 Monitoring electrodes] Respiratory 14 19 15 Rate Blood Pressure 116/58 L 118/62 128/69 [Right Brachial artery] O2 Saturation 96 95 97 10/01/18 10/01/18 10/01/18 04:00 05:00 05:54 Temperature 36.9 C Heart Rate [ 101 H 100 Monitoring electrodes] Respiratory 16 18 15 Rate Blood Pressure 116/59 L 137/68 H [Right Brachial artery] O2 Saturation 96 95 10/01/18 10/01/18 10/01/18 06:00 07:00 08:00 Temperature 36.7 C Heart Rate [ 103 H 102 H 107 H Monitoring electrodes] Respiratory 18 20 20 Rate Blood Pressure 140/72 H 142/79 H 159/75 H [Right Brachial artery] O2 Saturation 94 95 92 10/01/18 10/01/18 10/01/18 08:46 09:00 10:00 Temperature Heart Rate [ 114 H 106 H Monitoring electrodes] Respiratory 23 25 H 22 Rate Blood Pressure 163/80 H 161/87 H [Right Brachial artery] O2 Saturation 96 94 10/01/18 10/01/18 10/01/18 11:00 12:00 13:00 Temperature 37.1 C Heart Rate [ 94 94 94 Monitoring electrodes] Respiratory 20 16 22 Rate Blood Pressure 110/62 144/69 H 165/76 H [Right Brachial artery] O2 Saturation 98 98 99 10/01/18 10/01/18 14:00 15:00 Temperature Heart Rate [ 94 100 Monitoring electrodes] Respiratory 15 16 Rate Blood Pressure 127/61 151/65 H [Right Brachial artery] O2 Saturation 99 99 Oxygen O2 Source Nasal cannula I&O (Last 24 Hrs): Intake and Output Totals x24h 09/29/18 09/30/18 10/01/18 23:59 23:59 23:59 Intake Total 5224.940 3021 427 Output Total 5976 5607 4653 Balance -645.960 -6202 -5315 General: Moderate distress HEENT: Mucous membr. moist/pink Neck: Supple, No JVD Neuro: Other (Sedated) Cardiovascular: Regular rate, No murmurs Respiratory: Other (Diminished BS, no wheezes or rales) Abdomen: Soft, Other (Wound has yellow-white drainage) Genitourinary: Other (Baires in place) Extremities: Other (1+ edema) - Results Results: Laboratory Results WBC 15.0 x10^3/uL (4.8-10.8) H 10/01/18 05:05 RBC 3.05 10^6/uL (4.20-5.40) L 10/01/18 05:05 Hgb 9.3 g/dL (12.0-16.0) L 10/01/18 05:05 Hct 28.4 % (37.0-47.0) L 10/01/18 05:05 MCV 93.1 fL (81.0-99.0) 10/01/18 05:05 MCH 30.5 pg (27.0-31.0) 10/01/18 05:05 MCHC 32.7 g/dL (32.0-36.0) 10/01/18 05:05 RDW 14.3 % (12.0-15.0) 10/01/18 05:05 Plt Count 167 10^3/uL (130-450) 10/01/18 05:05 MPV 10.4 fL (7.9-10.8) 10/01/18 05:05 Neut # (Auto) Not Reportable 10/01/18 05:05 Lymph # (Auto) Not Reportable 10/01/18 05:05 Wood # (Auto) Not Reportable 10/01/18 05:05 Eos # (Auto) Not Reportable 10/01/18 05:05 Baso # (Auto) Not Reportable 10/01/18 05:05 Absolute Nucleated RBC Not Reportable 10/01/18 05:05 Total Counted 100 10/01/18 05:05 Band Neuts % (Manual) 0 % (0-10) 10/01/18 05:05 Abnorm Lymph % (Manual) 0 % 10/01/18 05:05 Metamyelocytes % 3 % (-0) H 09/26/18 04:00 Myelocytes % 1 % (-0) H 09/26/18 04:00 Nucleated RBC % Not Reportable 10/01/18 05:05 Neutrophils # (Manual) 12.5 10^3/uL (1.5-6.6) H 10/01/18 05:05 Lymphocytes # (Manual) 1.7 10^3/uL (1.5-3.5) 10/01/18 05:05 Monocytes # (Manual) 0.6 10^3/uL (0.0-1.0) 10/01/18 05:05 Eosinophils # (Manual) 0.3 10^3/uL (0-0.7) 10/01/18 05:05 Basophils # (Manual) 0.0 10^3/uL (0-0.1) 10/01/18 05:05 Differential Comment MANUAL DIFFERENTIAL 10/01/18 05:05 WBC Morphology NORMAL APPEARANCE (NORMAL) 10/01/18 05:05 Platelet Estimate NORMAL (130-450,000) (NORMAL) 10/01/18 05:05 Platelet Morphology NORMAL APPEARANCE (NORMAL) 10/01/18 05:05 RBC Morph Micro Appear 1+ HYPOCHROMASIA (NORMAL) 10/01/18 05:05 PT 12.2 secs (9.9-12.6) 09/28/18 04:13 INR 1.1 (0.8-1.2) 09/28/18 04:13 Bld Gas Analysis Time 0834 10/01/18 08:23 Sample Site RIGHT RADIAL 10/01/18 08:23 ABG pH 7.33 (7.35-7.45) L 10/01/18 08:23 ABG pCO2 57 mmHg (34-45) H 10/01/18 08:23 ABG pO2 75 mmHg (80-100) L 10/01/18 08:23 ABG HCO3 29.7 mmol/L (22.0-26.0) H 10/01/18 08:23 ABG Total CO2 31.5 MMOL/L (21.0-29.0) H 10/01/18 08:23 ABG O2 Saturation 94 % (94-98) 10/01/18 08:23 ABG Base Excess 2.8 mmol/L (-2.0-3.0) 10/01/18 08:23 Karlo Test POSITIVE 10/01/18 08:23 VBG pH 7.314 (7.31-7.41) 10/01/18 15:15 VBG pCO2 61.6 mmHg (41-51) H 10/01/18 15:15 VBG pO2 63.2 mmHg (25-47) H 10/01/18 15:15 VBG HCO3 30.6 mmol/L (23-28) H 10/01/18 15:15 VBG Total CO2 32.5 mmol/L (24-29) H 10/01/18 15:15 VBG O2 Saturation 92.5 % (60-80) H 10/01/18 15:15 VBG Base Excess 3.2 mmol/L (-2 - +2) H 10/01/18 15:15 Ionized Calcium 1.09 mmol/L (1.15-1.33) L 09/27/18 01:05 Respiration Rate 18 b/min 10/01/18 08:23 O2 Delivery Device NASAL CANNULA 10/01/18 08:23 O2 Liters/Min 3.00 LPM 10/01/18 08:23 Vent Mode CPAP 09/29/18 14:13 FiO2 35.00 09/29/18 14:13 Tidal Volume 400 mL 09/29/18 05:15 PEEP 5 cmH2O 09/29/18 14:13 Pressure Support Vent 12 cmH2O 09/29/18 14:13 Sodium 144 mmol/L (135-145) 10/01/18 07:48 Potassium 3.7 mmol/L (3.5-5.0) 10/01/18 07:48 Chloride 103 mmol/L (101-111) 10/01/18 07:48 Carbon Dioxide 31 mmol/L (21-32) 10/01/18 07:48 Anion Gap 10.0 (6-13) 10/01/18 07:48 BUN 47 mg/dL (6-20) H 10/01/18 07:48 Creatinine 1.3 mg/dL (0.4-1.0) H 10/01/18 07:48 Estimated GFR (MDRD) 40 (>89) L 10/01/18 07:48 Glucose 215 mg/dL (70-100) H 10/01/18 07:48 POC Whole Bld Glucose 186 mg/dL (70 - 100) H 10/01/18 11:51 Glycated Hemoglobin 7.3 % (4.6-6.2) H 09/25/18 20:25 Estim Average Glucose 163 (70-100) H 09/25/18 20:25 Lactic Acid < 0.3 mmol/L (0.5-2.2) L 09/29/18 04:29 Calcium 8.1 mg/dL (8.5-10.3) L 10/01/18 07:48 Phosphorus 3.3 mg/dL (2.5-4.6) 09/30/18 04:30 Magnesium 2.0 mg/dL (1.7-2.8) 09/30/18 04:30 Total Bilirubin 0.8 mg/dL (0.2-1.0) 10/01/18 07:48 AST 17 IU/L (10-42) 10/01/18 07:48 ALT 15 IU/L (10-60) 10/01/18 07:48 Alkaline Phosphatase 283 IU/L (42-121) H 10/01/18 07:48 Troponin I < 0.04 ng/mL (<0.49) 09/25/18 14:37 B-Natriuretic Peptide 1149 pg/mL (5-100) H 09/26/18 04:00 Total Protein 5.0 g/dL (6.7-8.2) L 10/01/18 07:48 Albumin 1.6 g/dL (3.2-5.5) L 10/01/18 07:48 Globulin 3.4 g/dL (2.1-4.2) 10/01/18 07:48 Albumin/Globulin Ratio 0.5 (1.0-2.2) L 10/01/18 07:48 Prealbumin 4 mg/dL (18-45) L 09/30/18 04:30 Triglycerides 80 mg/dL (-149) 09/30/18 04:30 Lipase 384 U/L (22-51) H 09/25/18 14:37 25-OH Vitamin D Total 26 ng/mL (30-100) L 09/26/18 06:55 PTH Intact 644 pg/mL (12-88) H 09/26/18 05:15 Urine Color LT. YELLOW 09/25/18 Unknown Urine Clarity SL. CLOUDY (CLEAR) 09/25/18 Unknown Urine pH 5.5 PH (5.0-7.5) 09/25/18 Unknown Ur Specific [place] 1.025 (1.002-1.030) 09/25/18 Unknown Urine Protein 30 mg/dL (NEGATIVE) H 09/25/18 Unknown Urine Glucose (UA) 100 mg/dL (NEGATIVE) H 09/25/18 Unknown Urine Ketones 15 mg/dL (NEGATIVE) H 09/25/18 Unknown Urine Occult Blood MODERATE (NEGATIVE) H 09/25/18 Unknown Urine Nitrite POSITIVE (NEGATIVE) H 09/25/18 Unknown Urine Bilirubin NEGATIVE (NEGATIVE) 09/25/18 Unknown Urine Urobilinogen 0.2 (NORMAL) E.U./dL (NORMAL) 09/25/18 Unknown Ur Leukocyte Esterase SMALL (NEGATIVE) H 09/25/18 Unknown Urine RBC 0-5 /HPF (0-5) 09/25/18 Unknown Urine WBC 4-5 /HPF (0-5) 09/25/18 Unknown Ur Squamous Epith Cells RARE Squamous (<= Few) 09/25/18 Unknown Urine Bacteria Many /HPF (None Seen) H 09/25/18 Unknown Ur Microscopic Review INDICATED 09/25/18 Unknown Urine Culture Comments INDICATED 09/25/18 Unknown Nasal Screen MRSA (PCR) NEGATIVE (NEGATIVE) 09/25/18 20:17 Last Dose Date [id number]/29/18 16:23 Last Dose Time 1053 09/29/18 16:23 Vancomycin Trough 14.7 ug/mL (10.0-20.0) 09/29/18 16:23 Serum Ketones NEGATIVE (NEGATIVE) 09/25/18 20:25 Sepsis Event Note (H) - Evaluation Current Stage of Sepsis: Resolved Possible source of Sepsis: positive: GI tract/intra-abdominal - Sepsis Criteria Sepsis Criteria: Recorded Heart Rate greater than 90 bpm, Recorded Respiratory Rate greater than 20, WBC count greater than 12,000 or less than 4000, MAP less than 65 mmHg, Metabolic: lactate > 2 mmol/L, Hepatic: Bilirubin greater than 2mg/dl
[2018-10-01] MEDS ORDERED: EPINEPHrine 1 MG/ML AMP ONE (16:25)
[2018-10-01] MEDS: MIDAZOLAM DRIP 50 MG/100 ML BAG IV SCH (17:12)
--- NOTE | 2018-10-01 17:12 | XRAY Report ---
Reason: Newly re-intubated Procedure Date: 10/01/2018 Accession Number: [id number] / [id number] Procedure: XR - Chest 1 View X-Ray CPT Code: 77872 FULL RESULT: EXAM: CHEST RADIOGRAPHY EXAM DATE: 10/01/2018 04:45 PM. CLINICAL HISTORY: Newly re-intubated. COMPARISON: CHEST 1 VIEW 10/01/2018 8:38 AM. TECHNIQUE: 1 view. FINDINGS: Cardiac leads overlie the chest. The endotracheal tube terminates 2.4 cm above the jude. The right internal jugular central venous catheter is unchanged. The enteric tube courses below the diaphragm and projects off the inferior edge of the film. Drainage catheters are again seen in the left upper abdominal quadrant. Heart size is unchanged. Calcified plaques in the thoracic aorta. Increased aeration to the right lung base. Residual patchy and hazy opacities likely representing atelectasis. Small right pleural effusion. No pneumothorax. IMPRESSION: Endotracheal tube terminating 2.4 cm above the jude. Additional support devices as described above. Small right pleural effusion. Increased aeration to the right lung base. Residual patchy and hazy opacities likely represent atelectasis. RADIA
[2018-10-01] MEDS: MULTIVITAMIN IV SCH ×4 (18:19)
[2018-10-01] MEDS: TRACE ELEMENTS V IV SCH ×4 (18:19)
[2018-10-01] MEDS: [UNRECOGNIZED DRUG - OTHER] IV SCH ×4 (18:19)
[2018-10-01] MEDS: TPN IV SCH ×4 (18:19)
[2018-10-01 18:31] LABS: ABG PH 7.27 (7.35-7.45)
[2018-10-01] MEDS: FAT EMULSION 20% 250 ML IV SCH (18:32)
[2018-10-01 18:34] LABS: ABG HCO3 32.9 mmol/L (22.0-26.0); ABG OXYGEN SATURATION 95 % (94-98); ABG PCO2 72 mmHg (34-45); ABG PO2 89 mmHg (80-100); ALLEN TEST POSITIVE
[2018-10-01 19:35] LABS: ABG PCO2 51 mmHg (34-45)
[2018-10-01 19:37] LABS: ABG BASE EXCESS 4.6 mmol/L (-2.0-3.0); ABG HCO3 30.3 mmol/L (22.0-26.0); ABG OXYGEN SATURATION 99 % (94-98); ABG PO2 173 mmHg (80-100); ABG TCO2 31.8 MMOL/L (21.0-29.0); ALLEN TEST POSITIVE
[2018-10-01] MEDS ORDERED: HYDROmorphone 2 MG/ML VIAL ONE ×2 (20:06→20:10)
[2018-10-01 21:00] LABS: ABG BASE EXCESS 5.3 mmol/L (-2.0-3.0); ABG HCO3 31.8 mmol/L (22.0-26.0); ABG PCO2 56 mmHg (34-45); ABG PH 7.37 (7.35-7.45); ABG PO2 59 mmHg (80-100); ABG TCO2 33.5 MMOL/L (21.0-29.0)
[2018-10-01 21:01] LABS: ABG OXYGEN SATURATION 91 % (94-98); ALLEN TEST POSITIVE
[2018-10-01 22:16] LABS: ABG PCO2 58 mmHg (34-45); ABG PH 7.38 (7.35-7.45); ABG PO2 54 mmHg (80-100)
[2018-10-01 22:17] LABS: ABG BASE EXCESS 6.8 mmol/L (-2.0-3.0); ABG HCO3 33.3 mmol/L (22.0-26.0); ABG OXYGEN SATURATION 90 % (94-98); ABG TCO2 35.1 MMOL/L (21.0-29.0); ALLEN TEST POSITIVE
[2018-10-02] MEDS: INSULIN REGULAR HUMAN 100 UNIT/1 ML 10 ML MDV SUBQ SCH (00:10)
[2018-10-02] MEDS: SODIUM CHLORIDE FLUSH 0.9% 10 ML SYRINGE IVP SCH (00:33)
[2018-10-02] MEDS: SODIUM CHLORIDE 0.9% 500 ML IV PRN (00:55)
[2018-10-02 01:02] LABS: ABG HCO3 30.4 mmol/L (22.0-26.0); ABG PCO2 56 mmHg (34-45); ABG PH 7.35 (7.35-7.45); ABG PO2 123 mmHg (80-100); ABG TCO2 32.2 MMOL/L (21.0-29.0)
[2018-10-02 01:03] LABS: ABG BASE EXCESS 3.8 mmol/L (-2.0-3.0); ABG OXYGEN SATURATION 98 % (94-98); ALLEN TEST POSITIVE
[2018-10-02 01:09] VITALS: BP 129/66
[2018-10-02] MEDS: MIDAZOLAM DRIP 50 MG/100 ML BAG IV SCH (01:27)
--- NOTE | 2018-10-02 04:19 | DISCHARGE SUMMARY ---
Discharge Summary Admit Date: 09/25/18 Discharge Date: 10/02/18 Discharging Provider: Staci Weiner Primary Care Provider: Joleen Jamison Code Status: Attempt Resuscitation Condition at Discharge: Critical Discharge Disposition: 02 Transfer Acute Care Hosp Discharge Facility Name: [facility] - DIAGNOSES Admission Diagnoses: 1. Septic Shock 2. Acute respiratory failure with hypoxemia 3. Gastric ulcer with perforation 4. Type 2 Diabetes mellitus with hyperglycemia, without long-term current use of insulin 5. Lactic acidosis 6. Hypocalcemia 7. Oliguria Discharge Diagnoses with Status of Each Condition: 1. Septic Shock: On vancomycin, merrem and caspofungin. On levophed 2. ARDS: Intubated. Vent setting SIMV, 80% R 22 Tidal Volume 400, PEEP 9 3. Acute respiratory failure with hypoxemia. Suspect 2/2 ARDS and/or pleural effusion. Intubated. Last vent setting SIMV, 80% R 22 Tidal Volume 400, PEEP 9 4. Gastric ulcer with perforation. s/p Surgery. POD7. OG tube and [address] 5. Type 2 Diabetes mellitus with hyperglycemia, without long-term current use of insulin: Stable. Last blood glucose 190. (Likely due to TPN). On insulin 6. Lactic acidosis: Resolved 7. Hypocalcemia: Persists 8. Oliguria: Improving. Creatinine was 1.4 at discharge. It was 4.4 at admission - HPI History of Present Illness: Marah is a 73 year old femle with PMhx significant for type 2 DM (NIDDM) who is on MFM, Invokana and glipizide, GERD/PUD on PPI, HTN on Norvasc, she is employed by a local [employer]. Family reports that she was taken to the [facility] emergency room yesterday afternoon at approximately 1:00 with severe abdominal pain.She was seen and evaluated there and found to have a normal ultrasound and essentially normal and reassuring labs. She was discharged from that facility with some pain medication and other medications which will be identified later. The family reports that she was in severe pain all evening and only slept about 2 hours.The pain has gotten progressively more severe over the day.She is accompanied by both a close friend and her .The friend reports that they gave her her medication as they were directed to but when her pain became too severe to handle, they decided to bring her to the emergency room.In the emergency department here she was found to be hypotensive and tachycardic consistent with sepsis. A CT scan of the abdomen and pelvis revealed free air and free fluid. The radiologist felt that the perforation was somewhere in the region of the proximal jejunum. - HOSPITAL COURSE Hospital Course: Hospitalist service was consulted on 09/25/18 for critical care management of septic/distributive shock secondary to perforated pyloric ulcer s/p exploratory laparotomy with pyloric channel repair and plcmt of lisa patch POD#0, now has ZULAY drains and has received approximately almost 5L of aggressive IVF resuscitation, on pressor support with weaning levophed from 18 mcg/hr to 8 mcg now, UO steadily improving from 100 cc>160 cc in last couple hrs, has PCN allergy and is on IV merrem from anaerobic and broad coverage. Currently MAP>90 with BP 100/50 tachy at 109 on Mech Vent with settings of PEEP 5, 80% Fio2, RR 20, and PS 10, RT to draw an ABG. TONEY seen in the setting of septic shock with baseline range 0.7-0.9, Cr 3.4 with LA 4.4 on admission. Bandemia of 14% seen with no drops in H/H, WBC 2.9, Tbili 2.8, lipase 384, w/ no transaminases elevation, on LR and NS to switch to PPN with D5NS with ISS on NPO/TPN protocol and will implement sedation protocol with propofol gtt. Ucx, blood cultures drawn, CVP and a-line present and appear C/D/I as well as surgical site, ZULAY drain with blood serous fluid. Lung exam with bilteral rhonchi no rales or wheezing, and abd appears non-tense with no distention but absent BS. 09/26/18 2D echo done to assess for right heart strain in light of ARDS [facility] Histologic Technician Service contacted Advised reducing propofol to help with hypotension Add vasopressin to levophed Continue vancomycin and merrem and add antifungal coverage [facility] consult recommendation was caspofungin Lactic acid trended down to 3.0. Placed on bicarb drip 09/27/18 Lactic acid continued to improve Oliguria improved Urine output 50ml/hr Creatinine improved from 3.4 to 2.4 Above treatment of antimicrobials continued Urine culture : Klebsiella pneumonia. Blood cultures No Growth to date Vasopressin discontinued TPN started 09/28/18 Patient did not tolerate weaning trial. PIP was 40 09/29/18 Extubated. 22L positive volume status Weaned off pressors and sedation, was doing well Got agitated so propofol resumed for sedation. Then blood pressure dropped so levophed resumed Patient failed another attempt at weaning later in the day Plan was to continue antibiotics for a total of 7-10 days 10/01/18 Reintubated for worsening respiratory status Saturation of oxygen intermittently adequate but during the day her CO2 increased and serum pH went down He respiratory status as evidenced by her blood gases, appearing clammy and grunting on the vent continued to fluctuate in the evening As a result the Histologic Technician Service at [facility] was contacted with request to transfer to a higher level of care. Dr Christos Valencia accepted the patient and she was transferred to on 10/02/18 at 0200am. - ALLERGIES Allergies/Adverse Reactions: Allergies Allergy/AdvReac Type Severity Reaction Status Date / Time Penicillins Allergy Rash Verified 09/25/18 14:12 - MEDICATIONS Home Medications: Ambulatory Orders Medication Instructions Recorded Confirmed Amlodipine Besylate [Norvasc] 10 mg PO DAILY 09/25/18 09/25/18 Canagliflozin [Invokana] 100 mg PO DAILY 09/25/18 09/25/18 Glipizide [Glucotrol] 10 mg PO DAILYWM 09/25/18 09/25/18 HYDROcod/ACETAM 5/325 [[place] 5/325] 1 - 2 tab PO Q6H PRN 09/25/18 09/25/18 Metformin HCl [Glucophage] 1,000 mg PO BIDWM 09/25/18 09/25/18 Omeprazole 20 mg PO QDAC 09/25/18 09/25/18 Ondansetron Odt [Zofran Odt] 4 mg PO Q6H PRN 09/25/18 09/25/18 - LABS Result Diagrams: 10/01/18 05:05 10/01/18 07:48 - SEPSIS Current Stage of Sepsis: Resolved Possible source of Sepsis: GI tract/intra-abdominal Sepsis Criteria: Recorded Heart Rate greater than 90 bpm, Recorded Respiratory Rate greater than 20, WBC count greater than 12,000 or less than 4000, MAP less than 65 mmHg, Metabolic: lactate > 2 mmol/L, Hepatic: Bilirubin greater than 2mg/dl - QUALITY (Female Hip Fx Only) Was patient sent home on osteoporosis medication?: No - TIME SPENT Time Spent in Discharge (Minutes): 60
--- NOTE | 2018-10-09 10:46 | ANESTHESIA PROCEDURE NOTE ---
Anesthesia Intubation Template - Intubation Blade: positive: Dominik Tube: Size-enter number (7), Cuffed Route: Oral Placement Confirmation: End tidal CO2, Direct visualization, Bilateral breath sounds Complications: No complications (intubated on october 01, 2018)
== END 2018-10-02 01:57 | disposition short-term general hospital (02) | DRG 853 ==
LOC: ED 13:59 → MS3 16:26 → ICU 18:34
PROVIDERS: ADMIT Surgery; ATTEND Internal Medicine
PROC: 02HV33Z Insertion of Infusion Device into Superior Vena Cava, Percutaneous Approach (ICD-10-PCS; 2018-09-25)
PROC: 03HB33Z Insertion of Infusion Device into Right Radial Artery, Percutaneous Approach (ICD-10-PCS; 2018-09-25)
PROC: 5A1945Z Respiratory Ventilation, 24-96 Consecutive Hours (ICD-10-PCS; 2018-09-25)
PROC: 0DU707Z Supplement Stomach, Pylorus with Autologous Tissue Substitute, Open Approach (ICD-10-PCS; principal; 2018-09-25 17:30)
PROC: 3E0436Z Introduction of Nutritional Substance into Central Vein, Percutaneous Approach (ICD-10-PCS; 2018-09-27)
PROC: 5A1935Z Respiratory Ventilation, Less than 24 Consecutive Hours (ICD-10-PCS; 2018-10-01)
PROC: 0BH17EZ Insertion of Endotracheal Airway into Trachea, Via Natural or Artificial Opening (ICD-10-PCS; 2018-10-01)
DX: B37.7 Candidal sepsis (principal); K63.1 Perforation of intestine (nontraumatic); K25.1 Acute gastric ulcer with perforation; R65.21 Severe sepsis with septic shock; J80 Acute respiratory distress syndrome; K65.0 Generalized (acute) peritonitis; E87.2 Acidosis; N17.9 Acute kidney failure, unspecified; E87.1 Hypo-osmolality and hyponatremia; E46 Unspecified protein-calorie malnutrition; J91.8 Pleural effusion in other conditions classified elsewhere; F05 Delirium due to known physiological condition; D62 Acute posthemorrhagic anemia; N39.0 Urinary tract infection, site not specified; E87.70 Fluid overload, unspecified; E11.65 Type 2 diabetes mellitus with hyperglycemia; E83.51 Hypocalcemia; E87.6 Hypokalemia; I10 Essential (primary) hypertension; K21.9 Gastro-esophageal reflux disease without esophagitis; Z78.1 Physical restraint status; Z79.84 Long term (current) use of oral hypoglycemic drugs; Z79.899 Other long term (current) drug therapy; Z88.0 Allergy status to penicillin; Z68.29 Body mass index [BMI] 29.0-29.9, adult
CPT/HCPCS: 36415; 36600; 51702; 71045; 74176; 74241; 80048; 80053; 80202; 81001; 82009; 82306; 82330; 82803; 83036; 83605; 83690; 83735; 83880; 83970; 84100; 84134; 84478; 84484; 85025; 85610; 87040; 87070; 87077; 87086; 87150; 87181; 87205; 93005; 93306; 94002; 94003; 94770; 96361; 96374; 96375; 99284; 99291; A6250; A9270; J0330; J0637; J1170; J1650; J1815; J2060; J2185; J3370; J3490; J7040; J7120; Q9963; 81003; 87661; 87801; 99285

== ENCOUNTER 2018-11-19 09:22 | Outpatient (CLI) | payer SELFPAY ==
[2018-11-19] MEDS ORDERED: DIATR MEGLU/DIATRIZOATE SODIUM 120 ML BOTTLE PO ONE (10:27)
--- NOTE | 2018-11-20 11:19 | XRAY Report ---
Reason: CLOGGED PEG TUBE Procedure Date: 11/19/2018 Accession Number: [id number] / [id number] Procedure: XR - Abdomen 1 View X-Ray CPT Code: 18404 FULL RESULT: EXAM: ABDOMEN RADIOGRAPHY EXAM DATE: 11/19/2018 10:23 AM. CLINICAL HISTORY: CLOGGED PEG TUBE. COMPARISON: 09/30/2018 12:35 PM. TECHNIQUE: 1 view. FINDINGS: Bowel Gas Pattern: Within normal limits. No dilated loops. Other: External biliary drain overlies the right upper quadrant. There is a bowel stent involving the first portion of duodenum. There is a GJ tube with distal tubing in the proximal jejunum; this portion of the tubing is clogged per patient and she does not use distal port. Injection through the gastric port shows contrast within nondilated stomach and extending into the region of the bowel stent. IMPRESSION: As above. RADIA
== END 2018-11-19 09:23 | disposition home or self-care (01) ==
LOC: DI 09:22
PROVIDERS: ATTEND Internal Medicine
DX: T85.898A Other specified complication of other internal prosthetic devices, implants and grafts, initial encounter (principal)
CPT/HCPCS: 74018; Q9963

== ENCOUNTER 2018-12-19 16:24 | Emergency (ER) | payer MEDICARE ==
[2018-12-19] MEDS ORDERED: SODIUM CHLORIDE 0.9% 1,000 ML IV ONE (16:53)
--- NOTE | 2018-12-19 16:55 | ED Physician Documentation ---
PD HPI ABD PAIN - Stated complaint Stated Complaint: ABD PAIN - Chief complaint Chief Complaint: Abd Pain - History obtained from History obtained from: Patient - History of Present Illness Timing - onset: Yesterday (She had a gastric perforation in September, was followed by sepsis. A Venkat patch. She had respiratory failure and was sent to the [facility]. She is been home from rehab for about 2 weeks. Starting rehab she is been eating oral food but also using her G-tube. Note that the jejunal port on her JG tube has not worked for a long time. Starting yesterday she had central abdominal pain after eating. It got better and then got worse again today. She had a normal bowel movement yesterday after a 5-day hiatus which she treated with prune juice. She denies fevers or chills. No shortness of breath.) Review of Systems Ten Systems: 10 systems reviewed and negative Constitutional: denies: Fever, Chills Throat: denies: Dental pain / toothache, Sore throat Cardiac: denies: Chest pain / pressure, Palpitations Respiratory: denies: Dyspnea, Cough PD PAST MEDICAL HISTORY - Past Medical History Cardiovascular: Hypertension Respiratory: None Neuro: None Endocrine/Autoimmune: Type 2 diabetes GI: Other [employer]: Other : None Musculoskeletal: None Derm: None - Past Surgical History Past Surgical History: No - Present Medications Home Medications: Ambulatory Orders Medication Instructions Recorded Confirmed Amlodipine Besylate [Norvasc] 10 mg PO DAILY 09/25/18 09/25/18 Canagliflozin [Invokana] 100 mg PO DAILY 09/25/18 09/25/18 Glipizide [Glucotrol] 10 mg PO DAILYWM 09/25/18 09/25/18 HYDROcod/ACETAM 5/325 [[place] 5/325] 1 - 2 tab PO Q6H PRN 09/25/18 09/25/18 Metformin HCl [Glucophage] 1,000 mg PO BIDWM 09/25/18 09/25/18 Omeprazole 20 mg PO QDAC 09/25/18 09/25/18 Ondansetron Odt [Zofran Odt] 4 mg PO Q6H PRN 09/25/18 09/25/18 Omeprazole 20 mg PO DAILY #30 capsule. 12/19/18 - Allergies Allergies/Adverse Reactions: Allergies Allergy/AdvReac Type Severity Reaction Status Date / Time Penicillins Allergy Rash Verified 12/19/18 16:29 - Social History Does the pt smoke?: No Smoking Status: Never smoker Does the pt drink ETOH?: No Does the pt have substance abuse?: No - Family History Family history: reports: Non contributory - Immunizations Immunizations are current?: Yes - POLST Patient has POLST: No PD ED PE NORMAL - Vitals Vital signs reviewed: Yes - General General: Alert and oriented X 3 (She appears well and in no distress) - HEENT HEENT: PERRL, EOMI - Neck Neck: Supple, no meningeal sign, No bony TTP - Cardiac Cardiac: RRR, No murmur - Respiratory Respiratory: No respiratory distress, Clear bilaterally - Abdomen Abdomen: Other (Extensive healing surgical scars of the abdomen. There is a biliary drain in the right upper quadrant with minimal bile in the bag. There is a JG tube in the left upper quadrant. The distal port I am unable to flush, she says that has not worked in a long time. The proximal port flushes easily.) - Back Back: No CVA TTP, No spinal TTP - Derm Derm: Normal color, Warm and dry - Extremities Extremities: No edema, No calf tenderness / cord - Neuro Neuro: Alert and oriented X 3, Normal speech Results - Vitals Vitals: Vital Signs - 24 hr 12/19/18 12/19/18 12/19/18 16:29 16:47 17:08 Temperature 36.9 C Heart Rate 75 66 78 Respiratory 15 18 18 Rate Blood Pressure 148/83 H 163/105 H 162/105 H O2 Saturation 100 100 100 12/19/18 18:00 Temperature Heart Rate 81 Respiratory 18 Rate Blood Pressure 142/115 H O2 Saturation 99 Oxygen O2 Source Room air - Labs Labs: Laboratory Tests 12/19/18 12/19/18 12/19/18 16:58 16:58 16:58 WBC 7.7 RBC 3.98 L Hgb 11.3 L Hct 34.3 L MCV 86.2 MCH 28.4 MCHC 32.9 RDW 15.1 H Plt Count 337 MPV 8.4 Neut # (Auto) 4.1 Lymph # (Auto) 2.7 [place] # (Auto) 0.6 Eos # (Auto) 0.1 Baso # (Auto) 0.1 Absolute Nucleated RBC 0.00 Nucleated RBC % 0.0 PT 11.3 INR 1.0 Sodium 135 Potassium 3.8 Chloride 97 L Carbon Dioxide 28 Anion Gap 10.0 BUN 10 Creatinine 0.9 Estimated GFR (MDRD) 61 L Glucose 140 H Lactic Acid Calcium 9.4 Total Bilirubin 0.8 AST 26 ALT 24 Alkaline Phosphatase 70 Total Protein 7.8 Albumin 3.5 Globulin 4.3 H Albumin/Globulin Ratio 0.8 L Lipase 54 H 12/19/18 16:58 WBC RBC Hgb Hct MCV MCH MCHC RDW Plt Count MPV Neut # (Auto) Lymph # (Auto) [place] # (Auto) Eos # (Auto) Baso # (Auto) Absolute Nucleated RBC Nucleated RBC % PT INR Sodium Potassium Chloride Carbon Dioxide Anion Gap BUN Creatinine Estimated GFR (MDRD) Glucose Lactic Acid 0.9 Calcium Total Bilirubin AST ALT Alkaline Phosphatase Total Protein Albumin Globulin Albumin/Globulin Ratio Lipase PD MEDICAL DECISION MAKING - ED course ED course: 73-year-old woman with recently complicated abdominal history. She presents today with postprandial central abdominal pain. She is nontender. CT imaging shows no complication and her labs are very reassuring and case discussed by phone with the on-call surgeon, Dr. Marcial who recommended follow-up with the [facility] as scheduled. Departure - Departure Disposition: 01 Home, Self Care Clinical Impression: Abdominal pain Qualifiers: Abdominal location: generalized Qualified Code(s): R10.84 - Generalized abdominal pain Condition: Good Record reviewed to determine appropriate education?: Yes Instructions: Abdominal Pain Prescriptions: Omeprazole 20 mg PO DAILY #30 capsule. Comments: Today your CAT scan and labs are without evidence of complication. No evidence of new issues. Make sure you are taking your omeprazole. You can eat if tolerated but you can also use the gastric tube to continue tube feedings. Follow-up with [facility] with the copy of the CAT scan on CD. Next available appointment. Return for new or worsening symptoms.
[2018-12-19] MEDS ORDERED: IOVERSOL 320 100 ML VIAL IVP ONE ×2 (17:07→18:35)
[2018-12-19] MEDS ORDERED: IOVERSOL 320 50 ML VIAL ONE (17:08)
[2018-12-19 17:10] LABS: BASOPHILS # (AUTO) 0.1 10^3/uL (0.0-0.1); BASOPHILS % (AUTO) 0.7 %; EOSINOPHILS # (AUTO) 0.1 10^3/uL (0.0-0.7); EOSINOPHILS % (AUTO) 1.3 %; HGB - HEMOGLOBIN 11.3 g/dL (12.0-16.0); LYMPHOCYTES # (AUTO) 2.7 10^3/uL (1.5-3.5); LYMPHOCYTES % (AUTO) 35.6 %; MEAN CORPUSCULAR HEMOGLOBIN 28.4 pg (27.0-31.0); MEAN CORPUSCULAR HGB CONC 32.9 g/dL (32.0-36.0); MEAN CORPUSCULAR VOLUME 86.2 fL (81.0-99.0); MEAN PLATELET VOLUME 8.4 fL (7.9-10.8); MONOCYTES # (AUTO) 0.6 10^3/uL (0.0-1.0); MONOCYTES % (AUTO) 8.2 %; NEUTROPHILS # (AUTO) 4.1 10^3/uL (1.5-6.6); NEUTROPHILS % (AUTO) 53.9 %; PLT - PLATELET COUNT 337 10^3/uL (130-450); RED BLOOD COUNT 3.98 10^6/uL (4.20-5.40); RED CELL DISTRIBUTION WIDTH 15.1 % (12.0-15.0); WHITE BLOOD COUNT 7.7 x10^3/uL (4.8-10.8)
[2018-12-19 17:19] LABS: ALBUMIN 3.5 g/dL (3.2-5.5); ALBUMIN/GLOBULIN RATIO 0.8 (1.0-2.2); BILIRUBIN,TOTAL 0.8 mg/dL (0.2-1.0); CALCIUM 9.4 mg/dL (8.5-10.3); CREATININE 0.9 mg/dL (0.4-1.0); TOTAL PROTEIN 7.8 g/dL (6.7-8.2)
[2018-12-19 17:26] LABS: PT - PROTHROMBIN TIME 11.3 secs (9.9-12.6)
[2018-12-19] MEDS ORDERED: MORPHINE 2 MG/ML CARPUJECT IVP STA (17:53)
[2018-12-19] MEDS ORDERED: IOVERSOL 320 50 ML VIAL PO ONE (18:35)
--- NOTE | 2018-12-19 19:13 | CT Report ---
Reason: IV and G tube contrast, central abd pain, post op Procedure Date: 12/19/2018 Accession Number: [id number] / [id number] Procedure: CT - Abdomen/Pelvis W CPT Code: FULL RESULT: EXAM: CT ABDOMEN AND PELVIS EXAM DATE: 12/19/2018 06:32 PM. CLINICAL HISTORY: Central abdomen pain postop. COMPARISONS: ABDOMEN/PELVIS W/O 09/25/2018 3:26 PM. TECHNIQUE: Routine helical CT imaging was performed through the abdomen and pelvis. IV contrast: 100 cc of Optiray 320. Enteric contrast: Yes. Reconstructions: Coronal and sagittal. In accordance with CT protocol optimization, one or more of the following dose reduction techniques were utilized for this exam: automated exposure control, adjustment of mA and/or KV based on patient size, or use of iterative reconstructive technique. FINDINGS: Lung Bases: Unremarkable. Liver: Normal. No masses. Gallbladder/Bile Ducts: Unremarkable. Spleen: Normal. Pancreas: Normal. Adrenal Glands: Normal. Kidneys: Normal. No masses or hydronephrosis. Peritoneal Cavity/Bowel: Thick-walled masses with low density center, between the posterior dome of the liver and the hemidiaphragm 2.4 x 2.2 x 3.7 cm, at the tip of liver 1.9 x 1.4 x 1.8 cm. Gastrojejunostomy tube in place, extending through a large caliber gastroduodenal stent. Past stranding surrounding the stent. Overlying pigtail drainage catheter abutting the proximal stent. Borderline maritza hepatis lymph nodes. No free fluid, free air or retroperitoneal adenopathy. The appendix is well visualized and normal. Pelvic Organs: Normal. The bladder and visualized pelvic organs are within normal limits. Vasculature: No aneurysms or other significant abnormality. Bones: No significant abnormality. Other: Small amount of complex fluid in the deep upper and lower incision site without air bubbles, likely resolving postop seromas. IMPRESSION: 1. Interval placement of a large caliber gastroduodenal stent, with gastrojejunostomy tube extending through the stent, and with pigtail drainage catheter anterior to the stent. 2. Interval resolution of abdominal fluid, with soft-tissue abnormalities compatible with necrotic masses between the posterior dome of the liver and the diaphragm and at the liver tip. 3. Borderline maritza hepatis lymph nodes noted. RADIA
[2018-12-19] MEDS ORDERED: PANTOPRAZOLE 40 MG VIAL IVP STA (19:46)
[2018-12-19] MEDS ORDERED: ONDANSETRON 4 MG/2 ML VIAL IVP STA (19:46)
[2018-12-19 20:00] VITALS: BP 157/83
== END 2018-12-19 20:39 | disposition home or self-care (01) ==
LOC: ED 16:24
DX: R10.84 Generalized abdominal pain (principal); Z98.890 Other specified postprocedural states; Z93.4 Other artificial openings of gastrointestinal tract status; I10 Essential (primary) hypertension; E11.9 Type 2 diabetes mellitus without complications; Z79.84 Long term (current) use of oral hypoglycemic drugs
CPT/HCPCS: 36415; 74177; 80053; 83605; 83690; 85025; 85610; 96361; 96374; 99284; Q9967

== ENCOUNTER 2019-01-16 08:45 | Outpatient (CLI) | payer MEDICARE, MEDICAID ==
[2019-01-16 12:42] LABS: BILIRUBIN,URINE NEGATIVE (NEGATIVE); GLUCOSE, URINE (UA) NEGATIVE (NEGATIVE); KETONES,URINE (UA) NEGATIVE (NEGATIVE); LEUKOCYTE ESTERASE, URINE LARGE (NEGATIVE); NITRITE,URINE POSITIVE (NEGATIVE); OCCULT BLOOD,URINE SMALL (NEGATIVE); PROTEIN,URINE TRACE mg/dL (NEGATIVE); UROBILINOGEN,URINE 0.2 (NORMAL) E.U./dL (NORMAL)
[2019-01-16 12:44] LABS: CLARITY,URINE CLOUDY (CLEAR)
[2019-01-16 12:56] LABS: BACTERIA,URINE Moderate /HPF (None Seen); SQUAMOUS EPITHELIAL CELL,UR FEW Squamous (<= Few)
== END 2019-01-16 23:59 | disposition home or self-care (01) ==
LOC: LAB.R 08:45
PROVIDERS: ATTEND Physician Assistant Medical
DX: N39.0 Urinary tract infection, site not specified (principal); R30.0 Dysuria
CPT/HCPCS: 81001; 81003; 87086; 87181

== ENCOUNTER 2019-03-04 13:51 | Outpatient (CLI) | payer MEDICARE, MEDICAID ==
[2019-03-04 19:14] LABS: HB2 TOTAL 11.3 g/dL; HEMOGLOBIN A1C 0.54 g/dL; HEMOGLOBIN A1C % 6.5 % (4.6-6.2)
== END 2019-03-04 23:59 | disposition home or self-care (01) ==
LOC: LAB.N 13:51
PROVIDERS: ATTEND Nurse Practitioner Gerontology
DX: E11.9 Type 2 diabetes mellitus without complications (principal)
CPT/HCPCS: 36415; 83036

== ENCOUNTER 2019-09-03 09:30 | Outpatient (CLI) | payer MEDICARE, MEDICAID ==
[2019-09-03 12:13] LABS: CALCIUM 9.3 mg/dL (8.5-10.3)
[2019-09-03 12:17] LABS: HB2 TOTAL 13.4 g/dL; HEMOGLOBIN A1C 0.63 g/dL; HEMOGLOBIN A1C % 6.5 % (4.6-6.2)
[2019-09-03 12:43] LABS: CREATININE,URINE 34.1 mg/dL; MICROALBUM/CREATININE RATIO,UR 41.1 ug/mg (<30.0); MICROALBUMIN,URINE 1.4 mg/dL (0-300.0)
== END 2019-09-03 23:59 | disposition home or self-care (01) ==
LOC: LAB.WCP 09:30
PROVIDERS: ATTEND Family Medicine
DX: E11.9 Type 2 diabetes mellitus without complications (principal)
CPT/HCPCS: 36415; 80048; 82043; 82570; 83036

== ENCOUNTER 2020-06-11 07:04 | Outpatient (CLI) | payer MEDICARE, MEDICAID ==
[2020-06-11 13:24] LABS: EOSINOPHILS # (AUTO) 0.1 10^3/uL (0.0-0.7); EOSINOPHILS % (AUTO) 2.4 %; HCT - HEMATOCRIT 40.2 % (37.0-47.0); HGB - HEMOGLOBIN 13.2 g/dL (12.0-16.0); LYMPHOCYTES # (AUTO) 1.7 10^3/uL (1.5-3.5); LYMPHOCYTES % (AUTO) 42.5 %; MEAN CORPUSCULAR HEMOGLOBIN 31.5 pg (27.0-31.0); MEAN CORPUSCULAR HGB CONC 32.8 g/dL (32.0-36.0); MEAN CORPUSCULAR VOLUME 95.9 fL (81.0-99.0); MEAN PLATELET VOLUME 9.8 fL (7.9-10.8); MONOCYTES # (AUTO) 0.3 10^3/uL (0.0-1.0); MONOCYTES % (AUTO) 8.1 %; NEUTROPHILS # (AUTO) 1.9 10^3/uL (1.5-6.6); PLT - PLATELET COUNT 202 10^3/uL (130-450); RED BLOOD COUNT 4.19 10^6/uL (4.20-5.40); RED CELL DISTRIBUTION WIDTH 12.5 % (12.0-15.0); WHITE BLOOD COUNT 4.1 x10^3/uL (4.8-10.8)
[2020-06-11 14:03] LABS: THYROID STIMULATING HORMONE 1.62 uIU/mL (0.34-5.60)
[2020-06-11 14:07] LABS: ALBUMIN 3.9 g/dL (3.2-5.5); ALBUMIN/GLOBULIN RATIO 1.4 (1.0-2.2); ALKALINE PHOSPHATASE 64 IU/L (42-121); ALT ALANINE AMINOTRANSFERASE 22 IU/L (10-60); AST ASPARTATE AMINOTRANSFERASE 26 IU/L (10-42); BUN - BLOOD UREA NITROGEN 26 mg/dL (6-20); CALCIUM 9.1 mg/dL (8.5-10.3); CARBON DIOXIDE - CO2 28 mmol/L (21-32); CHLORIDE 106 mmol/L (101-111); CHOL/HDL RATIO 2.8 (<4.4); CHOLESTEROL 222 mg/dL; GFR - MDRD 54 (>89); GLUCOSE 113 mg/dL (70-100); HDL CHOLESTEROL 78 mg/dL; LDL CHOLESTEROL,CALCULATED 129 mg/dL; LDL/HDL RATIO 1.7 (<4.4); POTASSIUM 4.8 mmol/L (3.5-5.0); SODIUM 139 mmol/L (135-145); TOTAL PROTEIN 6.6 g/dL (6.7-8.2); TRIGLYCERIDES 76 mg/dL; VLDL CHOLESTEROL 15 mg/dL
[2020-06-11 14:12] LABS: CREATININE,URINE 84.7 mg/dL; MICROALBUM/CREATININE RATIO,UR 17.7 ug/mg (<30.0); MICROALBUMIN,URINE 1.5 mg/dL (0-300.0)
[2020-06-11 14:42] LABS: ESTIMATED AVERAGE GLUCOSE 148 mg/dL (70-100); HEMOGLOBIN A1c% 6.8 % (4.27-6.07)
== END 2020-06-11 07:05 | disposition home or self-care (01) ==
LOC: LAB.WCP 07:04
PROVIDERS: ATTEND Internal Medicine
DX: E11.9 Type 2 diabetes mellitus without complications (principal); I10 Essential (primary) hypertension
CPT/HCPCS: 36415; 80053; 80061; 82043; 82570; 83036; 83721; 84443; 85025

== ENCOUNTER 2021-02-03 08:00 | Outpatient (CLI) | payer MEDICARE, MEDICAID ==
[2021-02-03 12:35] LABS: ESTIMATED AVERAGE GLUCOSE 154 mg/dL (70-100)
[2021-02-03 13:06] LABS: ALT ALANINE AMINOTRANSFERASE 21 IU/L (10-60); BUN - BLOOD UREA NITROGEN 26 mg/dL (6-20); CALCIUM 9.1 mg/dL (8.5-10.3); CARBON DIOXIDE - CO2 28 mmol/L (21-32); CHLORIDE 105 mmol/L (101-111); CHOL/HDL RATIO 2.1 (<4.4); CHOLESTEROL 179 mg/dL; CREATININE 0.9 mg/dL (0.4-1.0); GFR - MDRD 61 (>89); GLUCOSE 135 mg/dL (70-100); HDL CHOLESTEROL 84 mg/dL; LDL CHOLESTEROL,CALCULATED 79 mg/dL; LDL/HDL RATIO 0.9 (<4.4); SODIUM 141 mmol/L (135-145); TRIGLYCERIDES 82 mg/dL; VLDL CHOLESTEROL 16 mg/dL
== END 2021-02-03 23:59 | disposition home or self-care (01) ==
LOC: LAB.WCP 08:00
PROVIDERS: ATTEND Internal Medicine
DX: E11.29 Type 2 diabetes mellitus with other diabetic kidney complication (principal)
CPT/HCPCS: 36415; 80048; 80061; 83036; 83721; 84460

== ENCOUNTER 2021-08-05 08:00 | Outpatient (CLI) | payer MEDICARE | END 2021-08-05 08:01 | disposition home or self-care (01) | LOC: LAB.N 08:00 → LAB.WCP 08:01 | PROVIDERS: ATTEND Internal Medicine | DX: Z12.11 Encounter for screening for malignant neoplasm of colon (principal) | CPT/HCPCS: 82270 ==

== ENCOUNTER 2021-09-09 14:25 | Outpatient (CLI) | payer MEDICARE | END 2021-09-09 14:26 | disposition home or self-care (01) | LOC: LAB.N 14:25 | PROVIDERS: ATTEND Internal Medicine | DX: Z53.9 Procedure and treatment not carried out, unspecified reason (principal) | CPT/HCPCS: 36415; 86480 ==

== ENCOUNTER 2021-09-09 14:28 | Outpatient (CLI) | payer MEDICARE ==
--- NOTE | 2021-09-09 16:56 | XRAY Report ---
PROCEDURE: Chest 2 View X-Ray INDICATIONS: CXR FOR EMPLOYMENT PHYSICAL TECHNIQUE: 2 view(s) of the chest. COMPARISON: None. FINDINGS: Surgical changes and devices: None. Lungs and pleura: No pleural effusions or pneumothorax. Lungs are clear. Mediastinum: Mediastinal contours are normal. Heart size is normal. Bones and chest wall: No suspicious bony abnormalities. Soft tissues appear unremarkable. IMPRESSION: No evidence acute pulmonary process. Reviewed by: Ben España MD on 09/09/2021 4:55 PM PDT Approved by: Ben España MD on 09/09/2021 4:55 PM PDT Station ID: [id number]
== END 2021-09-09 14:29 | disposition home or self-care (01) ==
LOC: DI.N 14:28
PROVIDERS: ATTEND Internal Medicine
DX: Z02.1 Encounter for pre-employment examination (principal); Z11.1 Encounter for screening for respiratory tuberculosis

== ENCOUNTER 2021-09-10 09:22 | Outpatient (CLI) | payer MEDICARE ==
[2021-09-10 19:08] LABS: BASOPHILS # (AUTO) 0.1 10^3/uL (0.0-0.1); BASOPHILS % (AUTO) 0.8 %; EOSINOPHILS # (AUTO) 0.1 10^3/uL (0.0-0.7); EOSINOPHILS % (AUTO) 1.4 %; HCT - HEMATOCRIT 41.7 % (37.0-47.0); HGB - HEMOGLOBIN 13.5 g/dL (12.0-16.0); LYMPHOCYTES # (AUTO) 1.5 10^3/uL (1.5-3.5); MEAN CORPUSCULAR HEMOGLOBIN 31.7 pg (27.0-31.0); MEAN CORPUSCULAR HGB CONC 32.4 g/dL (32.0-36.0); MEAN CORPUSCULAR VOLUME 97.9 fL (81.0-99.0); MONOCYTES # (AUTO) 0.5 10^3/uL (0.0-1.0); MONOCYTES % (AUTO) 7.5 %; NEUTROPHILS # (AUTO) 4.3 10^3/uL (1.5-6.6); NEUTROPHILS % (AUTO) 66.1 %; PLT - PLATELET COUNT 170 10^3/uL (130-450); RED BLOOD COUNT 4.26 10^6/uL (4.20-5.40); RED CELL DISTRIBUTION WIDTH 12.5 % (12.0-15.0); WHITE BLOOD COUNT 6.4 x10^3/uL (4.8-10.8)
[2021-09-10 19:31] LABS: ALBUMIN 4.1 g/dL (3.2-5.5); ALBUMIN/GLOBULIN RATIO 1.4 (1.0-2.2); ALKALINE PHOSPHATASE 57 IU/L (42-121); ALT ALANINE AMINOTRANSFERASE 23 IU/L (10-60); AST ASPARTATE AMINOTRANSFERASE 22 IU/L (10-42); BILIRUBIN,TOTAL 1.5 mg/dL (0.2-1.0); BUN - BLOOD UREA NITROGEN 23 mg/dL (6-20); CALCIUM 9.5 mg/dL (8.5-10.3); CARBON DIOXIDE - CO2 29 mmol/L (21-32); CHLORIDE 106 mmol/L (101-111); CHOL/HDL RATIO 2.2 (<4.4); CHOLESTEROL 201 mg/dL; CREATININE 0.9 mg/dL (0.4-1.0); CREATININE,URINE 95.6 mg/dL; GFR - MDRD 61 (>89); GLUCOSE 146 mg/dL (70-100); HDL CHOLESTEROL 90 mg/dL; LDL CHOLESTEROL,CALCULATED 92 mg/dL; MICROALBUM/CREATININE RATIO,UR 34.5 ug/mg (<30.0); MICROALBUMIN,URINE 3.3 mg/dL (0-300.0); POTASSIUM 5.1 mmol/L (3.5-5.0); SODIUM 139 mmol/L (135-145); TRIGLYCERIDES 96 mg/dL; VLDL CHOLESTEROL 19 mg/dL
[2021-09-10 19:39] LABS: THYROID STIMULATING HORMONE 0.95 uIU/mL (0.34-5.60)
[2021-09-12 10:07] LABS: ESTIMATED AVERAGE GLUCOSE 171 mg/dL (70-100); HEMOGLOBIN A1c% 7.6 % (4.27-6.07)
== END 2021-09-10 09:23 | disposition home or self-care (01) ==
LOC: LAB.N 09:22
PROVIDERS: ATTEND Internal Medicine
DX: I10 Essential (primary) hypertension (principal); E11.29 Type 2 diabetes mellitus with other diabetic kidney complication; R00.2 Palpitations
CPT/HCPCS: 36415; 80053; 80061; 82043; 82570; 83036; 83721; 84443; 85025

== ENCOUNTER 2021-09-15 07:38 | Outpatient (CLI) | payer MEDICARE | END 2021-09-15 07:39 | disposition home or self-care (01) | LOC: LAB.N 07:38 | PROVIDERS: ATTEND Internal Medicine | DX: Z02.1 Encounter for pre-employment examination (principal) | CPT/HCPCS: 36415; 86480 ==

== ENCOUNTER 2021-12-01 10:22 | Outpatient (CLI) | payer MEDICARE ==
[2021-12-01 12:15] LABS: ESTIMATED AVERAGE GLUCOSE 177 mg/dL (70-100); HEMOGLOBIN A1c% 7.8 % (4.27-6.07)
[2021-12-01 12:16] LABS: CALCIUM 9.7 mg/dL (8.5-10.3); CREATININE 0.9 mg/dL (0.4-1.0); POTASSIUM 4.4 mmol/L (3.5-5.0)
== END 2021-12-01 10:23 | disposition home or self-care (01) ==
LOC: LAB.N 10:22
PROVIDERS: ATTEND Internal Medicine
DX: E11.22 Type 2 diabetes mellitus with diabetic chronic kidney disease (principal)
CPT/HCPCS: 36415; 80048; 83036

== ENCOUNTER 2022-11-22 07:18 | Outpatient (CLI) | payer MEDICARE ==
[2022-11-22 12:34] LABS: BASOPHILS # (AUTO) 0.1 10^3/uL (0.0-0.1); BASOPHILS % (AUTO) 0.8 %; EOSINOPHILS # (AUTO) 0.1 10^3/uL (0.0-0.7); EOSINOPHILS % (AUTO) 1.8 %; HCT - HEMATOCRIT 42.1 % (37.0-47.0); HGB - HEMOGLOBIN 13.7 g/dL (12.0-16.0); LYMPHOCYTES # (AUTO) 1.7 10^3/uL (1.5-3.5); LYMPHOCYTES % (AUTO) 27.9 %; MEAN CORPUSCULAR HEMOGLOBIN 31.1 pg (27.0-31.0); MEAN CORPUSCULAR HGB CONC 32.5 g/dL (32.0-36.0); MEAN CORPUSCULAR VOLUME 95.7 fL (81.0-99.0); MONOCYTES # (AUTO) 0.5 10^3/uL (0.0-1.0); MONOCYTES % (AUTO) 8.7 %; NEUTROPHILS # (AUTO) 3.7 10^3/uL (1.5-6.6); NEUTROPHILS % (AUTO) 60.6 %; PLT - PLATELET COUNT 188 10^3/uL (130-450); RED CELL DISTRIBUTION WIDTH 12.2 % (12.0-15.0); WHITE BLOOD COUNT 6.1 x10^3/uL (4.8-10.8)
[2022-11-22 12:51] LABS: ALBUMIN 4.3 g/dL (3.2-5.5); ALBUMIN/GLOBULIN RATIO 1.6 (1.0-2.2); ALKALINE PHOSPHATASE 64 IU/L (42-121); ALT ALANINE AMINOTRANSFERASE 16 IU/L (10-60); AST ASPARTATE AMINOTRANSFERASE 18 IU/L (10-42); BILIRUBIN,TOTAL 0.8 mg/dL (0.2-1.0); BUN - BLOOD UREA NITROGEN 34 mg/dL (6-20); CALCIUM 9.5 mg/dL (8.5-10.3); CARBON DIOXIDE - CO2 29 mmol/L (21-32); CHLORIDE 106 mmol/L (101-111); CHOL/HDL RATIO 2.4 (<4.4); CHOLESTEROL 198 mg/dL; CREATININE 1.2 mg/dL (0.6-1.3); GFR - MDRD 43 (>89); GLUCOSE 188 mg/dL (74-104); HDL CHOLESTEROL 82 mg/dL; LDL CHOLESTEROL,CALCULATED 99 mg/dL; LDL/HDL RATIO 1.2 (<4.4); POTASSIUM 4.3 mmol/L (3.5-4.5); SODIUM 139 mmol/L (135-145); TRIGLYCERIDES 87 mg/dL (48-352); VLDL CHOLESTEROL 17 mg/dL
[2022-11-22 13:10] LABS: CREATININE,URINE 120.4 mg/dL; MICROALBUM/CREATININE RATIO,UR 30.7 ug/mg (<30.0); MICROALBUMIN,URINE 3.7 mg/dL
[2022-11-22 13:31] LABS: ESTIMATED AVERAGE GLUCOSE 197 mg/dL (70-100); HEMOGLOBIN A1c% 8.5 % (4.27-6.07)
== END 2022-11-22 07:19 | disposition home or self-care (01) ==
LOC: LAB.N 07:18
PROVIDERS: ATTEND Internal Medicine
DX: I12.9 Hypertensive chronic kidney disease with stage 1 through stage 4 chronic kidney disease, or unspecified chronic kidney disease (principal); E78.5 Hyperlipidemia, unspecified; E11.22 Type 2 diabetes mellitus with diabetic chronic kidney disease
CPT/HCPCS: 36415; 80053; 80061; 82043; 82570; 83036; 83721; 85025

== ENCOUNTER 2023-01-19 07:05 | Outpatient (CLI) | payer MEDICARE ==
[2023-01-19 12:17] LABS: CALCIUM 9.7 mg/dL (8.5-10.3); POTASSIUM 4.5 mmol/L (3.5-4.5)
[2023-01-19 12:40] LABS: ESTIMATED AVERAGE GLUCOSE 194 mg/dL (70-100); HEMOGLOBIN A1c% 8.4 % (4.27-6.07)
== END 2023-01-19 07:06 | disposition home or self-care (01) ==
LOC: LAB.N 07:05
PROVIDERS: ATTEND Internal Medicine
DX: E11.22 Type 2 diabetes mellitus with diabetic chronic kidney disease (principal)
CPT/HCPCS: 36415; 80048; 83036

== ENCOUNTER 2023-04-25 07:09 | Outpatient (CLI) | payer MEDICARE ==
[2023-04-25 12:38] LABS: ESTIMATED AVERAGE GLUCOSE 243 mg/dL (70-100); HEMOGLOBIN A1c% 10.1 % (4.27-6.07)
[2023-04-25 12:54] LABS: CALCIUM 9.2 mg/dL (8.5-10.3); POTASSIUM 4.4 mmol/L (3.5-4.5)
== END 2023-04-25 07:10 | disposition home or self-care (01) ==
LOC: LAB.N 07:09
PROVIDERS: ATTEND Internal Medicine
DX: E11.22 Type 2 diabetes mellitus with diabetic chronic kidney disease (principal); N18.9 Chronic kidney disease, unspecified
CPT/HCPCS: 36415; 80048; 83036

== ENCOUNTER 2023-08-21 08:03 | Outpatient (CLI) | payer MEDICARE ==
[2023-08-21 12:50] LABS: BASOPHILS # (AUTO) 0.1 10^3/uL (0.0-0.1); BASOPHILS % (AUTO) 0.9 %; EOSINOPHILS # (AUTO) 0.1 10^3/uL (0.0-0.7); EOSINOPHILS % (AUTO) 2.6 %; HCT - HEMATOCRIT 40.5 % (37.0-47.0); HGB - HEMOGLOBIN 13.4 g/dL (12.0-16.0); LYMPHOCYTES # (AUTO) 1.6 10^3/uL (1.5-3.5); LYMPHOCYTES % (AUTO) 30.1 %; MEAN CORPUSCULAR HEMOGLOBIN 31.5 pg (27.0-31.0); MEAN CORPUSCULAR HGB CONC 33.1 g/dL (32.0-36.0); MEAN CORPUSCULAR VOLUME 95.3 fL (81.0-99.0); MEAN PLATELET VOLUME 9.8 fL (7.9-10.8); MONOCYTES # (AUTO) 0.5 10^3/uL (0.0-1.0); MONOCYTES % (AUTO) 8.5 %; NEUTROPHILS # (AUTO) 3.1 10^3/uL (1.5-6.6); NEUTROPHILS % (AUTO) 57.7 %; PLT - PLATELET COUNT 252 10^3/uL (130-450); RED BLOOD COUNT 4.25 10^6/uL (4.20-5.40); RED CELL DISTRIBUTION WIDTH 12.2 % (12.0-15.0); WHITE BLOOD COUNT 5.4 x10^3/uL (4.8-10.8)
[2023-08-21 13:01] LABS: ESTIMATED AVERAGE GLUCOSE 203 mg/dL (70-100); HEMOGLOBIN A1c% 8.7 % (4.27-6.07)
[2023-08-21 13:22] LABS: ALBUMIN 3.8 g/dL (3.2-5.5); ALBUMIN/GLOBULIN RATIO 1.2 (1.0-2.2); ALKALINE PHOSPHATASE 85 IU/L (42-121); ALT ALANINE AMINOTRANSFERASE 15 IU/L (10-60); AST ASPARTATE AMINOTRANSFERASE 14 IU/L (10-42); BILIRUBIN,TOTAL 0.8 mg/dL (0.2-1.0); BUN - BLOOD UREA NITROGEN 25 mg/dL (6-20); CALCIUM 9.5 mg/dL (8.5-10.3); CARBON DIOXIDE - CO2 30 mmol/L (21-32); CHLORIDE 103 mmol/L (101-111); CHOL/HDL RATIO 2.9 (<4.4); CHOLESTEROL 197 mg/dL; GFR - MDRD 53 (>89); GLUCOSE 200 mg/dL (74-104); HDL CHOLESTEROL 69 mg/dL; LDL CHOLESTEROL,CALCULATED 110 mg/dL; LDL/HDL RATIO 1.6 (<4.4); POTASSIUM 4.5 mmol/L (3.5-4.5); SODIUM 137 mmol/L (135-145); TOTAL PROTEIN 6.9 g/dL (6.4-8.9); TRIGLYCERIDES 92 mg/dL (48-352); VLDL CHOLESTEROL 18 mg/dL
[2023-08-21 13:28] LABS: CREATININE,URINE 116.3 mg/dL; MICROALBUM/CREATININE RATIO,UR 117.8 ug/mg (<30.0); MICROALBUMIN,URINE 13.7 mg/dL
== END 2023-08-21 08:04 | disposition home or self-care (01) ==
LOC: LAB.N 08:03
PROVIDERS: ATTEND Internal Medicine
DX: I42.9 Cardiomyopathy, unspecified (principal); E78.5 Hyperlipidemia, unspecified; E11.22 Type 2 diabetes mellitus with diabetic chronic kidney disease
CPT/HCPCS: 36415; 80053; 80061; 82043; 82570; 83036; 83721; 85025